=== PATIENT | female | born 1945 | race Caucasian/White ===

== ENCOUNTER 2018-09-09 18:09 | Emergency (ER) | payer MEDICARE ==
[2018-09-09] MEDS ORDERED: NORCO 5/325 MG PO ONE (18:22)
[2018-09-09] MEDS ORDERED: Lopressor 25MG Tab PO ONE (18:22)
--- NOTE | 2018-09-09 18:26 | ERPHSYRPT ---
- History of Present Illness Time Seen by Provider: 09/09/18 18:23 Source: patient Patient Subjective Stated Complaint: Pt states "I am having pain on the right shoulder and this rash on the right side since yesterday. Also, my blood pressure is up." Triage Nursing Assessment: Pt alert and oriented X 3, skin Pwd. Pt ambulates with an upright steady gait, able to speak in clear full sentences. Pt has rash on her right shoulder and painful to touch. Physician History: mod painful ache rash of the right chest wall for one day, missed her blood pressure pill today, no fever, no headache, not dizzy, no NV Allergies/Adverse Reactions: No Known Drug Allergies Allergy (Unverified 11/02/15 17:44) Home Medications: Aspirin EC 81 mg [Ecotrin 81 mg] 81 mg PO DAILY 11/02/12 [History] Hydrochlorothiazide 12.5 mg PO BID 11/02/12 [History] Levothyroxine Sodium 100 Mcg [Synthroid 100 Mcg] 100 mcg PO DAILY 11/02/12 [History] Metoprolol Tartrate 50 mg [Lopressor 50 MG] 75 mg PO BID 11/02/12 [History ] Pravastatin Sodium 40 mg PO DAILY 11/02/12 [History] Losartan Potassium [Cozaar 100Mg Tablet] 100 mg PO DAILY 11/02/15 [History] Hx Tetanus, Diphtheria Vaccination/Date Given: Yes Hx Influenza Vaccination/Date Given: No Hx Pneumococcal Vaccination/Date Given: No Immunizations Up to Date: Yes - Review of Systems Constitutional: No Fever, No Lethargy Eyes: No Eye Pain, No Eye Redness, No Vision Changes Ears, Nose, & Throat: No Nose Congestion Respiratory: No Cough, No Dyspnea Cardiac: No Chest Pain, No Syncope Abdominal/Gastrointestinal: No Abdominal Pain, No Nausea, No Vomiting Skin: Rash Neurological: No Dizziness, No Focal Weakness, No Headache - Past Medical History Pertinent Past Medical History: Yes Neurological History: No Pertinent History, Other ENT History: No Pertinent History Cardiac History: High Cholesterol, Hypertension Respiratory History: No Pertinent History Endocrine Medical History: Hypothyroidism Musculoskeletal History: No Pertinent History GI Medical History: No Pertinent History History: No Pertinent History Psycho-Social History: No Pertinent History Female Reproductive Disorders: No Pertinent History - Past Surgical History Past Surgical History: Yes Neuro Surgical History: No Pertinent History Cardiac: Other Respiratory: No Pertinent History Gastrointestinal: No Pertinent History Genitourinary: No Pertinent History Musculoskeletal: No Pertinent History Female Surgical History: Hysterectomy Other Surgical History: bilateral carotid artery surgery - Social History Smoking Status: Former smoker Exposure to second hand smoke: Yes Drug Use: none Patient Lives Alone: No - Female History Hx Now: No - Nursing Vital Signs Nursing Vital Signs: Initial Vital Signs Temperature 98.7 F 09/09/18 18:14 Pulse Rate 94 H 09/09/18 18:14 Respiratory Rate 18 09/09/18 18:14 Blood Pressure 192/93 09/09/18 18:14 O2 Sat by Pulse Oximetry 96 09/09/18 18:14 Pain Scale Pain Intensity 8 - Physical Exam General Appearance: no apparent distress Eye Exam: PERRL/EOMI, eyes nml inspection Ears, Nose, Throat Exam: moist mucous membranes Neck Exam: normal inspection, non-tender, supple, full range of motion Respiratory Exam: normal breath sounds Cardiovascular Exam: regular rate/rhythm Gastrointestinal/Abdomen Exam: soft, No tenderness Extremity Exam: No swelling Neurologic Exam: alert, oriented x 3, cooperative Skin Exam: warm, dry, other (right chest wall red rash consistent w/ shingles dermatome) SpO2 Interpretation: normal SpO2: 96 Oxygen Delivery: Room Air Ordered Tests: Medication Summary Discontinued Medications Generic Name Dose Route Start Last Admin Trade Name Lázaroq PRN Reason Stop Dose Admin Hydrocodone Bitart/Acetaminophen 1 tab 09/09/18 18:22 09/09/18 18:33 [place] 5/325 Mg PO 09/09/18 18:23 1 tab STAT ONE Administration Hydrocodone Bitart/Acetaminophen Confirm 09/09/18 18:29 [place] 5/325 Mg Administered 09/09/18 18:30 Dose 1 tab .ROUTE .STK-MED ONE Acyclovir 800 mg 09/09/18 19:00 Zovirax 800 Mg PO 10/09/18 18:59 5XD ALTHEA Acyclovir Confirm 09/09/18 18:29 Zovirax 200 Mg Administered 09/09/18 18:30 Dose 800 mg .ROUTE .STK-MED ONE Acyclovir 800 mg 09/09/18 18:38 09/09/18 18:40 Zovirax 800 Mg PO 09/09/18 18:39 800 mg ONCE ONE Administration Metoprolol Tartrate 25 mg 09/09/18 18:22 09/09/18 18:33 Lopressor 25mg Tab PO 09/09/18 18:23 25 mg STAT ONE Administration Metoprolol Tartrate Confirm 09/09/18 18:29 Lopressor 25mg Tab Administered 09/09/18 18:30 Dose 25 mg .ROUTE .STK-MED ONE - Progress Progress: improved Progress Note: 09/09/18 18:[address] Whiting at 19:00 Counseled pt/family regarding: diagnosis, need for follow-up - Departure Time of Disposition: 19:02 Departure Disposition: Home Clinical Impression: Shingles Qualifiers: Herpes zoster complications: without complications Qualified Code(s): B02.9 - Zoster without complications Condition: Stable Critical Care Time: No Referrals: CEM WALKER [Primary Care Provider] - Additional Instructions: see your doctorj, return if worse, norco warnings given, acyclovir Prescriptions: Hydrocodone Bit/Acetaminophen [[place] 5-325 Tablet] 1 each PO Q6H PRN PRN #15 tablet MDD 4 PRN Reason: Pain Acyclovir 800 mg [Zovirax 800 mg] 800 mg PO 5XD 7 Days #35 tablet
[2018-09-09] MEDS ORDERED: Lopressor 25MG Tab ONE (18:29)
[2018-09-09] MEDS ORDERED: ZOVIRAX 200 MG ONE (18:29)
[2018-09-09] MEDS ORDERED: NORCO 5/325 MG ONE (18:29)
[2018-09-09] MEDS ORDERED: ZOVIRAX 800 MG PO ONE (18:38)
[2018-09-09] MEDS ORDERED: ZOVIRAX 800 MG PO SCH (19:00)
[2018-09-09 19:19] VITALS: BP 161/68; PULSE 68; O2SAT 93
== END 2018-09-09 19:50 | disposition home or self-care (01) ==
LOC: ED 18:09
DX: B02.9 Zoster without complications (principal); Z79.899 Other long term (current) drug therapy
CPT/HCPCS: 99283; A9270-GY

== ENCOUNTER 2019-09-04 10:58 | Inpatient (IN) | payer MEDICARE ==
[2019-09-04] MEDS ORDERED: MORPHINE SULFATE 4 MG INJ IV ONE (11:04)
[2019-09-04] MEDS ORDERED: BABY ASPIRIN 81 MG CHEW PO ONE (11:04)
[2019-09-04] MEDS ORDERED: Sodium Chloride 0.9% 1000 ML 1,000 ML IV SCH (11:15)
[2019-09-04] MEDS ORDERED: BABY ASPIRIN 81 MG CHEW ONE (11:17)
[2019-09-04] MEDS ORDERED: MORPHINE SULFATE 4 MG INJ ONE (11:18)
[2019-09-04 11:24] LABS: Absolute Neutrophil Ct (ANC) 8.72 (1.4-6.9); BASOPHIL % 0.4 % (0.0-0.4); Basophil (Absolute #) 0.05 (0-0.4); Eosinophil % 3.7 % (0.00-5.0); Eosinophil (Absolute #) 0.46 (0-0.5); Hematocrit 38.9 % (35-47); Hemoglobin 12.8 gm/dl (12.0-16.0); INR 0.99 (0.8-3.0); Lymphocyte (Absolute #) 2.26 (1.0-4.6); Lymphocytes % 18.2 % (24.0-44.0); Mean Cell Volume 85.9 fl (78-100); Mean Corpuscular Hemoglobin 28.3 pg (26-32); Mean Corpuscular Hgb Concent. 32.9 g/dl (32-36); Mean Platelet Volume 10.3 fl (6-9.5); Monocyte (Absolute #) 0.96 (0.0-1.3); Monocytes % 7.7 % (0.0-12.0); PROTIME 11.2 SECONDS (9.95-12.35); Platelet Count 279 K/mm3 (150-450); Red Blood Count 4.53 M/mm3 (4.1-5.4); White Blood Count 12.5 K/mm3 (4.0-10.5)
[2019-09-04 11:27] LABS: PTT 32.3 SECONDS (25.3-37.0)
[2019-09-04 11:36] LABS: ALBUMIN 4.8 g/dL (3.5-5.0); ANION GAP 18.2 MEQ/L (5-15); BILIRUBIN,TOTAL 0.7 mg/dL (0.2-1.3); Calcium 11.2 mg/dL (8.4-10.2); Creatinine 1 1.25 mg/dL (0.52-1.04); Potassium 4.4 mmol/L (3.5-5.1); Total Protein 8.8 g/dL (6.3-8.2)
--- NOTE | 2019-09-04 11:59 | ERPHSYRPT ---
- History of Present Illness Time Seen by Provider: 09/04/19 10:59 Historian: patient Exam Limitations: no limitations Patient Subjective Stated Complaint: Chest pain Triage Nursing Assessment: Patient ambulated back to ED and transferred self to bed. Patient A+O X 3. Patient's skin pink, warm and dry. Patient complains of chest pain since last night constant pressure 8/10. Patient has had N/V. Patient also complains of trudy lower extremity pain. Lungs clear a/p trudy. Heart tones audible. No edema noted. Timing/Duration: yesterday, constant Activities at Onset: none Quality: dullness, pressure Location: substernal Severity of Pain-Max: moderate Severity of Pain-Current: moderate Modifying Factors: Improves With: nothing. Worsens With: nitroglycerin Associated Symptoms: nausea, vomiting, diaphoresis, No shortness of breath Prior Chest Pain/Cardiac Workup: no prior chest pain, no prior cardiac workup Nitro Today/Relief: 0.4 mg x 2, no relief Aspirin Treatment Today: 325 mg x 1, provided at home Allergies/Adverse Reactions: No Known Drug Allergies Allergy (Verified 09/04/19 11:19) Home Medications: Aspirin EC 81 mg [Ecotrin 81 mg] 81 mg PO DAILY 11/02/12 [History] Levothyroxine Sodium 100 Mcg [Synthroid 100 Mcg] 125 mcg PO DAILY 11/02/12 [History] Metoprolol Tartrate 50 mg [Lopressor 50 MG] 100 mg PO BID 11/02/12 [ History] Losartan Potassium [Cozaar 100Mg Tablet] 100 mg PO DAILY 11/02/15 [History] Amlodipine Besylate [Norvasc] 1 tab PO DAILY 09/04/19 [History] Atorvastatin Calcium 1 tab PO HS 09/04/19 [History] Triamterene/Hydrochlorothiazid [Maxzide 37.5 mg-25 mg Tablet] 1 tab PO DAILY 08/13 [History] Hx Tetanus, Diphtheria Vaccination/Date Given: Yes Hx Influenza Vaccination/Date Given: No Hx Pneumococcal Vaccination/Date Given: No Immunizations Up to Date: Yes - Review of Systems Constitutional: No Fever, No Chills Eyes: No Symptoms Ears, Nose, & Throat: No Symptoms Respiratory: No Cough, No Dyspnea, No Dyspnea on Exertion (TRUONG) Cardiac: No Chest Pain, No Edema, No Syncope Abdominal/Gastrointestinal: Nausea, Vomiting, No Abdominal Pain, No Diarrhea Genitourinary Symptoms: No Dysuria Musculoskeletal: No Back Pain, No Neck Pain Skin: No Rash Neurological: No Dizziness, No Focal Weakness, No Sensory Changes Psychological: No Symptoms Endocrine: No Symptoms All Other Systems: Reviewed and Negative - Past Medical History Pertinent Past Medical History: Yes Neurological History: No Pertinent History, Other ENT History: No Pertinent History Cardiac History: High Cholesterol, Hypertension Respiratory History: No Pertinent History Endocrine Medical History: Hypothyroidism Musculoskeletal History: No Pertinent History GI Medical History: No Pertinent History History: No Pertinent History Psycho-Social History: No Pertinent History Female Reproductive Disorders: No Pertinent History - Past Surgical History Past Surgical History: Yes Neuro Surgical History: No Pertinent History Cardiac: Other Respiratory: No Pertinent History Gastrointestinal: No Pertinent History Genitourinary: No Pertinent History Musculoskeletal: No Pertinent History Female Surgical History: Hysterectomy Other Surgical History: bilateral carotid artery surgery - Social History Smoking Status: Former smoker Exposure to second hand smoke: Yes Drug Use: none Patient Lives Alone: No - Female History Hx Last Menstrual Period: hysterectomy - Nursing Vital Signs Nursing Vital Signs: Initial Vital Signs Temperature 97.5 F 09/04/19 11:05 Pulse Rate 69 09/04/19 11:05 Respiratory Rate 18 09/04/19 11:05 Blood Pressure 138/75 09/04/19 11:05 O2 Sat by Pulse Oximetry 97 09/04/19 11:05 Pain Scale Pain Intensity 8 - Physical Exam General Appearance: no apparent distress, alert Eye Exam: PERRL/EOMI, eyes nml inspection Ears, Nose, Throat Exam: normal ENT inspection, moist mucous membranes Neck Exam: normal inspection, non-tender, supple, full range of motion Respiratory Exam: normal breath sounds, lungs clear, No respiratory distress Cardiovascular Exam: regular rate/rhythm, normal heart sounds Gastrointestinal/Abdomen Exam: soft, No tenderness, No mass Back Exam: normal inspection, No CVA tenderness, No vertebral tenderness Extremity Exam: normal inspection, normal range of motion Neurologic Exam: alert, oriented x 3, cooperative, normal mood/affect, sensation nml, No motor deficits Skin Exam: normal color, warm, dry SpO2: 97 - Course EKG Interpreted by Me: RATE (72), Sinus Rhythm, NORMAL AXIS, NORMAL INTERVALS, NORMAL QRS - Radiology Exams Chest X-ray Interpretation: Interpreted by me (severe roto scoliosis makes reading the film very difficult. However no acute processes can't be identified. I) Ordered Tests: Active Orders 24 hr Category Date Time Status CHEST 1 VIEW (PORTABLE) Stat Exams 09/04/19 11:47 Taken CBC W DIFF Stat Lab 09/04/19 11:12 Completed CK-Creatinine Phosphokinase Stat Lab 09/04/19 11:12 Completed CMP Stat Lab 09/04/19 11:12 Completed D-DIMER QUANTITATION Stat Lab 09/04/19 11:12 Completed NT PRO BNP Stat Lab 09/04/19 11:12 Completed PROTIME WITH INR Stat Lab 09/04/19 11:12 Completed PTT Stat Lab 09/04/19 11:12 Completed TROPONIN Q3H Lab 09/04/19 11:12 Completed TROPONIN Q3H Lab 09/04/19 14:15 Ordered TROPONIN Q3H Lab 09/04/19 17:15 Ordered TROPONIN Q3H Lab 09/04/19 20:15 Ordered TROPONIN Q3H Lab 09/04/19 23:15 Ordered Medication Summary Generic Name Dose Route Start Last Admin Trade Name Freq PRN Reason Stop Dose Admin Sodium Chloride 1,000 mls @ 50 mls/hr 09/04/19 11:15 09/04/19 11:23 Sodium Chloride 0.9% 1000 Ml IV 10/04/19 11:14 50 mls/hr .Q20H ALTHEA Administration Discontinued Medications Generic Name Dose Route Start Last Admin Trade Name Freq PRN Reason Stop Dose Admin Aspirin 324 mg 09/04/19 11:04 09/04/19 11:19 Baby Aspirin 81 Mg Chew PO 09/04/19 11:05 324 mg STAT ONE Administration Aspirin Confirm 09/04/19 11:17 Baby Aspirin 81 Mg Chew Administered 09/04/19 11:18 Dose 324 mg .ROUTE .STK-MED ONE Morphine Sulfate 4 mg 09/04/19 11:04 09/04/19 11:20 Morphine Sulfate 4 Mg Inj IV 09/04/19 11:05 4 mg STAT ONE Administration Morphine Sulfate Confirm 09/04/19 11:18 Morphine Sulfate 4 Mg Inj Administered 09/04/19 11:19 Dose 4 mg .ROUTE .STK-MED ONE Lab/Rad Data: Laboratory Result Diagrams 09/04/19 11:12 09/04/19 11:12 Laboratory Results 09/04/19 09/04/19 09/04/19 Range/Units 11:12 11:12 11:12 WBC (4.0-10.5) K/mm3 RBC (4.1-5.4) M/mm3 Hgb (12.0-16.0) gm/dl Hct (35-47) % MCV (78-100) fl MCH (26-32) pg MCHC (32-36) g/dl RDW (11.5-14.0) % Plt Count (150-450) K/mm3 MPV (6-9.5) fl Gran % (36.0-66.0) % Eos # (Auto) (0-0.5) Absolute Lymphs (auto) (1.0-4.6) Absolute Monos (auto) (0.0-1.3) Lymphocytes % (24.0-44.0) % Monocytes % (0.0-12.0) % Eosinophils % (0.00-5.0) % Basophils % (0.0-0.4) % Absolute Granulocytes (1.4-6.9) Basophils # (0-0.4) PT 11.2 (9.95-12.35) SECONDS INR 0.99 (0.8-3.0) APTT 32.3 (25.3-37.0) SECONDS D-Dimer 492 (215-500) ng/mL Sodium 141 (137-145) mmol/L Potassium 4.4 (3.5-5.1) mmol/L Chloride 102 (98-107) mmol/L Carbon Dioxide 25 (22-30) mmol/L Anion Gap 18.2 H (5-15) MEQ/L BUN 22 H (7-17) mg/dL Creatinine 1.25 H (0.52-1.04) mg/dL Estimated GFR 44.5 ML/MIN Glucose 109 H (74-106) mg/dL Calcium 11.2 H (8.4-10.2) mg/dL Total Bilirubin 0.70 (0.2-1.3) mg/dL AST 77 H (14-36) U/L ALT 86 H (0-35) U/L Alkaline Phosphatase 108 (38-126) U/L Creatine Kinase 32 (30-135) U/L Troponin I < 0.012 (0.000-0.034) ng/mL NT-Pro-B Natriuret Pep 1320 H (0-900) pg/mL Serum Total Protein 8.8 H (6.3-8.2) g/dL Albumin 4.8 (3.5-5.0) g/dL 09/04/19 Range/Units 11:12 WBC 12.5 H (4.0-10.5) K/mm3 RBC 4.53 (4.1-5.4) M/mm3 Hgb 12.8 (12.0-16.0) gm/dl Hct 38.9 (35-47) % MCV 85.9 (78-100) fl MCH 28.3 (26-32) pg MCHC 32.9 (32-36) g/dl RDW 15.0 H (11.5-14.0) % Plt Count 279 (150-450) K/mm3 MPV 10.3 H (6-9.5) fl Gran % 70.0 H (36.0-66.0) % Eos # (Auto) 0.46 (0-0.5) Absolute Lymphs (auto) 2.26 (1.0-4.6) Absolute Monos (auto) 0.96 (0.0-1.3) Lymphocytes % 18.2 L (24.0-44.0) % Monocytes % 7.7 (0.0-12.0) % Eosinophils % 3.7 (0.00-5.0) % Basophils % 0.4 (0.0-0.4) % Absolute Granulocytes 8.72 H (1.4-6.9) Basophils # 0.05 (0-0.4) PT (9.95-12.35) SECONDS INR (0.8-3.0) APTT (25.3-37.0) SECONDS D-Dimer (215-500) ng/mL Sodium (137-145) mmol/L Potassium (3.5-5.1) mmol/L Chloride (98-107) mmol/L Carbon Dioxide (22-30) mmol/L Anion Gap (5-15) MEQ/L BUN (7-17) mg/dL Creatinine (0.52-1.04) mg/dL Estimated GFR ML/MIN Glucose (74-106) mg/dL Calcium (8.4-10.2) mg/dL Total Bilirubin (0.2-1.3) mg/dL AST (14-36) U/L ALT (0-35) U/L Alkaline Phosphatase (38-126) U/L Creatine Kinase (30-135) U/L Troponin I (0.000-0.034) ng/mL NT-Pro-B Natriuret Pep (0-900) pg/mL Serum Total Protein (6.3-8.2) g/dL Albumin (3.5-5.0) g/dL - Progress Progress: improved Discussed with : Otf (is here) Will see patient in: hospital (observation) ( in) - Departure Departure Disposition: Observation Clinical Impression: Chest pain Condition: Stable Critical Care Time: No Referrals: CEM WALKER [Primary Care Provider] -
[2019-09-04] MEDS ORDERED: MILK OF MAGNESIA 30 ML PO PRN (14:11)
[2019-09-04] MEDS ORDERED: Senokot-S Tablet PO PRN (14:11)
[2019-09-04] MEDS ORDERED: MAALOX ES 30 ML UNIT DOSE PO PRN (14:11)
[2019-09-04] MEDS: MORPHINE SULFATE 2 MG INJ IV PRN ×2 (16:06→16:30)
[2019-09-04] MEDS: Zofran 4 MG/2 ML VIAL IV PRN (16:06)
[2019-09-04] MEDS: Sodium Chloride 0.9% 500 ML 500 ML IV SCH (16:30)
[2019-09-04] MEDS ORDERED: Nitrostat 0.4 MG (ED) SL ONE (16:49)
[2019-09-04] MEDS ORDERED: Nitrostat 0.4 MG Tablet SL PRN (17:25)
--- NOTE | 2019-09-04 19:18 | XRAY ---
Indication: Chest pain. Comparison: June 20, 2009. Portable chest demonstrates new lingula consolidation, atelectasis versus organizing pneumonia versus mass. Heart remains borderline enlarged with stable chunky left perihilar calcified nodes. Bony thorax intact again with mild osteopenia, degenerative changes, and scoliosis. Impression: New lingula consolidation with partial differential offered above. Comment: Lingula consolidation not reported on preliminary interpretation by the ER clinician. Telephone report given to Dr. Marshall in the ER at 1912 hrs. on September 04, 2019.
[2019-09-04] MEDS: Klor Con 10 MEQ PO SCH (21:11)
[2019-09-04] MEDS: Toprol Xl 100 MG PO SCH (21:11)
[2019-09-05] MEDS: TYLENOL 325 MG PO PRN
[2019-09-05] MEDS: MORPHINE SULFATE 2 MG INJ IV PRN ×3 (00:49→14:38)
[2019-09-05] MEDS: Zofran 4 MG/2 ML VIAL IV PRN (03:35)
[2019-09-05 04:51] LABS: Risk Ratio 4.1
[2019-09-05 09:00] LABS: ALBUMIN 3.9 g/dL (3.5-5.0); ANION GAP 18.3 MEQ/L (5-15); BILIRUBIN,TOTAL 0.4 mg/dL (0.2-1.3); Calcium 10.2 mg/dL (8.4-10.2); Creatinine 1 1.19 mg/dL (0.52-1.04); Potassium 5.2 mmol/L (3.5-5.1); Total Protein 6.9 g/dL (6.3-8.2)
[2019-09-05 09:06] LABS: Absolute Neutrophil Ct (ANC) 7.84 (1.4-6.9); BASOPHIL % 0.3 % (0.0-0.4); Basophil (Absolute #) 0.03 (0-0.4); Eosinophil % 4.2 % (0.00-5.0); Eosinophil (Absolute #) 0.48 (0-0.5); Hematocrit 36.6 % (35-47); Hemoglobin 11.7 gm/dl (12.0-16.0); Lymphocyte (Absolute #) 2.19 (1.0-4.6); Mean Cell Volume 89.5 fl (78-100); Mean Corpuscular Hemoglobin 28.6 pg (26-32); Mean Platelet Volume 11.2 fl (6-9.5); Monocytes % 8.7 % (0.0-12.0); Neutrophil % 67.8 % (36.0-66.0); Platelet Count 224 K/mm3 (150-450); Red Blood Count 4.09 M/mm3 (4.1-5.4); Red Cell Distribution Width 15.5 % (11.5-14.0); White Blood Count 11.5 K/mm3 (4.0-10.5)
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
[2019-09-05] MEDS: Klor Con 10 MEQ PO SCH (09:41)
[2019-09-05] MEDS: Toprol Xl 100 MG PO SCH (09:42)
[2019-09-05] MEDS: ENOXAPARIN SODIUM SQ SCH (09:44)
[2019-09-05 09:50] LABS: CK-Creatinine Phosphokinase 23 U/L (30-135); LIPASE 57 U/L (23-300)
[2019-09-05] MEDS ORDERED: SYNTHROID 100 MCG PO SCH (10:00)
[2019-09-05] MEDS ORDERED: FLUZONE HIGH-DOSE 2019-20 SYR IM ONE (10:00)
[2019-09-05] MEDS ORDERED: Cozaar 50 MG PO SCH (10:00)
[2019-09-05] MEDS ORDERED: Maxzide-25MG Tablet PO SCH (10:00)
[2019-09-05] MEDS ORDERED: NORVASC 5 MG PO SCH (10:00)
[2019-09-05 10:42] LABS: TSH, 3RD Generation 0.964 mIU/L (0.47-4.68)
[2019-09-05] MEDS: ECOTRIN 81 MG PO SCH (11:47)
--- NOTE | 2019-09-05 12:16 | XRAY ---
Indication: Chest pressure. Bilateral arm pain and stiffness. Multiple contiguous axial images obtained through the chest without contrast. Comparison: None Lungs demonstrates mild right base dependent atelectasis, bibasilar fibrosis/scarring, lingula subsegmental atelectasis, left upper lobe calcified granuloma, mild bilateral pleural thickening, and left base calcified pleural plaquing. No suspicious pulmonary mass, infiltrate, or effusion. Heart is enlarged with prominent epicardiac fat bilaterally. Scattered aortic and coronary calcifications. Large left suprahilar and small left perihilar/subcarinal calcified nodes. No pathologic mediastinal lymphadenopathy. Bony thorax demonstrate mild osteopenia, mild degenerative changes throughout the spine, and minimal double curvature scoliosis. Limited upper abdomen demonstrates hepatic/splenic calcified granulomas. Impression: 1. Cardiomegaly, mild bilateral pleural thickening, left base calcified pleural plaquing, and evidence for old granulomatous disease. 2. Lingula subsegmental atelectasis, cardiomegaly, and prominent epicardiac fat I believe corresponds to the recent chest radiograph abnormality. 3. No acute cardiopulmonary abnormalities on this noncontrast exam. CT DI 14.22
[2019-09-05 13:00] LABS: Appearance SLIGHTLY CLOUDY (CLEAR); Bacteria FEW /HPF (NEGATIVE); Bilirubin NEGATIVE (NEGATIVE); Blood NEGATIVE Ery/ul (0-5); Epithelial Cells RARE /HPF (FEW); Glucose NEGATIVE (NEGATIVE); Ketones NEGATIVE (NEGATIVE); Leukocyte Esterase LARGE (NEGATIVE); Mucus SLIGHT /HPF (NEGATIVE); Nitrite NEGATIVE (NEGATIVE); Non-Squamous Epithelial Cells RARE /HPF (FEW); Protein,Urine Dip NEGATIVE (Negative); Specific Gravity 1.011 (1.005-1.025); Urobilinogen NEGATIVE mg/dL (0-1); WBC >100 /HPF (0-5)
[2019-09-05] MEDS ORDERED: Lasix 20 MG/2 ML ONE (18:44)
[2019-09-05] MEDS: NON-FORMULARY ITEM PO SCH ×2 (18:48→21:06)
[2019-09-05 21:57] LABS: Appearance SLIGHTLY CLOUDY (CLEAR); Bacteria FEW /HPF (NEGATIVE); Bilirubin NEGATIVE (NEGATIVE); Blood NEGATIVE Ery/ul (0-5); Epithelial Cells RARE /HPF (FEW); Glucose NEGATIVE (NEGATIVE); Hyaline Casts 0-2 /LPF (0-2); Ketones NEGATIVE (NEGATIVE); Leukocyte Esterase LARGE (NEGATIVE); Mucus SLIGHT /HPF (NEGATIVE); Nitrite NEGATIVE (NEGATIVE); Protein,Urine Dip NEGATIVE (Negative); Specific Gravity 1.009 (1.005-1.025); Urobilinogen NEGATIVE mg/dL (0-1); WBC >100 /HPF (0-5)
[2019-09-05] MEDS ORDERED: ZOCOR 20MG PO SCH (22:00)
[2019-09-06 05:15] LABS: Absolute Neutrophil Ct (ANC) 7.14 (1.4-6.9); BASOPHIL % 0.3 % (0.0-0.4); Basophil (Absolute #) 0.03 (0-0.4); Eosinophil (Absolute #) 0.42 (0-0.5); Hematocrit 34.8 % (35-47); Hemoglobin 11.3 gm/dl (12.0-16.0); Lymphocyte (Absolute #) 1.92 (1.0-4.6); Lymphocytes % 18.4 % (24.0-44.0); Mean Cell Volume 87.7 fl (78-100); Mean Corpuscular Hgb Concent. 32.5 g/dl (32-36); Mean Platelet Volume 10.6 fl (6-9.5); Monocyte (Absolute #) 0.91 (0.0-1.3); Monocytes % 8.7 % (0.0-12.0); Neutrophil % 68.6 % (36.0-66.0); Platelet Count 221 K/mm3 (150-450); Red Blood Count 3.97 M/mm3 (4.1-5.4); Red Cell Distribution Width 15.1 % (11.5-14.0); White Blood Count 10.4 K/mm3 (4.0-10.5)
[2019-09-06 05:29] LABS: Mean Corpuscular Hemoglobin 28.4 pg (26-32)
[2019-09-06 06:31] LABS: ALBUMIN 3.8 g/dL (3.5-5.0); ANION GAP 13.3 MEQ/L (5-15); BILIRUBIN,TOTAL 0.4 mg/dL (0.2-1.3); Creatinine 1 1.27 mg/dL (0.52-1.04); MAGNESIUM 1.5 mg/dL (1.6-2.3); Potassium 4.1 mmol/L (3.5-5.1); Total Protein 7.1 g/dL (6.3-8.2)
--- NOTE | 2019-09-06 08:25 | PCM.NOTE ---
Date and Time: 09/06/19818 Subjective Assessment: Patient reports she is feeling better. Not as much leg pain and her states she was able to walk to the bathroom. She is now interested in getting a flu immunization and also a pneumonia immunization (as an outpatient in the clinic). flight test supervisor notes that Dr. Jose saw her yesterday and ordered tests scheduled today and Dr. Mendoza plans to see her today. Patient reports some constipation. No further chest pain. She reports she feels thirsty. She is currently npo for her tests and fluids decreased by well service floorperson to 10 ml/hr. - Review of Systems Constitutional: No Symptoms Ears, Nose, & Throat: No Symptoms Respiratory: No Symptoms Cardiac: No Symptoms Abdominal/Gastrointestinal: Constipation Genitourinary Symptoms: No Symptoms Musculoskeletal: No Symptoms Skin: No Symptoms Objective Exam General Appearance: no apparent distress, obese, other ( at bedside) Neurologic Exam: alert, cooperative, normal mood/affect Skin Exam: normal color, warm, dry Respiratory Exam: normal breath sounds, lungs clear, No crackles/rales, No rhonchi, No wheezing Cardiovascular Exam: regular rate/rhythm, normal heart sounds, No murmur, No friction rub, No gallop Gastrointestinal/Abdomen Exam: soft, normal bowel sounds, No tenderness, No distention, No mass, No guarding Extremity Exam: normal inspection, other (no c/e, jesus hose in place) OBJECTIVE DATA Vital Signs: Vital Signs - 24 hr Temp Pulse Resp BP Pulse Ox 09/06/19 08:00 97.8 F 67 18 115/59 99 09/06/19 05:00 96 09/06/19 04:00 97.6 F 71 20 134/62 96 09/06/19 01:00 94 L 09/06/19 00:00 97.7 F 73 18 126/59 94 L 09/05/19 20:11 96 09/05/19 20:00 97.4 F 64 18 100/55 96 09/05/19 16:06 98 F 66 20 109/57 90 L 09/05/19 16:00 90 L 09/05/19 12:19 97.9 F 64 20 118/64 92 L 09/05/19 12:00 92 L Oxygen-Last 24 hours O2 Percentage 2 Liters = 28% O2 Percentage 2 Liters = 28% O2 Percentage 2 Liters = 28% O2 Percentage 2 Liters = 28% O2 Percentage 2 Liters = 28% Pain Assessment - Last Documented Pain Intensity 10 Pain Scale [facility] Intake and Output: Intake & Output 09/04/19 09/05/19 09/06/19 09/07/19 06:59 06:59 06:59 06:59 Intake Total 878 1915 Output Total 500 2950 Balance 378 -1035 Weight 71.4 kg 72.4 kg Lab Results: Lab Results-Last 24 Hours 09/04/19 09/05/19 09/05/19 Range/Units 11:00 04:00 08:35 WBC 11.5 H (4.0-10.5) K/mm3 RBC 4.09 L (4.1-5.4) M/mm3 Hgb 11.7 L (12.0-16.0) gm/dl Hct 36.6 (35-47) % MCV 89.5 (78-100) fl MCH 28.6 (26-32) pg MCHC 32.0 (32-36) g/dl RDW 15.5 H (11.5-14.0) % Plt Count 224 (150-450) K/mm3 MPV 11.2 H (6-9.5) fl Gran % 67.8 H (36.0-66.0) % Eos # (Auto) 0.48 (0-0.5) Absolute Lymphs (auto) 2.19 (1.0-4.6) Absolute Monos (auto) 1.00 (0.0-1.3) Lymphocytes % 19.0 L (24.0-44.0) % Monocytes % 8.7 (0.0-12.0) % Eosinophils % 4.2 (0.00-5.0) % Basophils % 0.3 (0.0-0.4) % Absolute Granulocytes 7.84 H (1.4-6.9) Basophils # 0.03 (0-0.4) Ionized Calcium (1.12-1.32) mmol/L Sodium 140 (137-145) mmol/L Potassium 5.2 H (3.5-5.1) mmol/L Chloride 107 (98-107) mmol/L Carbon Dioxide 19 L (22-30) mmol/L Anion Gap 18.3 H (5-15) MEQ/L BUN 28 H (7-17) mg/dL Creatinine 1.19 H (0.52-1.04) mg/dL Estimated GFR 47.1 ML/MIN Glucose 111 H (74-106) mg/dL Calcium 10.2 (8.4-10.2) mg/dL Magnesium (1.6-2.3) mg/dL Total Bilirubin 0.40 (0.2-1.3) mg/dL AST 90 H (14-36) U/L ALT 102 H (0-35) U/L Alkaline Phosphatase 80 (38-126) U/L Creatine Kinase (30-135) U/L Serum Total Protein 6.9 (6.3-8.2) g/dL Albumin 3.9 (3.5-5.0) g/dL Amylase (30-110) U/L Lipase (23-300) U/L Vitamin B12 477 (239-931) pg/mL 25-OH Vitamin D Total (30-100) ng/mL TSH 3rd Generation 0.964 (0.47-4.68) mIU/L PTH Intact 57 (15-72) pg/mL Urine Color (YELLOW) Urine Appearance (CLEAR) Urine pH (5-6) Ur Specific Docena (1.005-1.025) Urine Protein (Negative) Urine Ketones (NEGATIVE) Urine Blood (0-5) Facundo/ul Urine Nitrite (NEGATIVE) Urine Bilirubin (NEGATIVE) Urine Urobilinogen (0-1) mg/dL Ur Leukocyte Esterase (NEGATIVE) Urine WBC (Auto) (0-5) /HPF Urine RBC (Auto) (0-2) /HPF U Hyaline Cast (Auto) (0-2) /LPF U Epithel Cells (Auto) (FEW) /HPF Urine Bacteria (Auto) (NEGATIVE) /HPF U Non-Squamous Epi Cells (FEW) /HPF Urine Mucus (Auto) (NEGATIVE) /HPF Urine Culture Reflexed (NO) Ur Random Creatinine MG/DL U Random Total Protein (0-12) mg/dL Urine Glucose (NEGATIVE) mg/dL 09/05/19 09/05/19 09/05/19 Range/Units 08:51 08:52 08:52 WBC (4.0-10.5) K/mm3 RBC (4.1-5.4) M/mm3 Hgb (12.0-16.0) gm/dl Hct (35-47) % MCV (78-100) fl MCH (26-32) pg MCHC (32-36) g/dl RDW (11.5-14.0) % Plt Count (150-450) K/mm3 MPV (6-9.5) fl Gran % (36.0-66.0) % Eos # (Auto) (0-0.5) Absolute Lymphs (auto) (1.0-4.6) Absolute Monos (auto) (0.0-1.3) Lymphocytes % (24.0-44.0) % Monocytes % (0.0-12.0) % Eosinophils % (0.00-5.0) % Basophils % (0.0-0.4) % Absolute Granulocytes (1.4-6.9) Basophils # (0-0.4) Ionized Calcium (1.12-1.32) mmol/L Sodium (137-145) mmol/L Potassium (3.5-5.1) mmol/L Chloride (98-107) mmol/L Carbon Dioxide (22-30) mmol/L Anion Gap (5-15) MEQ/L BUN (7-17) mg/dL Creatinine (0.52-1.04) mg/dL Estimated GFR ML/MIN Glucose (74-106) mg/dL Calcium (8.4-10.2) mg/dL Magnesium (1.6-2.3) mg/dL Total Bilirubin (0.2-1.3) mg/dL AST (14-36) U/L ALT (0-35) U/L Alkaline Phosphatase (38-126) U/L Creatine Kinase 23 L (30-135) U/L Serum Total Protein (6.3-8.2) g/dL Albumin (3.5-5.0) g/dL Amylase 57 (30-110) U/L Lipase 57 (23-300) U/L Vitamin B12 (239-931) pg/mL 25-OH Vitamin D Total 46.8 (30-100) ng/mL TSH 3rd Generation (0.47-4.68) mIU/L PTH Intact (15-72) pg/mL Urine Color (YELLOW) Urine Appearance (CLEAR) Urine pH (5-6) Ur Specific Docena (1.005-1.025) Urine Protein (Negative) Urine Ketones (NEGATIVE) Urine Blood (0-5) Facundo/ul Urine Nitrite (NEGATIVE) Urine Bilirubin (NEGATIVE) Urine Urobilinogen (0-1) mg/dL Ur Leukocyte Esterase (NEGATIVE) Urine WBC (Auto) (0-5) /HPF Urine RBC (Auto) (0-2) /HPF U Hyaline Cast (Auto) (0-2) /LPF U Epithel Cells (Auto) (FEW) /HPF Urine Bacteria (Auto) (NEGATIVE) /HPF U Non-Squamous Epi Cells (FEW) /HPF Urine Mucus (Auto) (NEGATIVE) /HPF Urine Culture Reflexed (NO) Ur Random Creatinine MG/DL U Random Total Protein (0-12) mg/dL Urine Glucose (NEGATIVE) mg/dL 09/05/19 09/05/19 09/05/19 Range/Units 09:16 12:50 20:17 WBC (4.0-10.5) K/mm3 RBC (4.1-5.4) M/mm3 Hgb (12.0-16.0) gm/dl Hct (35-47) % MCV (78-100) fl MCH (26-32) pg MCHC (32-36) g/dl RDW (11.5-14.0) % Plt Count (150-450) K/mm3 MPV (6-9.5) fl Gran % (36.0-66.0) % Eos # (Auto) (0-0.5) Absolute Lymphs (auto) (1.0-4.6) Absolute Monos (auto) (0.0-1.3) Lymphocytes % (24.0-44.0) % Monocytes % (0.0-12.0) % Eosinophils % (0.00-5.0) % Basophils % (0.0-0.4) % Absolute Granulocytes (1.4-6.9) Basophils # (0-0.4) Ionized Calcium 1.22 (1.12-1.32) mmol/L Sodium (137-145) mmol/L Potassium (3.5-5.1) mmol/L Chloride (98-107) mmol/L Carbon Dioxide (22-30) mmol/L Anion Gap (5-15) MEQ/L BUN (7-17) mg/dL Creatinine (0.52-1.04) mg/dL Estimated GFR ML/MIN Glucose (74-106) mg/dL Calcium (8.4-10.2) mg/dL Magnesium (1.6-2.3) mg/dL Total Bilirubin (0.2-1.3) mg/dL AST (14-36) U/L ALT (0-35) U/L Alkaline Phosphatase (38-126) U/L Creatine Kinase (30-135) U/L Serum Total Protein (6.3-8.2) g/dL Albumin (3.5-5.0) g/dL Amylase (30-110) U/L Lipase (23-300) U/L Vitamin B12 (239-931) pg/mL 25-OH Vitamin D Total (30-100) ng/mL TSH 3rd Generation (0.47-4.68) mIU/L PTH Intact (15-72) pg/mL Urine Color YELLOW (YELLOW) Urine Appearance SLIGHTLY CLOUDY (CLEAR) Urine pH 6.0 (5-6) Ur Specific Docena 1.011 (1.005-1.025) Urine Protein NEGATIVE (Negative) Urine Ketones NEGATIVE (NEGATIVE) Urine Blood NEGATIVE (0-5) Facundo/ul Urine Nitrite NEGATIVE (NEGATIVE) Urine Bilirubin NEGATIVE (NEGATIVE) Urine Urobilinogen NEGATIVE (0-1) mg/dL Ur Leukocyte Esterase LARGE (NEGATIVE) Urine WBC (Auto) >100 (0-5) /HPF Urine RBC (Auto) 16-25 (0-2) /HPF U Hyaline Cast (Auto) 6-10 (0-2) /LPF U Epithel Cells (Auto) RARE (FEW) /HPF Urine Bacteria (Auto) FEW (NEGATIVE) /HPF U Non-Squamous Epi Cells RARE (FEW) /HPF Urine Mucus (Auto) SLIGHT (NEGATIVE) /HPF Urine Culture Reflexed YES (NO) Ur Random Creatinine 51.5 MG/DL U Random Total Protein (0-12) mg/dL Urine Glucose NEGATIVE (NEGATIVE) mg/dL 09/05/19 09/05/19 09/06/19 Range/Units 20:22 20:23 04:30 WBC 10.4 (4.0-10.5) K/mm3 RBC 3.97 L (4.1-5.4) M/mm3 Hgb 11.3 L (12.0-16.0) gm/dl Hct 34.8 L (35-47) % MCV 87.7 (78-100) fl MCH 28.4 (26-32) pg MCHC 32.5 (32-36) g/dl RDW 15.1 H (11.5-14.0) % Plt Count 221 (150-450) K/mm3 MPV 10.6 H (6-9.5) fl Gran % 68.6 H (36.0-66.0) % Eos # (Auto) 0.42 (0-0.5) Absolute Lymphs (auto) 1.92 (1.0-4.6) Absolute Monos (auto) 0.91 (0.0-1.3) Lymphocytes % 18.4 L (24.0-44.0) % Monocytes % 8.7 (0.0-12.0) % Eosinophils % 4.0 (0.00-5.0) % Basophils % 0.3 (0.0-0.4) % Absolute Granulocytes 7.14 H (1.4-6.9) Basophils # 0.03 (0-0.4) Ionized Calcium (1.12-1.32) mmol/L Sodium (137-145) mmol/L Potassium (3.5-5.1) mmol/L Chloride (98-107) mmol/L Carbon Dioxide (22-30) mmol/L Anion Gap (5-15) MEQ/L BUN (7-17) mg/dL Creatinine (0.52-1.04) mg/dL Estimated GFR ML/MIN Glucose (74-106) mg/dL Calcium (8.4-10.2) mg/dL Magnesium (1.6-2.3) mg/dL Total Bilirubin (0.2-1.3) mg/dL AST (14-36) U/L ALT (0-35) U/L Alkaline Phosphatase (38-126) U/L Creatine Kinase (30-135) U/L Serum Total Protein (6.3-8.2) g/dL Albumin (3.5-5.0) g/dL Amylase (30-110) U/L Lipase (23-300) U/L Vitamin B12 (239-931) pg/mL 25-OH Vitamin D Total (30-100) ng/mL TSH 3rd Generation (0.47-4.68) mIU/L PTH Intact (15-72) pg/mL Urine Color YELLOW (YELLOW) Urine Appearance SLIGHTLY CLOUDY (CLEAR) Urine pH 5.0 (5-6) Ur Specific Docena 1.009 (1.005-1.025) Urine Protein NEGATIVE (Negative) Urine Ketones NEGATIVE (NEGATIVE) Urine Blood NEGATIVE (0-5) Facundo/ul Urine Nitrite NEGATIVE (NEGATIVE) Urine Bilirubin NEGATIVE (NEGATIVE) Urine Urobilinogen NEGATIVE (0-1) mg/dL Ur Leukocyte Esterase LARGE (NEGATIVE) Urine WBC (Auto) >100 (0-5) /HPF Urine RBC (Auto) 3-5 (0-2) /HPF U Hyaline Cast (Auto) 0-2 (0-2) /LPF U Epithel Cells (Auto) RARE (FEW) /HPF Urine Bacteria (Auto) FEW (NEGATIVE) /HPF U Non-Squamous Epi Cells (FEW) /HPF Urine Mucus (Auto) SLIGHT (NEGATIVE) /HPF Urine Culture Reflexed YES (NO) Ur Random Creatinine MG/DL U Random Total Protein 13 H (0-12) mg/dL Urine Glucose NEGATIVE (NEGATIVE) mg/dL 09/06/19 Range/Units 04:30 WBC (4.0-10.5) K/mm3 RBC (4.1-5.4) M/mm3 Hgb (12.0-16.0) gm/dl Hct (35-47) % MCV (78-100) fl MCH (26-32) pg MCHC (32-36) g/dl RDW (11.5-14.0) % Plt Count (150-450) K/mm3 MPV (6-9.5) fl Gran % (36.0-66.0) % Eos # (Auto) (0-0.5) Absolute Lymphs (auto) (1.0-4.6) Absolute Monos (auto) (0.0-1.3) Lymphocytes % (24.0-44.0) % Monocytes % (0.0-12.0) % Eosinophils % (0.00-5.0) % Basophils % (0.0-0.4) % Absolute Granulocytes (1.4-6.9) Basophils # (0-0.4) Ionized Calcium (1.12-1.32) mmol/L Sodium 139 (137-145) mmol/L Potassium 4.1 D (3.5-5.1) mmol/L Chloride 103 (98-107) mmol/L Carbon Dioxide 26 (22-30) mmol/L Anion Gap 13.3 (5-15) MEQ/L BUN 31 H (7-17) mg/dL Creatinine 1.27 H (0.52-1.04) mg/dL Estimated GFR 43.7 ML/MIN Glucose 107 H (74-106) mg/dL Calcium 10.0 (8.4-10.2) mg/dL Magnesium 1.5 L (1.6-2.3) mg/dL Total Bilirubin 0.40 (0.2-1.3) mg/dL AST 84 H (14-36) U/L ALT 104 H (0-35) U/L Alkaline Phosphatase 73 (38-126) U/L Creatine Kinase (30-135) U/L Serum Total Protein 7.1 (6.3-8.2) g/dL Albumin 3.8 (3.5-5.0) g/dL Amylase (30-110) U/L Lipase (23-300) U/L Vitamin B12 (239-931) pg/mL 25-OH Vitamin D Total (30-100) ng/mL TSH 3rd Generation (0.47-4.68) mIU/L PTH Intact (15-72) pg/mL Urine Color (YELLOW) Urine Appearance (CLEAR) Urine pH (5-6) Ur Specific Docena (1.005-1.025) Urine Protein (Negative) Urine Ketones (NEGATIVE) Urine Blood (0-5) Facundo/ul Urine Nitrite (NEGATIVE) Urine Bilirubin (NEGATIVE) Urine Urobilinogen (0-1) mg/dL Ur Leukocyte Esterase (NEGATIVE) Urine WBC (Auto) (0-5) /HPF Urine RBC (Auto) (0-2) /HPF U Hyaline Cast (Auto) (0-2) /LPF U Epithel Cells (Auto) (FEW) /HPF Urine Bacteria (Auto) (NEGATIVE) /HPF U Non-Squamous Epi Cells (FEW) /HPF Urine Mucus (Auto) (NEGATIVE) /HPF Urine Culture Reflexed (NO) Ur Random Creatinine MG/DL U Random Total Protein (0-12) mg/dL Urine Glucose (NEGATIVE) mg/dL Radiology Exams: Radiology Procedures Category Date Time Status CHEST 1 VIEW (PORTABLE) Stat Exams 09/04/19 11:47 Completed CHEST WITHOUT CONTRAST [CT] Urgent Exams 09/05/19 08:37 Completed ECHO W/2D AND DOPPLER [US] Routine Exams 09/06/19 Ordered KIDNEY [US] Routine Exams 09/06/19 Ordered Assessment/Plan (1) Chest pain Current Visit: Yes Status: Acute Assessment & Plan: Resolved now. Ruled out for acute NE. Cloth Colors Examiner consulted. Echo ordered. Cardiomegly on chest CT. Code(s): R07.9 - CHEST PAIN, UNSPECIFIED (2) Abnormal chest x-ray Current Visit: Yes Status: Acute Assessment & Plan: Chest CT did not show any suspicious lung mass. Code(s): R93.89 - ABNORMAL FINDINGS ON DX IMAGING OF OTH BODY STRUCTURES (3) Hypercalcemia Current Visit: Yes Status: Acute Assessment & Plan: Now resolved, Vit D level, PTH, ionized calcium and repeat calcium all normal. Code(s): E83.52 - HYPERCALCEMIA (4) Myalgia Current Visit: Yes Status: Acute Assessment & Plan: Improved at this time. Magnesium was low. Will replace if well service floorperson has not already replaced. Code(s): M79.10 - MYALGIA, UNSPECIFIED SITE (5) Hypertension Current Visit: Yes Status: Acute Assessment & Plan: She is currently off of all her antihypertensives. Code(s): I10 - ESSENTIAL (PRIMARY) HYPERTENSION (6) Constipation Current Visit: Yes Status: Acute Assessment & Plan: Will start docusate. Code(s): K59.00 - CONSTIPATION, UNSPECIFIED (7) DVT prophylaxis Current Visit: Yes Status: Acute Assessment & Plan: ON lovenox. Code(s): Z29.9 - ENCOUNTER FOR PROPHYLACTIC MEASURES, UNSPECIFIED (8) Hypothyroidism Current Visit: Yes Status: Acute Assessment & Plan: Continue current dose of levothyroxine. TSH normal. Code(s): E03.9 - HYPOTHYROIDISM, UNSPECIFIED (9) Renal insufficiency Current Visit: Yes Status: Acute Assessment & Plan: Locomotive Engineer Diesel seeing patient, labs ordered and renal US ordered. (10) Urine WBC increased Current Visit: Yes Status: Acute Assessment & Plan: Urine culture in lab Code(s): R82.998 - OTHER ABNORMAL FINDINGS IN URINE
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
[2019-09-06] MEDS: Zofran 4 MG/2 ML VIAL IV PRN ×2 (08:40→17:51)
[2019-09-06] MEDS ORDERED: Magnesium Sulfate 1 GM/2 ML VIAL IV ONE (09:00)
[2019-09-06] MEDS ORDERED: Magnesium 1 Gm / 100 Ml D5W*** 200 ML IV SCH (09:00)
[2019-09-06] MEDS: SYNTHROID 125 MCG PO SCH (09:33)
[2019-09-06] MEDS: Colace 100 MG PO SCH ×2 (09:33→22:08)
[2019-09-06] MEDS: ECOTRIN 81 MG PO SCH (09:33)
[2019-09-06] MEDS: Lasix 20 MG/2 ML IV SCH ×2 (09:34→17:54)
[2019-09-06] MEDS: ENOXAPARIN SODIUM SQ SCH (09:34)
[2019-09-06] MEDS: NON-FORMULARY ITEM PO SCH ×2 (09:34→22:08)
[2019-09-06] MEDS ORDERED: SYNTHROID 100 MCG PO SCH (10:00)
--- NOTE | 2019-09-06 12:37 | CONS ---
CONSULT DATE: 09/06/2019 BRIEF HISTORY: This is a 74 year-old female who was seen because of chest pains. The patient was having some intermittent chest pains which she described as pressure which occurred at rest on Thursday. She was admitted and myocardial infarction was ruled out. In addition, she had been complaining of pain in the right leg which started in the right hip that radiated to right lower extremity. The patient has never had myocardial infarction or heart failure. She has had previous pharmacologic stress tests that was interpreted as normal. CT scan of the chest showed cardiomegaly with pleural plaque and some atelectasis. At the time of examination the patient was feeling better. Her troponin had been in the normal range. The patient denies any exertional type of chest pain, denies any paroxysmal nocturnal dyspnea, no orthopnea, no peripheral edema. She has intermittent palpitations. No syncopal attacks. CARDIAC RISK FACTORS: Negative for diabetes. She has a history of hypertension. She is a reformed smoker quitting about nine years ago but used to smoke a pack of cigarettes a day for more than 30 years. No known hyperlipidemia. FAMILY HISTORY: Positive for coronary artery disease. Her brother had coronary stent. REVIEW OF SYSTEMS: CREDENTIALING MANAGER: There is no history of stroke. No seizures. No chronic headache. RESPIRATORY: She has chronic obstructive lung disease. GI: She has intermittent epigastric pain which she states has been going on for many years. No nausea. No vomiting. No diarrhea. No constipation. : Negative for dysuria or hematuria. No flank pain. No history of urinary tract infection. PERIPHERAL VASCULAR: No history of deep venous thrombosis, denies any history of claudication. MUSCULOSKELETAL: She has some degenerative joint disorder. SKIN: No active dermatological problems. PAST SURGICAL HISTORY: Included hysterectomy. Surgery to the right hand and also left carotid endarterectomy. CURRENT MEDICATIONS: Aspirin, furosemide, Synthroid, Simvastatin. SOCIAL HISTORY: She is . She is a homemaker. She has no significant alcohol intake. PHYSICAL EXAMINATION: Blood pressure 134/62, heart rate 71, respirations about 20. GENERAL: The patient is an elderly female who is alert, oriented who is not in any form of distress and denies any chest pains at the time of examination. HEENT: Unremarkable. NECK: No significant JVD. There is a well healed left carotid endarterectomy scar. CHEST: The breath sounds are clear. CARDIAC: Heart tones are normal. There is no audible rub. The rhythm is regular. ABDOMEN: Soft with normal bowel sounds. No bruit. EXTREMITIES: No significant edema. Decreased distal pulses. LAB DATA AND DIAGNOSTIC TESTS: The EKG shows normal sinus rhythm. No significant ST-T displacement. IMPRESSION: 1) In essence the patient presented with some chest pains somewhat atypical for angina. She does not have any exertional type of chest pains. Her troponin I is normal. In view of the patient having some cardiac risk factors, I would recommend pharmacologic stress test. 2) Hyperlipidemia. I would suggest reducing the dose of simvastatin. Perhaps switching her to atorvastatin. 3) Carotid artery disease status post left carotid endarterectomy. Will do a follow up carotid ultrasound. 4) Hypertension.
--- NOTE | 2019-09-06 14:35 | XRAY ---
Indication: Acute kidney disease. Two-dimensional renal sonogram performed. Comparison: None Both kidneys normal in reniform shape with normal color perfusion. Right kidney measures 9.4 x 3.6 x 3.3 cm and the left measures 10.3 x 4.3 x 1.9 cm. Left lower pole demonstrates 1 cm exophytic cyst. No solid renal mass or hydronephrosis. Cortical medullary differentiation preserved. Broadcast Program Director notes empty urinary bladder and therefore not evaluated. Impression: Left renal cyst. Remaining renal sonogram is negative.
[2019-09-06] MEDS ORDERED: Lasix 20 MG/2 ML IV SCH (17:00)
[2019-09-06] MEDS ORDERED: FLUZONE HIGH-DOSE 2019-20 SYR IM ONE (17:50)
[2019-09-06] MEDS: ROCEPHIN 1 Gm-D5w 50 ml Bag** 1 G/50 ML IVPB IV SCH (17:54)
[2019-09-06] MEDS ORDERED: Phenergan 25 MG INJ IV PRN (21:11)
[2019-09-06] MEDS: Sodium Chloride 0.9% 500 ML 500 ML IV SCH (21:24)
[2019-09-07 04:55] LABS: Absolute Neutrophil Ct (ANC) 8.16 (1.4-6.9); BASOPHIL % 0.3 % (0.0-0.4); Basophil (Absolute #) 0.03 (0-0.4); Eosinophil % 1.6 % (0.00-5.0); Eosinophil (Absolute #) 0.17 (0-0.5); Hematocrit 34.8 % (35-47); Hemoglobin 11.3 gm/dl (12.0-16.0); Lymphocyte (Absolute #) 1.37 (1.0-4.6); Lymphocytes % 12.9 % (24.0-44.0); Mean Cell Volume 87.7 fl (78-100); Mean Corpuscular Hgb Concent. 32.5 g/dl (32-36); Mean Platelet Volume 10.7 fl (6-9.5); Monocyte (Absolute #) 0.89 (0.0-1.3); Monocytes % 8.4 % (0.0-12.0); Neutrophil % 76.8 % (36.0-66.0); Platelet Count 216 K/mm3 (150-450); Red Blood Count 3.97 M/mm3 (4.1-5.4); White Blood Count 10.6 K/mm3 (4.0-10.5)
[2019-09-07 04:58] LABS: Mean Corpuscular Hemoglobin 28.4 pg (26-32)
[2019-09-07 05:05] LABS: ALBUMIN 3.9 g/dL (3.5-5.0); ANION GAP 13.2 MEQ/L (5-15); BILIRUBIN,TOTAL 0.5 mg/dL (0.2-1.3); Calcium 10.2 mg/dL (8.4-10.2); Creatinine 1 1.24 mg/dL (0.52-1.04); Potassium 3.5 mmol/L (3.5-5.1); Total Protein 7.3 g/dL (6.3-8.2)
[2019-09-07] MEDS: Sodium Chloride 0.9% 10 ML FLUSH Syringe IV SCH ×3 (05:27→21:11)
[2019-09-07] MEDS: Colace 100 MG PO SCH ×2 (10:53→21:06)
[2019-09-07] MEDS: ROCEPHIN 1 Gm-D5w 50 ml Bag** 1 G/50 ML IVPB IV SCH (10:53)
[2019-09-07] MEDS: Lasix 40 MG PO SCH ×2 (10:53→18:19)
[2019-09-07] MEDS: NON-FORMULARY ITEM PO SCH ×2 (10:53→21:07)
[2019-09-07] MEDS: SYNTHROID 125 MCG PO SCH (10:53)
[2019-09-07] MEDS: ECOTRIN 81 MG PO SCH (10:53)
[2019-09-07] MEDS: ENOXAPARIN SODIUM SQ SCH (10:54)
--- NOTE | 2019-09-07 16:53 | PCM.NOTE ---
Date and Time: 09/07/19 164 Subjective Assessment: She reports that she is feeling better. She did have some nausea last night and has been unable to be weaned off of the oxygen. She is eating breakfast this am. Objective Exam General Appearance: no apparent distress, other ( at bedside) Neurologic Exam: alert, cooperative, normal mood/affect Skin Exam: normal color, warm, dry Respiratory Exam: normal breath sounds, lungs clear, No crackles/rales, No rhonchi, No wheezing Cardiovascular Exam: regular rate/rhythm, normal heart sounds, No murmur, No friction rub, No gallop Gastrointestinal/Abdomen Exam: soft, normal bowel sounds, No tenderness, No distention, No mass Extremity Exam: other (no c/c/e) OBJECTIVE DATA Vital Signs: Vital Signs - 24 hr Temp Pulse Resp BP Pulse Ox 09/07/19 16:00 98.2 F 82 18 94/54 91 L 09/07/19 13:00 91 L 09/07/19 11:59 98.9 F 99 H 18 119/63 91 L 09/07/19 09:34 97 09/07/19 09:08 97 09/07/19 08:00 91 L 09/07/19 07:40 99.0 F 91 H 18 119/69 91 L 09/07/19 04:10 98.0 F 93 H 20 127/68 94 L 09/07/19 04:00 94 L 09/07/19 00:08 97.9 F 91 H 22 108/58 94 L 09/06/19 20:16 93 L 09/06/19 19:50 97.6 F 90 20 115/64 95 Oxygen-Last 24 hours O2 Percentage 2 Liters = 28% O2 Percentage 2 Liters = 28% Oxygen Flowrate (L/min)-RT 2 Oxygen Flowrate (L/min)-RT 2 Oxygen Flowrate (L/min)-RT 2 Pain Assessment - Last Documented Pain Intensity 10 Pain Scale Used [facility] Intake and Output: Intake & Output 09/05/19 09/06/19 09/07/19 09/08/19 06:59 06:59 06:59 06:59 Intake Total 874 4875 923 480 Output Total 500 8680 2550 Balance 984 -5247 -5339 200 Weight 71.4 kg 72.4 kg 72.6 kg Lab Results: Lab Results-Last 24 Hours 09/07/19 09/07/19 Range/Units 04:20 04:20 WBC 10.6 H (4.0-10.5) K/mm3 RBC 3.97 L (4.1-5.4) M/mm3 Hgb 11.3 L (12.0-16.0) gm/dl Hct 34.8 L (35-47) % MCV 87.7 (78-100) fl MCH 28.4 (26-32) pg MCHC 32.5 (32-36) g/dl RDW 15.0 H (11.5-14.0) % Plt Count 216 (150-450) K/mm3 MPV 10.7 H (6-9.5) fl Gran % 76.8 H (36.0-66.0) % Eos # (Auto) 0.17 (0-0.5) Absolute Lymphs (auto) 1.37 (1.0-4.6) Absolute Monos (auto) 0.89 (0.0-1.3) Lymphocytes % 12.9 L (24.0-44.0) % Monocytes % 8.4 (0.0-12.0) % Eosinophils % 1.6 (0.00-5.0) % Basophils % 0.3 (0.0-0.4) % Absolute Granulocytes 8.16 H (1.4-6.9) Basophils # 0.03 (0-0.4) Sodium 140 (137-145) mmol/L Potassium 3.5 (3.5-5.1) mmol/L Chloride 101 (98-107) mmol/L Carbon Dioxide 29 (22-30) mmol/L Anion Gap 13.2 (5-15) MEQ/L BUN 28 H (7-17) mg/dL Creatinine 1.24 H (0.52-1.04) mg/dL Estimated GFR 44.9 ML/MIN Glucose 109 H (74-106) mg/dL Calcium 10.2 (8.4-10.2) mg/dL Total Bilirubin 0.50 (0.2-1.3) mg/dL AST 102 H (14-36) U/L ALT 140 H (0-35) U/L Alkaline Phosphatase 82 (38-126) U/L Serum Total Protein 7.3 (6.3-8.2) g/dL Albumin 3.9 (3.5-5.0) g/dL Radiology Exams: Radiology Procedures Category Date Time Status CAROTID BILATERAL [US] Routine Exams 09/08/19 13:40 Ordered ECHO W/2D AND DOPPLER [US] Routine Exams 09/06/19 14:23 Taken KIDNEY [US] Routine Exams 09/06/19 14:23 Completed Multi-Disciplinary Progress Notes: Multi-Disciplinary Progress Notes 09/07/19 14:10 Case Management Note by Denise Medellin CALLED TO INFORM DR WALKER PATIENT QUALIFIED FOR HOME OXYGEN. DR WALKER ORDERED A PULMONARY CONSULT, AND REPORT FINDINGS. IF DR YOUSSEF WAS UNABLE TO COME UNTIL LATER, THEN PATIENT OXYGENATION STATUS COULD BE EVALUATED TOMORROW BY DR WALKER FOR A FACE TO FACE FOR HOME OXYGEN GUIDELINES. Initialized on 09/07/19 14:10 - END OF NOTE 09/07/19 13:48 Case Management Note by Denise Medellin PT HAS QUALIFIED FOR HOME OXYGEN AT DISCHARGE DUE TO LOW SPO2 AT REST AND WITH ACTIVITY. PT HAS CHOSEN [facility] FOR OXYGEN SUPPLIER AT DISCHARGE. WILL UPDATE DR WALKER FOR FACE TO FACE AND DETAILED DISCHARGE NOTE WITH MEDICAL DX FOR NEED OF HOME O2. Initialized on 09/07/19 13:48 - END OF NOTE 09/07/19 12:08 Case Management Note by Virginia Wang PT CONTINUE WITH OXYGEN NEEDS. OXYGEN WAS WEANED AND PATIENTS O2 SATURATION WERE 85% ON RA, WITH O2 2LPM O2 SATS CAME UP TO 96%. PT MAY NEED QUALIFIED FOR HOME O2 CLOSER TO DISCHARGE. PT DENIES WANTING HOME HEALTHCARE AT DISCHARGE. PT MAY NEED WALKER OR AMBULATORY AIDE AT DISCHARGE WELL. NO FURTHER NEEDS NOTED. WILL CONTINUE TO FOLLOW CARE UNTIL D/C. Initialized on 09/07/19 12:08 - END OF NOTE 09/07/19 10:33 Respiratory Note by Radha Ibrahim Patient was placed on room air at 0934. At 0957, Spo2 at rest was 94%. Patient was then walked on room air and spo2 dropped to 86% after walking for 5 minutes. Patient then placed on 2L NC and walked again the same distance and Spo2 was 94-97%. Nurse notified that patient qualified for home oxygen. Initialized on 09/07/19 10:33 - END OF NOTE Assessment/Plan (1) Chest pain Current Visit: Yes Status: Acute Assessment & Plan: Ruled out for acute DC; Dr. Alford saw her and recommends outpatient stress test. Code(s): R07.9 - CHEST PAIN, UNSPECIFIED (2) Hypercalcemia Current Visit: Yes Status: Resolved Assessment & Plan: Resolved; Code(s): E83.52 - HYPERCALCEMIA (3) Hypertension Current Visit: Yes Status: Acute Assessment & Plan: Currently off of her multiple antihypertensives. Code(s): I10 - ESSENTIAL (PRIMARY) HYPERTENSION (4) Constipation Current Visit: Yes Status: Acute Code(s): K59.00 - CONSTIPATION, UNSPECIFIED (5) DVT prophylaxis Current Visit: Yes Status: Acute Code(s): Z29.9 - ENCOUNTER FOR PROPHYLACTIC MEASURES, UNSPECIFIED (6) Hypothyroidism Current Visit: Yes Status: Acute Code(s): E03.9 - HYPOTHYROIDISM, UNSPECIFIED (7) Renal insufficiency Current Visit: Yes Status: Acute Assessment & Plan: Dr. Jose saw her during hospital stay and plans for outpatient follow up. we need to clarify if he wants her to go home on the medications he started. (8) Hypoxia Current Visit: Yes Status: Acute Assessment & Plan: Check to see if she qualifies for home oxygen. Code(s): R09.02 - HYPOXEMIA
[2019-09-08 04:53] LABS: Absolute Neutrophil Ct (ANC) 8.92 (1.4-6.9); BASOPHIL % 0.2 % (0.0-0.4); Basophil (Absolute #) 0.03 (0-0.4); Eosinophil (Absolute #) 0.38 (0-0.5); Hematocrit 39.7 % (35-47); Hemoglobin 12.7 gm/dl (12.0-16.0); Lymphocyte (Absolute #) 2.22 (1.0-4.6); Lymphocytes % 17.8 % (24.0-44.0); Mean Corpuscular Hemoglobin 28.2 pg (26-32); Mean Platelet Volume 10.8 fl (6-9.5); Monocyte (Absolute #) 0.95 (0.0-1.3); Monocytes % 7.6 % (0.0-12.0); Neutrophil % 71.4 % (36.0-66.0); Platelet Count 258 K/mm3 (150-450); Red Blood Count 4.51 M/mm3 (4.1-5.4); Red Cell Distribution Width 15.3 % (11.5-14.0); White Blood Count 12.5 K/mm3 (4.0-10.5)
[2019-09-08 04:59] LABS: ALBUMIN 4.4 g/dL (3.5-5.0); ANION GAP 14.6 MEQ/L (5-15); BILIRUBIN,TOTAL 0.5 mg/dL (0.2-1.3); Calcium 10.2 mg/dL (8.4-10.2); Creatinine 1 1.33 mg/dL (0.52-1.04); Potassium 3.6 mmol/L (3.5-5.1); Total Protein 8.1 g/dL (6.3-8.2)
--- NOTE | 2019-09-08 08:15 | CONS ---
CONSULT DATE: 09/07/2019 HISTORY: Carol Rivera is a 74 year-old woman, former smoker, who has been hospitalized with complaints of chest pain. She is currently being evaluated for cardiac etiology. The patient had a chest CT that showed calcified lymph nodes with atelectasis of lingula. The patient is a former smoker. She has fairly preserved lung capacity and able to ambulate fairly well, according to family. She denies prior history of pneumonia. She quit smoking about eight years ago after having carotid endarterectomy. The patient's current labs also show renal insufficiency and she is being evaluated for the same. PAST MEDICAL HISTORY: The patient has history of hypertension, electrolyte imbalance and hypothyroidism. PAST SURGICAL HISTORY: No recent surgery. PERSONAL AND SOCIAL HISTORY: She is a former smoker as reported above, lives with . MEDICATIONS: Home and current medications are reviewed. ALLERGIES: NKDA. LABORATORY DATA AND TESTS: Sodium 140, potassium 3.5, chloride 101, bicarb 29, albumin 3.9, glucose 109, BUN 28, creatinine 1.4. White count 10.6, hemoglobin 11.3, hematocrit 34.8, PLT 216,000. PTH 757. Urine shows Streptococcus Agalactiae sensitive to levofloxacin, linezolid and Vancomycin. CT chest was reviewed. ASSESSMENT: This is a 74 year old woman admitted with: 1) Chest pain. She is currently noted to have abnormal chest CT with atelectasis of upper lobe which appears to be compressive from enlarged left hilar lymph nodes with calcification. Being evaluated by Dr. Mendoza. 2) Lingular nodule. Again appears to have calcified likely granuloma. 3) Likely underlying chronic obstructive pulmonary disease. 4) Nocturnal hypoxemia causing leg swelling. 5) Renal insufficiency being evaluated by Dr. Jose. RECOMMENDATIONS: 1) The patient is doing well from pulmonary standpoint. 2) I advised to follow up with me in a week upon discharge. 3) Will set up home oxygen on discharge. 4) Will obtain pulmonary function test upon discharge. 5) Will follow up lung CT for abnormality. Need for bronchoscopy as outpatient? Further recommendations pending clinical improvement. I discussed the plan of care with patient and . Thank you, Dr. Leahy, for allowing me to participate in the care of this patient.
[2019-09-08] MEDS: Sodium Chloride 0.9% 10 ML FLUSH Syringe IV SCH (08:18)
[2019-09-08] MEDS: TYLENOL 325 MG PO PRN (08:20)
[2019-09-08] MEDS: ROCEPHIN 1 Gm-D5w 50 ml Bag** 1 G/50 ML IVPB IV SCH (09:38)
[2019-09-08] MEDS: ECOTRIN 81 MG PO SCH (09:38)
[2019-09-08] MEDS: NON-FORMULARY ITEM PO SCH (09:38)
[2019-09-08] MEDS: ENOXAPARIN SODIUM SQ SCH (09:38)
[2019-09-08] MEDS: Lasix 40 MG PO SCH (09:38)
[2019-09-08] MEDS: SYNTHROID 125 MCG PO SCH (09:38)
[2019-09-08] MEDS: Colace 100 MG PO SCH (09:38)
[2019-09-08] MEDS ORDERED: Neurontin 100 MG PO ONE (11:00)
[2019-09-08 11:39] VITALS: BP 113/61; PULSE 103; O2SAT 94
--- NOTE | 2019-09-08 11:49 | PCM.DCORD ---
- Discharge Discharge Date: 09/08/19 Disposition: Home, Self-Care Condition: Fair Prescriptions: New Cefdinir 300 mg PO BID #10 capsule Gabapentin 100 mg PO BID #60 capsule Acetaminophen 325 mg [Tylenol 325 mg] 650 mg PO Q4H PRN PRN tablet PRN Reason: Pain And/Or Fever Continue Levothyroxine Sodium 100 Mcg [Synthroid 100 Mcg] 125 mcg PO DAILY Aspirin EC 81 mg [Ecotrin 81 mg] 81 mg PO DAILY Discontinued Metoprolol Tartrate 50 mg [Lopressor 50 MG] 100 mg PO BID Losartan Potassium [Cozaar 100Mg Tablet] 100 mg PO DAILY Potassium Chloride 10 Meq Tab* [Klor Con 10 MEQ] 10 meq PO BID #60 tab Triamterene/Hydrochlorothiazid [Maxzide 37.5 mg-25 mg Tablet] 1 tab PO DAILY Atorvastatin Calcium 80 mg PO HS Amlodipine Besylate [Norvasc] 10 mg PO DAILY Additional Instructions: Patient has a scheduled Faina-scan Cardiolyte Stress Test at [facility] on August at 7 a.m. Nothing by Mouth after midnight the night before test. NO caffeine 12 hours prior to stress test. Home oxygen 2L by nasal canula. See detailed order. Follow up with: SINGH YOUSSEF [ACTIVE STAFF] - 1 Week JEFF FUENTES [ACTIVE STAFF] - 09/21/19 3:15 pm (at [facility] for stress test results) MERRITT LEBLANC [CONSULTING PHYSICIAN] - 09/19/19 3:00 pm (keep previous appt at [facility] CEM WALKER [Primary Care Provider] - 09/14/19 11:00 am
--- NOTE | 2019-09-08 12:22 | XRAY ---
Indication: Chest pain. Two-dimensional sonogram and color Doppler imaging of the carotid arteries of the neck performed. Comparison: November 03, 2015. Examination of the right carotid circulation again demonstrates mild calcified plaquing at the level of bulb extending into the origin/proximal internal carotid artery. PSV of the CCA is 74 cm/s. PSV of the ICA is 96 cm/s. ICA/CCA ratio is 1.3. Normal antegrade vertebral artery flow. Examination of the left carotid circulation again demonstrates minimal heterogeneous plaquing of the level of the bulb extending into origin of internal carotid artery. PSV of the CCA is 63 cm/s. PSV of the ICA is 70 cm/s. ICA/CCA ratio is 1.1. Normal antegrade vertebral artery flow. Impression: Stable minimal/mild arteriosclerotic plaquing bilaterally. Velocity measurements and ratios again negative for hemodynamically significant flow-limiting stenosis.
[2019-09-08 12:37] LABS: HEPATITIS A IGM Non Reactive (Non Reactive); HEPATITIS B VIRUS CORE TOT AB Non Reactive (Non Reactive); HEPATITIS C VIRUS ANTIBODY Non Reactive (Non Reactive); Hepatitis B Surface Ab.Quant. <3.50 mIU/mL (0.00-8.49); Hepatitis B Surface Antigen Non Reactive (Non Reactive)
--- NOTE | 2019-09-08 12:49 | DS ---
DISCHARGE DIAGNOSES: 1) CHEST PAIN. 2) HYPERCALCEMIA. 3) HYPERTENSION. 4) CONSTIPATION. 5) HYPOTHYROIDISM. 6) RENAL INSUFFICIENCY. 7) CHRONIC OBSTRUCTIVE PULMONARY DISEASE WITH HYPOXIA. 8) URINARY TRACT INFECTION. DISCHARGE PHYSICAL EXAMINATION: VITALS: Temperature current 98F, heart rate 89, respiratory rate 16, blood pressure 111/68, discharge weight 72 kg. Oxygen saturation 94% on 2 liters nasal cannula. GENERAL: The patient is a pleasant lady sitting up in bed using oxygen by nasal cannula in no acute distress. Her is at the bedside. CVS: She has a regular rate and rhythm. No murmurs, gallops or rubs. CHEST: Clear to auscultation bilaterally. No crackles or wheezes. ABDOMEN: Soft, nontender, nondistended with normal bowel sounds. EXTREMITIES: No clubbing, cyanosis or edema. SKIN: Warm, dry and intact. HOSPITAL COURSE: 1) CHEST PAIN: She ruled out for acute myocardial infarction. Dr. Mendoza saw her and recommended carotid Doppler's which she had done today but no reading yet and an outpatient stress test which has been ordered. She will continue on aspirin 81 mg daily. 2) HYPERCALCEMIA: This resolved during her hospitalization. Her PTH, vitamin D and ionized calcium were all normal. 3) HYPERTENSION: She is currently off of all her antihypertensive medications and her blood pressure is stable. 4) CONSTIPATION: She had stool softeners ordered as needed. 5) HYPOTHYROIDISM: She was continued on her current dose of levothyroxine and her TSH was normal. 6) RENAL INSUFFICIENCY: Dr. Jose saw her during her hospital stay and plans for outpatient follow up. He is clarifying if he wants her to be on sodium bicarbonate and Lasix at the time of discharge. 7) CHRONIC OBSTRUCTIVE PULMONARY DISEASE WITH HYPOXIA: She qualified for home oxygen and this order was signed. She will need oxygen 24 hours a day including portable oxygen for when she ambulates. 8) URINARY TRACT INFECTION: She had a urine culture that grew Streptococcus Agalactiae. She was given two doses of ceftriaxone here in the hospital and finishing a five day course of Cefdinir 300 mg p.o. b.i.d. 9) MYALGIA AND NUMBNESS: She continued to complain of this during her hospitalization toward the end and beginning. Her TSH, vitamin B12, CPK were all normal. She may have some neuropathy. I have started her on gabapentin 100 mg p.o. b.i.d. on the day of her discharge and continued this as an outpatient. DISCHARGE MEDICATIONS: Please see the discharge order, plus see further orders that Dr. Jose wanted. FOLLOW UP: She is to follow up with myself, Dr. Mendoza, Dr. Jose and Dr. Carbone. She has an outpatient stress test scheduled. DISPOSITION: The patient was discharged to home in fair condition.
[2019-09-08 16:50] LABS: PROTEIN BETA 2 0.39 g/dL (0.18-0.50); Protein Beta 1 0.34 g/dL (0.35-0.66)
[2019-09-08 17:24] LABS: Monoclonal Protein ID Interp See Result Note:
[2019-09-08] MEDS ORDERED: Neurontin 100 MG PO SCH (22:00)
== END 2019-09-08 14:55 | disposition home or self-care (01) | DRG 313 ==
LOC: ED 10:58 → MED SURG 13:10 → OBSVTOIN 09-05 08:51
PROVIDERS: ADMIT Internal Medicine; ATTEND Internal Medicine
DX: R07.9 Chest pain, unspecified (principal); E87.2 Acidosis; N39.0 Urinary tract infection, site not specified; E78.5 Hyperlipidemia, unspecified; I10 Essential (primary) hypertension; E03.9 Hypothyroidism, unspecified; Z85.3 Personal history of malignant neoplasm of breast; I12.9 Hypertensive chronic kidney disease with stage 1 through stage 4 chronic kidney disease, or unspecified chronic kidney disease; N18.3 Chronic kidney disease, stage 3 (moderate); R09.02 Hypoxemia; E87.5 Hyperkalemia; D64.9 Anemia, unspecified; M79.604 Pain in right leg; E83.52 Hypercalcemia; K59.00 Constipation, unspecified; J44.9 Chronic obstructive pulmonary disease, unspecified; M79.10 Myalgia, unspecified site; R20.0 Anesthesia of skin; R91.8 Other nonspecific abnormal finding of lung field
CPT/HCPCS: 36000; 36415; 71045; 71250; 76770; 80053; 80061; 80074; 81001; 82150; 82306; 82330; 82550; 82570; 82607; 83690; 83721; 83735; 83880; 83970; 84156; 84165; 84443; 84484; 85025; 85379; 85610; 85730; 86334; 87077; 87086; 87186; 93005; 93268; 93306; 93880; 94760; 96374; 99285; G0378; 90662; J0696; J1650; J1940; J2270; J2405; J2550; J3475; A9270-GY

== ENCOUNTER 2020-09-24 11:43 | Emergency (ER) | payer MEDICARE ==
--- NOTE | 2020-09-24 11:53 | ERPHSYRPT ---
- History of Present Illness Time Seen by Provider: 09/24/20 11:52 Source: patient Exam Limitations: no limitations Physician History: This is a 75-year-old white female with a history of hypothyroidism, hypertension, COPD, TIAs and renal insufficiency who presents with cough, shortness of breath and myalgias arthralgias since 12 September. She has not been tested for COVID-19 in the past. Patient does wear 3 L of oxygen at home on a daily basis. Her symptoms have been getting worse. Denies chest pain and denies abdominal pain. She is had no nausea vomiting or diarrhea. Timing/Duration: week(s) Activities at Onset: none Severity of Dyspnea-Max: moderate Severity of Dyspnea-Current: moderate Possible Cause: occasional episodes Modifying Factors: Improves With: coughing, exertion (Worsens) Associated Symptoms: cough, weakness, No chest pain/discomfort Allergies/Adverse Reactions: No Known Drug Allergies Allergy (Verified 09/24/20 12:19) Home Medications: Aspirin EC 81 mg [Ecotrin 81 mg] 81 mg PO DAILY 11/02/12 [History] Levothyroxine Sodium 100 Mcg [Synthroid 100 Mcg] 125 mcg PO DAILY 11/02/12 [History] Fluticasone/Umeclidin/Vilanter [Trelegy Ellipta 100-62.5-25] 1 ea DAILY 09/24/20 [History] Furosemide 1 ea DAILY 09/24/20 [History] hydroCHLOROthiazide [Hydrochlorothiazide] 1 ea DAILY 09/24/20 [History] lisinopriL [Lisinopril] 1 ea DAILY 09/24/20 [History] Hx Tetanus, Diphtheria Vaccination/Date Given: Yes Hx Influenza Vaccination/Date Given: No Hx Pneumococcal Vaccination/Date Given: No Travel Risk - International Travel Have you traveled outside of the country in past 3 weeks: No - Coronavirus Screening Are you exhibiting any of the following symptoms?: No Close contact with a COVID-19 positive Pt in past 14-21 Days: No - Review of Systems Constitutional: Weakness Eyes: No Symptoms Ears, Nose, & Throat: No Symptoms Respiratory: Cough, Dyspnea Cardiac: No Symptoms Abdominal/Gastrointestinal: No Symptoms Genitourinary Symptoms: No Symptoms Musculoskeletal: No Symptoms Skin: No Symptoms Neurological: No Symptoms Psychological: No Symptoms Endocrine: No Symptoms Hematologic/Lymphatic: No Symptoms Immunological/Allergic: No Symptoms All Other Systems: Reviewed and Negative - Past Medical History Pertinent Past Medical History: Yes Neurological History: No Pertinent History ENT History: No Pertinent History Cardiac History: High Cholesterol, Hypertension Respiratory History: No Pertinent History Endocrine Medical History: Hypothyroidism Musculoskeletal History: No Pertinent History GI Medical History: No Pertinent History History: No Pertinent History Psycho-Social History: No Pertinent History Female Reproductive Disorders: No Pertinent History - Past Surgical History Past Surgical History: Yes Neuro Surgical History: No Pertinent History Cardiac: Other Respiratory: No Pertinent History Gastrointestinal: No Pertinent History Genitourinary: No Pertinent History Musculoskeletal: No Pertinent History Female Surgical History: Hysterectomy Other Surgical History: bilateral carotid artery surgery 2013; hysterectomy 2007 - Social History Smoking Status: Former smoker How long have you smoked: 60 yrs Exposure to second hand smoke: Yes Drug Use: none Patient Lives Alone: No - Nursing Vital Signs Nursing Vital Signs: Initial Vital Signs O2 Sat by Pulse Oximetry 93 L 09/24/20 12:12 Pain Scale Pain Intensity 3 - Physical Exam General Appearance: mild distress, alert, anxiety, obese Eye Exam: PERRL/EOMI, eyes nml inspection Ears, Nose, Throat Exam: hearing grossly normal, normal ENT inspection Neck Exam: normal inspection, non-tender, supple, full range of motion Respiratory Exam: normal breath sounds, lungs clear, respiratory distress (Mild), airway intact, No chest tenderness Cardiovascular/Chest Exam: normal heart sounds, regular rate/rhythm, normal peripheral pulses Abdominal/Gastrointestinal Exam: soft, normal bowel sounds, tenderness Rectal Exam: not done Extremity Exam: non-tender, normal range of motion, normal inspection Neurologic Exam: alert, oriented x 3, cooperative, onsite health coach II-XII nml as tested, normal mood/affect, nml cerebellar function, nml station & gait, sensation nml Skin Exam: normal color, warm, dry Lymphatic Exam: No adenopathy SpO2 Interpretation: normal O2 Delivery: Room Air - Course Nursing assessment & vital signs reviewed: Yes EKG Interpreted by Me: RATE (93), Sinus Rhythm, NORMAL AXIS, NORMAL INTERVALS, NORMAL QRS, Other (No acute ischemic changes. When compared to EKG dated 09/05/2019 there are no changes) Ordered Tests: Active Orders 24 hr Category Date Time Status Security Sales Consultant STAT Care 09/24/20 12:04 Active EKG-ER Only STAT Care 09/24/20 12:03 Active IV Insertion STAT Care 09/24/20 12:03 Active Isolation, Initiate & Maintain STAT Care 09/24/20 12:03 Active Pulse Oximetry (ED) STAT Care 09/24/20 12:03 Active CHEST 1 VIEW (PORTABLE) Stat Exams 09/24/20 12:04 Completed BLOOD CULTURE Stat Lab 09/24/20 12:00 Received CBC W DIFF Stat Lab 09/24/20 12:30 Results CMP Stat Lab 09/24/20 12:30 Completed D-DIMER QUANTITATIVE Stat Lab 09/24/20 12:30 Completed Ferritin Stat Lab 09/24/20 12:30 Completed INFLUENZA A+B JACQUE Stat Lab 09/24/20 12:30 Completed LDH-LACTATE DEHYDROGENASE Stat Lab 09/24/20 12:30 Completed Lactic Acid Stat Lab 09/24/20 12:10 Completed Lactic Acid Stat Lab 09/24/20 14:16 Received Manual Differential NC Stat Lab 09/24/20 12:30 Results [place] Screen Stat Lab 09/24/20 12:30 Completed Pathologist Review Stat Lab 09/24/20 12:30 Results TROPONIN Q3H Lab 09/24/20 12:15 Completed TROPONIN Q3H Lab 09/24/20 15:15 Ordered TROPONIN Q3H Lab 09/24/20 18:15 Ordered TROPONIN Q3H Lab 09/24/20 21:15 Ordered TROPONIN Q3H Lab 09/25/20 00:15 Ordered UA W/RFX UR CULTURE Stat Lab 09/24/20 12:39 Ordered Medication Summary Generic Name Dose Route Start Last Admin Trade Name Freq PRN Reason Stop Dose Admin Sodium Chloride 1,000 mls @ 100 mls/hr 09/24/20 12:15 09/24/20 12:29 Sodium Chloride 0.9% 1000 Ml IV 10/24/20 12:14 100 mls/hr .Q10H ALTHEA Administration Sodium Chloride 500 mls @ 500 mls/hr 09/24/20 14:40 Sodium Chloride 0.9% 500 Ml IV 09/24/20 15:39 .Q1H ONE Meropenem 500 mg/ Sodium 100 mls @ 200 mls/hr 09/24/20 14:41 Chloride IV 09/24/20 15:10 STAT ONE Lab/Rad Data: Laboratory Result Diagrams 09/24/20 12:30 09/24/20 12:30 Laboratory Results 11/09/24/20 09/24/20 Range/Units 12:30 12:30 12:30 WBC (4.0-10.5) K/mm3 RBC (4.1-5.4) M/mm3 Hgb (12.0-16.0) gm/dl Hct (35-47) % MCV (78-100) fl MCH (26-32) pg MCHC (32-36) g/dl RDW (11.5-14.0) % Plt Count (150-450) K/mm3 MPV (7.5-11.0) fl Segmented Neutrophils (36.0-66.0) % Band Neutrophils (0.0-2.0) % Lymphocytes (Manual) (24-44) % Monocytes (Manual) (0.0-12.0) % Toxic Granulation Platelet Estimate (NORMAL) RBC Morphology Anisocytosis Smear Path Review D-Dimer 6338 H* (215-500) ng/mL Sodium (137-145) mmol/L Potassium (3.5-5.1) mmol/L Chloride (98-107) mmol/L Carbon Dioxide (22-30) mmol/L Anion Gap (5-15) MEQ/L BUN (7-17) mg/dL Creatinine (0.52-1.04) mg/dL Estimated GFR ML/MIN Glucose (74-106) mg/dL Lactic Acid (0.4-2.0) Calcium (8.4-10.2) mg/dL Ferritin 972 H (11.1-264) ng/mL Total Bilirubin (0.2-1.3) mg/dL AST (14-36) U/L ALT (0-35) U/L Alkaline Phosphatase (38-126) U/L Lactate Dehydrogenase (120-246) U/L Troponin I (0.000-0.034) ng/mL Serum Total Protein (6.3-8.2) g/dL Albumin (3.5-5.0) g/dL Monoscreen NEGATIVE (Negative) Influenza Type A Ag (NEGATIVE) Influenza Type B Ag (NEGATIVE) Group A Strep Antibody (NEGATIVE) 09/24/20 09/24/20 09/24/20 Range/Units 12:30 12:30 12:30 WBC 28.2 H* (4.0-10.5) K/mm3 RBC 4.11 (4.1-5.4) M/mm3 Hgb 11.3 L (12.0-16.0) gm/dl Hct 36.7 (35-47) % MCV 89.3 (78-100) fl MCH 27.5 (26-32) pg MCHC 30.8 L (32-36) g/dl RDW 14.2 H (11.5-14.0) % Plt Count 642 H (150-450) K/mm3 MPV 10.6 (7.5-11.0) fl Segmented Neutrophils 86 H (36.0-66.0) % Band Neutrophils 1 (0.0-2.0) % Lymphocytes (Manual) 10 L (24-44) % Monocytes (Manual) 3 (0.0-12.0) % Toxic Granulation 1+ Platelet Estimate INCREASED (NORMAL) RBC Morphology ABNORMAL Anisocytosis 1+ Smear Path Review Pending D-Dimer (215-500) ng/mL Sodium 135 L (137-145) mmol/L Potassium 4.6 (3.5-5.1) mmol/L Chloride 99 (98-107) mmol/L Carbon Dioxide 21 L (22-30) mmol/L Anion Gap 19.1 H (5-15) MEQ/L BUN 68 H (7-17) mg/dL Creatinine 2.27 H (0.52-1.04) mg/dL Estimated GFR 22.3 ML/MIN Glucose 128 H (74-106) mg/dL Lactic Acid (0.4-2.0) Calcium 10.2 (8.4-10.2) mg/dL Ferritin (11.1-264) ng/mL Total Bilirubin 0.70 (0.2-1.3) mg/dL AST 44 H (14-36) U/L ALT 27 (0-35) U/L Alkaline Phosphatase 177 H (38-126) U/L Lactate Dehydrogenase 225 (120-246) U/L Troponin I (0.000-0.034) ng/mL Serum Total Protein 7.0 (6.3-8.2) g/dL Albumin 3.6 (3.5-5.0) g/dL Monoscreen (Negative) Influenza Type A Ag NEGATIVE (NEGATIVE) Influenza Type B Ag NEGATIVE (NEGATIVE) Group A Strep Antibody (NEGATIVE) 09/24/20 09/24/20 09/24/20 Range/Units 12:15 12:10 12:03 WBC (4.0-10.5) K/mm3 RBC (4.1-5.4) M/mm3 Hgb (12.0-16.0) gm/dl Hct (35-47) % MCV (78-100) fl MCH (26-32) pg MCHC (32-36) g/dl RDW (11.5-14.0) % Plt Count (150-450) K/mm3 MPV (7.5-11.0) fl Segmented Neutrophils (36.0-66.0) % Band Neutrophils (0.0-2.0) % Lymphocytes (Manual) (24-44) % Monocytes (Manual) (0.0-12.0) % Toxic Granulation Platelet Estimate (NORMAL) RBC Morphology Anisocytosis Smear Path Review D-Dimer (215-500) ng/mL Sodium (137-145) mmol/L Potassium (3.5-5.1) mmol/L Chloride (98-107) mmol/L Carbon Dioxide (22-30) mmol/L Anion Gap (5-15) MEQ/L BUN (7-17) mg/dL Creatinine (0.52-1.04) mg/dL Estimated GFR ML/MIN Glucose (74-106) mg/dL Lactic Acid 2.2 H (0.4-2.0) Calcium (8.4-10.2) mg/dL Ferritin (11.1-264) ng/mL Total Bilirubin (0.2-1.3) mg/dL AST (14-36) U/L ALT (0-35) U/L Alkaline Phosphatase (38-126) U/L Lactate Dehydrogenase (120-246) U/L Troponin I 0.021 (0.000-0.034) ng/mL Serum Total Protein (6.3-8.2) g/dL Albumin (3.5-5.0) g/dL Monoscreen (Negative) Influenza Type A Ag (NEGATIVE) Influenza Type B Ag (NEGATIVE) Group A Strep Antibody NOT DETECTED (NEGATIVE) - Progress Progress: improved, re-examined Air Movement: fair Progress Note: 09/24/20 15:02 Chest x-ray showed new moderate bibasilar effusions/atelectasis left greater than right obscuring the cardiac silhouette. Medical decision making: I spoke with Dr. Gage at [facility]. He is emergency room physician there. I reviewed the patient history, condition, laboratory work-up, EKG findings, chest x-ray results. He was hesitant initially to accept the patient because he was also not sure his they could performed a VQ scan which I think this patient requires. I have told him that I did not feel that are hospitalist would accept this pa tient here because the patient is more ill than the typical patient that might be positive for Covid in that her white count is 28,000 her D-dimer is 6338 and she has acute renal failure as well. I spoke with Dr. Holguin who is covering for Dr. Yeboah and he agrees that the patient is a candidate to be transferred and would likely be better served at a facility that has a licensed massage therapist and green hide inspector in the event of her condition worsening. I contacted Dr. Gage again at [facility] and he now accepts the patient to their facility. I spoke with the patient and she is fine with being transferred to [facility]. Blood Culture(s) Obtained: Yes Antibiotics given: Yes Counseled pt/family regarding: lab results, diagnosis, rad results - Departure Clinical Impression: Acute renal failure, Leukocytosis, Shortness of breath, Elevated d-dimer Condition: Fair Critical Care Time: No Referrals: MIKE YEBOAH [Primary Care Provider] -
[2020-09-24] MEDS ORDERED: Sodium Chloride 0.9% 1000 ML 1,000 ML IV SCH (12:15)
[2020-09-24] MEDS ORDERED: Sodium Chloride 0.9% 1000 ML 1,000 ML ONE (12:27)
--- NOTE | 2020-09-24 12:36 | XRAY ---
Indication: Cough, short of breath, and weakness. Comparison: September 04, 2019. Portable chest demonstrates new moderate bibasilar effusions/atelectasis left greater than right now obscuring cardiac silhouette. Stable chunky left hilar calcified node. Bony thorax intact again with osteopenia and degenerative changes.
[2020-09-24 12:47] LABS: Hematocrit 36.7 % (35-47); Hemoglobin 11.3 gm/dl (12.0-16.0); Mean Cell Volume 89.3 fl (78-100); Mean Corpuscular Hemoglobin 27.5 pg (26-32); Mean Corpuscular Hgb Concent. 30.8 g/dl (32-36); Mean Platelet Volume 10.6 fl (7.5-11.0); Platelet Count 642 K/mm3 (150-450); Red Blood Count 4.11 M/mm3 (4.1-5.4); Red Cell Distribution Width 14.2 % (11.5-14.0)
[2020-09-24 12:52] LABS: White Blood Count 28.2 K/mm3 (4.0-10.5)
[2020-09-24 13:06] LABS: ALBUMIN 3.6 g/dL (3.5-5.0); ANION GAP 19.1 MEQ/L (5-15); BILIRUBIN,TOTAL 0.7 mg/dL (0.2-1.3); Calcium 10.2 mg/dL (8.4-10.2); Creatinine 1 2.27 mg/dL (0.52-1.04); EST GLOMERULAR FILTRATION RATE 22.3 ML/MIN; Potassium 4.6 mmol/L (3.5-5.1)
[2020-09-24 13:31] LABS: INFLUENZA A NEGATIVE (NEGATIVE); INFLUENZA B NEGATIVE (NEGATIVE)
[2020-09-24 13:49] LABS: ANISOCYTOSIS 1+; BAND 1 % (0.0-2.0); Lymphocytes 10 % (24-44); Monocyte 3 % (0.0-12.0); Neutrophils 86 % (36.0-66.0); Platelet Estimate INCREASED (NORMAL); Total Cells Counted 100; Toxic Granulation 1+
[2020-09-24] MEDS ORDERED: Sodium Chloride 0.9% 500 ML 500 ML IV ONE (14:40)
[2020-09-24] MEDS ORDERED: MERREM 500MG 500 MG in Sodium Chloride 100ML MINI-BAG PLUS 100 ML IV ONE (14:41)
[2020-09-24] MEDS ORDERED: MERREM 500MG IV ONE (15:25)
[2020-09-24] MEDS ORDERED: Sodium Chloride 100ML MINI-BAG PLUS 100 ML IV ONE ×2 (15:28→15:29)
[2020-09-24 16:26] VITALS: BP 124/78; PULSE 100; O2SAT 94
== END 2020-09-24 16:00 | disposition short-term general hospital (02) ==
LOC: ED 11:43
DX: N17.9 Acute kidney failure, unspecified (principal); D72.829 Elevated white blood cell count, unspecified; R06.02 Shortness of breath; R79.89 Other specified abnormal findings of blood chemistry; I10 Essential (primary) hypertension; E03.9 Hypothyroidism, unspecified; J44.9 Chronic obstructive pulmonary disease, unspecified; Z86.73 Personal history of transient ischemic attack (TIA), and cerebral infarction without residual deficits; M79.10 Myalgia, unspecified site; Z99.81 Dependence on supplemental oxygen; Z79.899 Other long term (current) drug therapy
CPT/HCPCS: 36000; 36415; 71045; 80053; 82728; 83605; 83615; 84484; 85025; 85379; 86308; 87040; 87400; 87651; 93005; 93041; 94760; 96360; 96361; 96365; 99285

== ENCOUNTER 2024-08-22 17:00 | Inpatient (IN) | payer MEDICARE, OTHER ==
[2024-08-22] MEDS ORDERED: DUONEB 0.5-3 MG/3 ml Neb IH ONE ×2 (17:28→17:42)
[2024-08-22] MEDS: DUONEB 0.5-3 MG/3 ml Neb IH ONE ×3 (17:33→17:42)
[2024-08-22] MEDS ORDERED: Sterile H2O 10 ml IJ ONE (17:45)
[2024-08-22] MEDS ORDERED: solu-MEDROL ONE (17:46)
[2024-08-22] MEDS ORDERED: ROCEPHIN 1 GM / 100 ML NaCl 1 GM/100 ML IVPB IV ONE (17:46)
[2024-08-22] MEDS: solu-MEDROL 125 MG, Sterile H2O 10 ml 2 ML IV ONE (17:49)
[2024-08-22] MEDS: ROCEPHIN 1 GM / 100 ML NaCl 1 GM/100 ML IVPB IV ONE (17:50)
[2024-08-22 17:54] LABS: Absolute Neutrophil Ct (ANC) 13.03 x10^3/uL (1.56-6.13); BASOPHIL % 0.3 % (0.1-1.2); Basophil (Absolute #) 0.05 x10^3/uL (0.01-0.08); Eosinophil % 0.4 % (0.7-5.8); Eosinophil (Absolute #) 0.06 x10^3/uL (0.04-0.36); Hematocrit 38.5 % (34.1-44.9); Hemoglobin 11.7 g/dL (11.2-15.7); IMMATURE GRAN % 0.7 % (0.001-0.429); Lymphocytes % 7.9 % (19.3-51.7); Mean Cell Volume 94.6 fL (79.4-94.8); Mean Corpuscular Hemoglobin 28.7 pg (25.6-32.2); Mean Corpuscular Hgb Concent. 30.4 g/dL (32.2-35.5); Mean Platelet Volume 10.4 fL (9.4-12.3); Monocyte (Absolute #) 0.72 x10^3/uL (0.24-0.86); Monocytes % 4.7 % (4.7-12.5); Platelet Count 224 x10^3/uL (182-369); Red Blood Count 4.07 x10^6/uL (3.93-5.22); Red Cell Distribution Width 13.6 % (11.7-14.4); White Blood Count 15.2 x10^3/uL (3.98-10.04)
[2024-08-22 18:08] LABS: ALBUMIN 3.9 g/dL (3.5-5.0); ANION GAP 11.4 MEQ/L (5-15); BILIRUBIN,TOTAL 0.7 mg/dL (0.2-1.3); Calcium 9.4 mg/dL (8.4-10.2); Creatinine 1 1.22 mg/dL (0.52-1.04); EST GLOMERULAR FILTRATION RATE 45.1 ML/MIN; MAGNESIUM 1.6 mg/dL (1.6-2.3); Potassium 5.3 mmol/L (3.5-5.1); Total Protein 6.6 g/dL (6.3-8.2)
[2024-08-22] MEDS ORDERED: Zithromax 500 MG/ 250 ML NaCl Premix 500 MG/250 ML IVPB IV ONE (18:24)
[2024-08-22] MEDS: Zithromax 500 MG/ 250 ML NaCl Premix 500 MG/250 ML IVPB IV STA (18:25)
[2024-08-22 18:30] LABS: INFLUENZA A NEGATIVE (NEGATIVE); INFLUENZA B NEGATIVE (NEGATIVE); RESPIRATORY SYNCTIAL VIRUS NEGATIVE (NEGATIVE); SARS-CoV-2 Xpert Express NEGATIVE (NEGATIVE)
--- NOTE | 2024-08-22 18:50 | ERPHSYRPT ---
- History of Present Illness Time Seen by Provider: 08/22/24 17:30 Source: patient Exam Limitations: no limitations Patient Subjective Stated Complaint: pt here for increase sob for a month now,started coughing up blood yesterday,no fever. Triage Nursing Assessment: pt alert, arrived per wc, moderate distress, resp sob, skin w/d/p no edema noted, chest with coarse breathsounds to upper lobes . Timing/Duration: today Severity: mild Associated Symptoms: shortness of breath Allergies/Adverse Reactions: No Known Drug Allergies Allergy (Verified 08/22/24 17:11) Home Medications: Aspirin EC 81 mg [Ecotrin 81 mg] 81 mg PO DAILY 11/02/12 [History] Levothyroxine Sodium 100 Mcg [Synthroid 100 Mcg] 125 mcg PO DAILY 11/02/12 [History] Fluticasone/Umeclidin/Vilanter [Trelegy Ellipta 100-62.5-25] 1 ea DAILY 09/24/20 [History] Furosemide 1 ea DAILY 09/24/20 [History] hydroCHLOROthiazide [Hydrochlorothiazide] 1 ea DAILY 09/24/20 [History] lisinopriL [Lisinopril] 1 ea DAILY 09/24/20 [History] Hx Tetanus, Diphtheria Vaccination/Date Given: Yes Hx Influenza Vaccination/Date Given: No Hx Pneumococcal Vaccination/Date Given: No Immunizations Up to Date: Yes Travel Risk - International Travel Have you traveled outside of the country in past 3 weeks: No - Emerging Infectious Disease Are you exhibiting symptoms associated with any current EIDs: No - Review of Systems Eyes: No Symptoms Ears, Nose, & Throat: No Symptoms Respiratory: Cough, Dyspnea, Dyspnea on Exertion (TRUONG) Cardiac: No Symptoms Abdominal/Gastrointestinal: No Symptoms - Past Medical History Pertinent Past Medical History: Yes Neurological History: No Pertinent History ENT History: No Pertinent History Cardiac History: High Cholesterol, Hypertension Respiratory History: COPD Endocrine Medical History: Hypothyroidism Musculoskeletal History: No Pertinent History GI Medical History: No Pertinent History History: No Pertinent History Psycho-Social History: No Pertinent History Female Reproductive Disorders: No Pertinent History - Past Surgical History Past Surgical History: Yes Neuro Surgical History: No Pertinent History Cardiac: Other Respiratory: No Pertinent History Gastrointestinal: No Pertinent History Genitourinary: No Pertinent History Musculoskeletal: No Pertinent History Female Surgical History: Hysterectomy Other Surgical History: bilateral carotid artery surgery 2013; hysterectomy 2007 - Social History Smoking Status: Former smoker How long have you smoked: 60 yrs Exposure to second hand smoke: Yes Drug Use: none Patient Lives Alone: No - Social Determinants of Health Will the patient participate in the screening: Declined to provide Comment: pt too sob - Nursing Vital Signs Nursing Vital Signs: Initial Vital Signs Pulse Rate 76 08/22/24 17:08 Respiratory Rate 15 08/22/24 17:08 Blood Pressure 155/65 08/22/24 17:08 O2 Sat by Pulse Oximetry 94 L 08/22/24 17:08 Pain Scale Pain Intensity 5 - Physical Exam General Appearance: no apparent distress Eye Exam: PERRL/EOMI, eyes nml inspection Ears, Nose, Throat Exam: normal ENT inspection Neck Exam: normal inspection Respiratory Exam: wheezing Cardiovascular Exam: regular rate/rhythm Gastrointestinal/Abdomen Exam: soft, normal bowel sounds Back Exam: normal inspection Extremity Exam: normal inspection Neurologic Exam: alert, oriented x 3 SpO2: 93 Ordered Tests: Active Orders 24 hr Category Date Time Status Oxygen-ED Only Nasal Cannula 2 lpm Care 08/22/24 17:28 Active CHEST 1 VIEW (PORTABLE) Stat Exams 08/22/24 17:29 Taken ARTERIAL BLOOD GASES Stat Lab 08/22/24 17:28 Ordered CBC W DIFF Stat Lab 08/22/24 17:25 Completed CMP Stat Lab 08/22/24 17:25 Completed Lactic Acid Stat Lab 08/22/24 17:28 Ordered MAGNESIUM Stat Lab 08/22/24 17:25 Completed NT PRO BNPII Stat Lab 08/22/24 17:25 Completed UA W/RFX UR CULTURE Stat Lab 08/22/24 17:29 Ordered Respiratory Therapy Assessment DAILY RT 08/22/24 17:33 Active Medication Summary Discontinued Medications Generic Name Dose Route Start Last Admin Trade Name Freq PRN Reason Stop Dose Admin Albuterol/Ipratropium 3 ml 08/22/24 17:30 08/22/24 17:33 Ipratropium/Albuterol Sulfate 3 Ml Ampul.Neb IH 08/22/24 17:31 3 ml STAT ONE Administration Albuterol/Ipratropium Confirm 08/22/24 17:28 Ipratropium/Albuterol Sulfate 3 Ml Ampul.Neb Administered 08/22/24 17:29 Dose 6 ml IH .STK-MED ONE Albuterol/Ipratropium 3 ml 08/22/24 17:32 08/22/24 17:33 Ipratropium/Albuterol Sulfate 3 Ml Ampul.Neb IH 08/22/24 17:33 3 ml STAT ONE Administration Albuterol/Ipratropium 3 ml 08/22/24 17:32 08/22/24 17:42 Ipratropium/Albuterol Sulfate 3 Ml Ampul.Neb IH 08/22/24 17:33 3 ml STAT ONE Administration Albuterol/Ipratropium Confirm 08/22/24 17:42 Ipratropium/Albuterol Sulfate 3 Ml Ampul.Neb Administered 08/22/24 17:43 Dose 3 ml IH .STK-MED ONE Methylprednisolone Sodium 0 mg 08/22/24 17:28 08/22/24 17:49 Succinate 125 mg/ Sterile IV 08/22/24 17:29 125 mg Water 2 ml STAT ONE Administration Ceftriaxone Sodium 1 gm in 100 mls @ 200 mls/hr 08/22/24 17:28 08/22/24 17:50 Rocephin 1 Gm / 100 Ml Nacl IV 08/22/24 17:57 200 ml/hr STAT ONE 200 mls/hr Administration Azithromycin 500 mg in 250 mls @ 250 mls/hr 08/22/24 17:28 08/22/24 18:25 Zithromax 500 Mg/ 250 Ml Nacl Premix IV 08/22/24 18:27 250 ml/hr STAT STA 250 mls/hr Administration Ceftriaxone Sodium Confirm 08/22/24 17:46 Rocephin 1 Gm / 100 Ml Nacl Administered 08/22/24 17:47 Dose 1 gm in 100 mls @ ud IV .STK-MED ONE Azithromycin Confirm 08/22/24 18:24 Zithromax 500 Mg/ 250 Ml Nacl Premix Administered 08/22/24 18:25 Dose 500 mg in 250 mls @ ud IV .STK-MED ONE Methylprednisolone Sodium Succinate Confirm 08/22/24 17:46 Methylprednis Sod Succ 125 Mg/2 Ml Vial Administered 08/22/24 17:47 Dose 125 mg .ROUTE .STK-MED ONE Sterile Water Confirm 08/22/24 17:45 Water For Injection,Sterile 10 Ml Vial Administered 08/22/24 17:46 Dose 10 ml IJ .STK-MED ONE Lab/Rad Data: Laboratory Result Diagrams 08/22/24 17:25 08/22/24 17:25 Laboratory Results 08/22/24 08/22/24 08/22/24 Range/Units 17:30 17:25 17:25 WBC (3.98-10.04) x10^3/uL RBC (3.93-5.22) x10^6/uL Hgb (11.2-15.7) g/dL Hct (34.1-44.9) % MCV (79.4-94.8) fL MCH (25.6-32.2) pg MCHC (32.2-35.5) g/dL RDW (11.7-14.4) % Plt Count (182-369) x10^3/uL MPV (9.4-12.3) fL Gran % (34.0-71.1) % Immature Gran % (Auto) (0.001-0.429) % Nucleat RBC Rel Count (0.00-0.2) % Eos # (Auto) (0.04-0.36) x10^3/uL Immature Gran # (Auto) (0.001-0.031) x10^3u/L Absolute Lymphs (auto) (1.18-3.74) x10^3/uL Absolute Monos (auto) (0.24-0.86) x10^3/uL Absolute Nucleated RBC (0.00-0.012) x10^3u/L Lymphocytes % (19.3-51.7) % Monocytes % (4.7-12.5) % Eosinophils % (0.7-5.8) % Basophils % (0.1-1.2) % Absolute Granulocytes (1.56-6.13) x10^3/uL Basophils # (0.01-0.08) x10^3/uL Sodium 139 (135-145) mmol/L Potassium 5.3 H (3.5-5.1) mmol/L Chloride 102 (98-107) mmol/L Carbon Dioxide 30 (22-30) mmol/L Anion Gap 11.4 (5-15) MEQ/L BUN 16 (7-17) mg/dL Creatinine 1.22 H (0.52-1.04) mg/dL Estimated GFR 45.1 ML/MIN Glucose 110 H (74-106) mg/dL Calcium 9.4 (8.4-10.2) mg/dL Magnesium 1.6 (1.6-2.3) mg/dL Total Bilirubin 0.70 (0.2-1.3) mg/dL AST 21 (14-36) U/L ALT 15 (0-35) U/L Alkaline Phosphatase 71 (38-126) U/L NT-Pro-B Natriuret Pep 2570 (<300) pg/mL Serum Total Protein 6.6 (6.3-8.2) g/dL Albumin 3.9 (3.5-5.0) g/dL Influenza Type A Ag NEGATIVE (NEGATIVE) Influenza Type B Ag NEGATIVE (NEGATIVE) RSV (PCR) NEGATIVE (NEGATIVE) SARS-CoV-2 (PCR) NEGATIVE (NEGATIVE) 08/22/24 Range/Units 17:25 WBC 15.2 H (3.98-10.04) x10^3/uL RBC 4.07 (3.93-5.22) x10^6/uL Hgb 11.7 (11.2-15.7) g/dL Hct 38.5 (34.1-44.9) % MCV 94.6 (79.4-94.8) fL MCH 28.7 (25.6-32.2) pg MCHC 30.4 L (32.2-35.5) g/dL RDW 13.6 (11.7-14.4) % Plt Count 224 (182-369) x10^3/uL MPV 10.4 (9.4-12.3) fL Gran % 86.0 H (34.0-71.1) % Immature Gran % (Auto) 0.7 H (0.001-0.429) % Nucleat RBC Rel Count 0.0 (0.00-0.2) % Eos # (Auto) 0.06 (0.04-0.36) x10^3/uL Immature Gran # (Auto) 0.10 H (0.001-0.031) x10^3u/L Absolute Lymphs (auto) 1.20 (1.18-3.74) x10^3/uL Absolute Monos (auto) 0.72 (0.24-0.86) x10^3/uL Absolute Nucleated RBC 0.00 (0.00-0.012) x10^3u/L Lymphocytes % 7.9 L (19.3-51.7) % Monocytes % 4.7 (4.7-12.5) % Eosinophils % 0.4 L (0.7-5.8) % Basophils % 0.3 (0.1-1.2) % Absolute Granulocytes 13.03 H (1.56-6.13) x10^3/uL Basophils # 0.05 (0.01-0.08) x10^3/uL Sodium (135-145) mmol/L Potassium (3.5-5.1) mmol/L Chloride (98-107) mmol/L Carbon Dioxide (22-30) mmol/L Anion Gap (5-15) MEQ/L BUN (7-17) mg/dL Creatinine (0.52-1.04) mg/dL Estimated GFR ML/MIN Glucose (74-106) mg/dL Calcium (8.4-10.2) mg/dL Magnesium (1.6-2.3) mg/dL Total Bilirubin (0.2-1.3) mg/dL AST (14-36) U/L ALT (0-35) U/L Alkaline Phosphatase (38-126) U/L NT-Pro-B Natriuret Pep (<300) pg/mL Serum Total Protein (6.3-8.2) g/dL Albumin (3.5-5.0) g/dL Influenza Type A Ag (NEGATIVE) Influenza Type B Ag (NEGATIVE) RSV (PCR) (NEGATIVE) SARS-CoV-2 (PCR) (NEGATIVE) - Progress Progress Note: other complaints patient was seen and evaluated for dyspnea with exertion she was noted to have wheezing she was given DuoNebs with some relief the decision was made to admit her to the hospital i spoke to the hospitalist who will admit her - he was updated with the results and chest x-ray and ct results 08/22/24 18:50 Medical Desision Making - Discussion of managment Care discussed with:: hospitalist Agreed on:: decision to admit - Departure Departure Disposition: Observation Clinical Impression: Shortness of breath, COPD exacerbation Condition: Good Critical Care Time: No Referrals: MIKE ALY [Primary Care Provider] - Follow up/PCP as directed Instructions: Chronic Obstructive Pulmonary Disease
[2024-08-22 18:59] LABS: A-aADO2 55; ABG HEMOGLOBIN 12.3; ABG POTASSIUM 4.5 (3.5-5.1); ARTERIAL BLD GAS O2 SATURATION 99.4 % (95-100); ARTERIAL BLOOD GAS BASE EXCESS 2.4 (-2.0-2.0); ARTERIAL BLOOD GAS FIO2 28 %; ARTERIAL BLOOD GAS PCO2 38 mmHg (35-45); ARTERIAL BLOOD GAS PO2 97 mmHg (75-100); ARTERIAL BLOOD GAS pH 7.45 (7.35-7.45); CARBOXYHEMOGLOBIN 1.5 % THgb (0.0-6.9); HCO3- 26.4 (22-28); HGB O2 SAT 96.8 g/dF (94-100); Lactic Acid 1.7 (0.4-2.0); Methhemoglobin 1.2 % (1.4-1.5); paO2 pAO1 0.64
[2024-08-22 19:00] LABS: ABG SITE LRA; ALLEN TEST OK? YES
[2024-08-22] MEDS ORDERED: Zofran 4 MG/2 ML VIAL IV PRN (19:42)
--- NOTE | 2024-08-22 19:58 | PCM.HP ---
History of Present Illness - Chief Complaint Chief Complaint: shortness of breath Date: 08/22/24 History of Present Illness: Ms. RAMSEY is a 79 year old female with a past medical history significant for hypertension, hyperlipidemia, hypothyroidism and COPD who presents to the hospital with complaints of increasing shortness of breath associated with hemoptysis. When she arrived, she was found to be hypoxic and was placed on supplemental oxygen with duonebs treatment. She denies any fever/chills. No chest pain or palpitations. No nausea, vomiting or diarrhea. No dysuria, hematuria or urgency. She has a history of carotid stenosis but does not recall any heart history though her son reports that she had something done. She has dealt with lower extremity edema in the past, and takes diuretics. - Review of Systems Constitutional: No Fever, No Chills Ears, Nose, & Throat: No Sinus Drainage Respiratory: Cough, Short Of Breath, Wheezing Cardiac: No Chest Pain, No Edema, No Palpitations Abdominal/Gastrointestinal: No Abdominal Pain, No Nausea, No Vomiting, No Diarrhea Genitourinary Symptoms: No Dysuria, No Hematuria Musculoskeletal: No Fall, No Joint Pain Skin: No Cellulitis, No Rash Neurological: Lethargy, No Dizziness Psychological: No Suicidal Ideations Endocrine: No Excessive Sweating Hematologic/Lymphatic: No Anemia Medications & Allergies Home Medications: Home Medication List Aspirin EC 81 mg [Ecotrin 81 mg] 81 mg PO DAILY 11/02/12 [History Confirmed 09/24/20] Levothyroxine Sodium 100 Mcg [Synthroid 100 Mcg] 125 mcg PO DAILY 11/02/12 [History Confirmed 09/24/20] Acetaminophen 325 mg [Tylenol 325 mg] 650 mg PO Q4H PRN PRN tablet 09/08/19 [Rx Confirmed 09/24/20] Furosemide 40 mg [Lasix 40 MG] 40 mg PO DAILY #30 tablet 09/08/19 [Rx Confirmed 09/24/20] Gabapentin 100 mg PO BID #60 capsule 09/08/19 [Rx Confirmed 09/24/20] Fluticasone/Umeclidin/Vilanter [Trelegy Ellipta 100-62.5-25] 1 ea DAILY 09/24/20 [History Confirmed 09/24/20] Furosemide 1 ea DAILY 09/24/20 [History Confirmed 09/24/20] hydroCHLOROthiazide [Hydrochlorothiazide] 1 ea DAILY 09/24/20 [History Confirmed 09/24/20] lisinopriL [Lisinopril] 1 ea DAILY 09/24/20 [History Confirmed 09/24/20] Allergies/Adverse Reactions: Allergies Allergy/AdvReac Type Severity Reaction Status Date / Time No Known Drug Allergies Allergy Verified 08/22/24 17:11 - Past Medical History Past Medical History: Yes Neurological History: No Pertinent History ENT History: No Pertinent History Cardiac History: High Cholesterol, Hypertension Respiratory History: COPD Endocrine Medical History: Hypothyroidism Musculoskelatal History: No Pertinent History GI Medical History: No Pertinent History History: No Pertinent History Pyscho-Social History: No Pertinent History Reproductive Disorders: No Pertinent History - Past Surgical History Past Surgical History: Yes Neuro Surgical History: No Pertinent History Cardiac History: Other Respiratory Surgery: No Pertinent History GI Surgical History: No Pertinent History Genitourinary Surgical Hx: No Pertinent History Musculskeletal Surgical Hx: No Pertinent History Female Surgical History: Hysterectomy Other Surgical History: bilateral carotid artery surgery 2013; hysterectomy 2007 - Social History Smoking Status: Former smoker How long have you smoked: 60 yrs Exposure to second hand smoke: Yes Alcohol: None Drug Use: none - Social Determinants of Health Will the patient participate in the screening: Declined to provide Comment: pt too sob - Physical Exam Vital Signs: Vital Signs - 24 hr Temp Pulse Resp BP BP Pulse Ox 08/22/24 19:00 117 H 21 121/67 95 08/22/24 18:55 93 L 08/22/24 18:30 119 H 27 H 141/76 08/22/24 18:00 97 H 32 H 123/68 93 L 08/22/24 17:34 75 25 H 93 L 08/22/24 17:30 89 21 130/67 100 08/22/24 17:13 97.6 F 70 18 155/65 95 08/22/24 17:11 24 95 08/22/24 17:08 76 15 155/65 94 L General Appearance: mild distress Neurologic Exam: alert, cooperative Ears, Nose, Throat Exam: moist mucous membranes Neck Exam: supple Respiratory Exam: rhonchi, wheezing Cardiovascular Exam: regular rate/rhythm Gastrointestinal/Abdomen Exam: soft Extremity Exam: pedal edema, swelling Skin Exam: normal color, No rash Results - Labs Lab/Micro Results: Lab Results-Last 24 Hours 08/22/24 08/22/24 08/22/24 Range/Units 17:25 17:25 17:25 WBC 15.2 H (3.98-10.04) x10^3/uL RBC 4.07 (3.93-5.22) x10^6/uL Hgb 11.7 (11.2-15.7) g/dL Hct 38.5 (34.1-44.9) % MCV 94.6 (79.4-94.8) fL MCH 28.7 (25.6-32.2) pg MCHC 30.4 L (32.2-35.5) g/dL RDW 13.6 (11.7-14.4) % Plt Count 224 (182-369) x10^3/uL MPV 10.4 (9.4-12.3) fL Gran % 86.0 H (34.0-71.1) % Immature Gran % (Auto) 0.7 H (0.001-0.429) % Nucleat RBC Rel Count 0.0 (0.00-0.2) % Eos # (Auto) 0.06 (0.04-0.36) x10^3/uL Immature Gran # (Auto) 0.10 H (0.001-0.031) x10^3u/L Absolute Lymphs (auto) 1.20 (1.18-3.74) x10^3/uL Absolute Monos (auto) 0.72 (0.24-0.86) x10^3/uL Absolute Nucleated RBC 0.00 (0.00-0.012) x10^3u/L Lymphocytes % 7.9 L (19.3-51.7) % Monocytes % 4.7 (4.7-12.5) % Eosinophils % 0.4 L (0.7-5.8) % Basophils % 0.3 (0.1-1.2) % Absolute Granulocytes 13.03 H (1.56-6.13) x10^3/uL Basophils # 0.05 (0.01-0.08) x10^3/uL Puncture Site pCO2 (35-45) mmHg pO2 (75-100) mmHg Base Excess (-2.0-2.0) O2 Saturation (94-100) g/dF ABG pH (7.35-7.45) ABG HCO3 (22-28) ABG O2 Sat (Measured) (95-100) % Feliz Test A-a Gradient a/A Ratio Hemoglobin Carboxyhemoglobin (0.0-6.9) % THgb Methemoglobin (1.4-1.5) % Temperature C POC O2 Flow Rate % Sodium 139 (135-145) mmol/L Potassium 5.3 H (3.5-5.1) mmol/L Chloride 102 (98-107) mmol/L Carbon Dioxide 30 (22-30) mmol/L Anion Gap 11.4 (5-15) MEQ/L BUN 16 (7-17) mg/dL Creatinine 1.22 H (0.52-1.04) mg/dL Estimated GFR 45.1 ML/MIN Glucose 110 H (74-106) mg/dL Lactic Acid (0.4-2.0) Calcium 9.4 (8.4-10.2) mg/dL Magnesium 1.6 (1.6-2.3) mg/dL Total Bilirubin 0.70 (0.2-1.3) mg/dL AST 21 (14-36) U/L ALT 15 (0-35) U/L Alkaline Phosphatase 71 (38-126) U/L NT-Pro-B Natriuret Pep 2570 (<300) pg/mL Serum Total Protein 6.6 (6.3-8.2) g/dL Albumin 3.9 (3.5-5.0) g/dL Influenza Type A Ag (NEGATIVE) Influenza Type B Ag (NEGATIVE) RSV (PCR) (NEGATIVE) SARS-CoV-2 (PCR) (NEGATIVE) 08/22/24 08/22/24 Range/Units 17:28 17:30 WBC (3.98-10.04) x10^3/uL RBC (3.93-5.22) x10^6/uL Hgb (11.2-15.7) g/dL Hct (34.1-44.9) % MCV (79.4-94.8) fL MCH (25.6-32.2) pg MCHC (32.2-35.5) g/dL RDW (11.7-14.4) % Plt Count (182-369) x10^3/uL MPV (9.4-12.3) fL Gran % (34.0-71.1) % Immature Gran % (Auto) (0.001-0.429) % Nucleat RBC Rel Count (0.00-0.2) % Eos # (Auto) (0.04-0.36) x10^3/uL Immature Gran # (Auto) (0.001-0.031) x10^3u/L Absolute Lymphs (auto) (1.18-3.74) x10^3/uL Absolute Monos (auto) (0.24-0.86) x10^3/uL Absolute Nucleated RBC (0.00-0.012) x10^3u/L Lymphocytes % (19.3-51.7) % Monocytes % (4.7-12.5) % Eosinophils % (0.7-5.8) % Basophils % (0.1-1.2) % Absolute Granulocytes (1.56-6.13) x10^3/uL Basophils # (0.01-0.08) x10^3/uL Puncture Site LRA pCO2 38 (35-45) mmHg pO2 97 (75-100) mmHg Base Excess 2.4 H (-2.0-2.0) O2 Saturation 96.8 (94-100) g/dF ABG pH 7.45 (7.35-7.45) ABG HCO3 26.4 (22-28) ABG O2 Sat (Measured) 99.4 (95-100) % Feliz Test YES A-a Gradient 55 a/A Ratio 0.64 Hemoglobin 12.3 Carboxyhemoglobin 1.5 (0.0-6.9) % THgb Methemoglobin 1.2 L (1.4-1.5) % Temperature 37.0 C POC O2 Flow Rate 28 % Sodium (135-145) mmol/L Potassium 4.5 (3.5-5.1) mmol/L Chloride (98-107) mmol/L Carbon Dioxide (22-30) mmol/L Anion Gap (5-15) MEQ/L BUN (7-17) mg/dL Creatinine (0.52-1.04) mg/dL Estimated GFR ML/MIN Glucose (74-106) mg/dL Lactic Acid 1.7 (0.4-2.0) Calcium (8.4-10.2) mg/dL Magnesium (1.6-2.3) mg/dL Total Bilirubin (0.2-1.3) mg/dL AST (14-36) U/L ALT (0-35) U/L Alkaline Phosphatase (38-126) U/L NT-Pro-B Natriuret Pep (<300) pg/mL Serum Total Protein (6.3-8.2) g/dL Albumin (3.5-5.0) g/dL Influenza Type A Ag NEGATIVE (NEGATIVE) Influenza Type B Ag NEGATIVE (NEGATIVE) RSV (PCR) NEGATIVE (NEGATIVE) SARS-CoV-2 (PCR) NEGATIVE (NEGATIVE) - Radiology Impressions Radiology Exams & Impressions: Radiology Procedures Category Date Time Status CHEST 1 VIEW (PORTABLE) Stat Exams 08/22/24 17:29 Taken - Other Procedures and Tests Respiratory Therapy 08/22/24 17:33 Respiratory Therapy Assessment DAILY 08/22/24 19:42 Oxygen Nasal Cannula 2 lpm Respiratory Therapy Consult ONCE Assessment/Plan (1) Shortness of breath Current Visit: Yes Status: Acute Assessment & Plan: Likely from COPD exacerbation but may also involve some component of fluid overload versus some underlying pneumonia with elevated WBC 1. Admit to hospital 2. Attempt diuresis 3. Supplemental O2 4. Monitor O2 sats 5. Will give empiric antibiotics, check sputum culture 6. Check echo Code(s): R06.02 - SHORTNESS OF BREATH (2) COPD exacerbation Current Visit: Yes Status: Acute Assessment & Plan: COPD exacerbation 1. Empiric antibiotics 2. Sputum culture 3. Duonebs Code(s): J44.1 - CHRONIC OBSTRUCTIVE PULMONARY DISEASE W (ACUTE) EXACERBATION (3) Acute renal failure Current Visit: No Status: Acute Assessment & Plan: Likely from volume overload 1. Check renal u/s 2. Check urine lytes 3. Follow I/Os 4. Watch electrolytes, creatinine closely (4) Hypertensive chronic kidney disease with stage 1 through stage 4 chronic kidney disease, or unspecified chronic kidney disease Current Visit: Yes Status: Acute Assessment & Plan: Blood pressure under reasonable control 1. Continue bp meds 2. Low Na diet 3. Monitor blood pressure readings Code(s): I12.9 - HYPERTENSIVE CHRONIC KIDNEY DISEASE W STG 1-4/UNSP CHR KDNY Telemedicine Encounter - Telemedicine Encounter Telemedicine Encounter: "The entirety of this encounter was performed via Telemedicine" This visit was performed using real-time audio and video connection between my location and thepatients locationwith the assistance of a surrogateat the patients location. Written or verbal consent was obtained from the patient/guardian to perform this visit usingsynchronoustelemedicine technology. Any patient questions regarding the telemedicine interaction were answered.
[2024-08-22 20:17] LABS: Appearance Clear (Clear); Bacteria Few /HPF (None Seen); Bilirubin Negative (Negative); Blood Negative (Negative); Epithelial Cells Moderate /HPF (None Seen); Glucose, Urine Negative (Negative); Ketones Trace (Negative); Leukocyte Esterase Large (Negative); Nitrite Negative (Negative); Ph 6.5 (4.6-8.0); Protein,Urine Dip Trace (Negative); RBC 0-2 /HPF (0-5)
[2024-08-22] MEDS: Sodium Chloride 0.9% 1000 ML 1,000 ML IV SCH (21:14)
[2024-08-22] MEDS: Lasix 40 MG/4 ML IV SCH (21:16)
[2024-08-22] MEDS ORDERED: Neurontin PO SCH (22:00)
[2024-08-23] MEDS: DUONEB 0.5-3 MG/3 ml Neb IH SCH (01:06)
[2024-08-23 05:25] LABS: Hematocrit 34.6 % (34.1-44.9); Hemoglobin 10.6 g/dL (11.2-15.7); Mean Cell Volume 93.3 fL (79.4-94.8); Mean Corpuscular Hemoglobin 28.6 pg (25.6-32.2); Mean Corpuscular Hgb Concent. 30.6 g/dL (32.2-35.5); Mean Platelet Volume 10.7 fL (9.4-12.3); Platelet Count 216 x10^3/uL (182-369); Red Blood Count 3.71 x10^6/uL (3.93-5.22); White Blood Count 11.5 x10^3/uL (3.98-10.04)
--- NOTE | 2024-08-23 05:42 | PCM.NOTE ---
Date and Time: 08/23/24 0533 Subjective Assessment: Ms. RAMSEY is a 79 year old female with a past medical history significant for carotid stenosis, hypertension, hyperlipidemia, hypothyroidism and COPD admitted 08/22/24 with shortness of breath and COPD exacerbation after presenting to ED with complaints of progressive dyspnea and hemoptysis. Labs remarkable for leukocytosis, BNP elevated at 2570, creat mildly elevated at 1.22 (baseline around 1.2-1.4) and UA suspicious for infection. 08/23: Met with patient bedside. Endorses cough with white sputum, wheezing, and shortness of breath. States this has been going on for approximately 1-2 weeks with progressive worsening. No fever or recent sick contacts. On her baseline oxygen of 3L. Denies fever,cp, abdominal pain, HERNANDEZ, dizziness, N/V/D. - Review of Systems Constitutional: Fatigue, Weakness Eyes: No Symptoms Ears, Nose, & Throat: No Symptoms Respiratory: Cough, Short Of Breath, Wheezing Cardiac: No Symptoms Abdominal/Gastrointestinal: No Symptoms Genitourinary Symptoms: No Symptoms Musculoskeletal: No Symptoms Skin: No Symptoms Neurological: No Symptoms Psychological: No Symptoms Endocrine: No Symptoms Hematologic/Lymphatic: No Symptoms Immunological/Allergic: No Symptoms Objective Exam General Appearance: no apparent distress Neurologic Exam: alert, oriented x 3, cooperative Skin Exam: normal color Eye Exam: PERRL Ears, Nose, Throat Exam: normal ENT inspection Neck Exam: normal inspection Respiratory Exam: crackles/rales, wheezing Cardiovascular Exam: regular rate/rhythm, normal heart sounds Gastrointestinal/Abdomen Exam: soft, normal bowel sounds Extremity Exam: normal inspection Back Exam: normal inspection Pelvic Exam: deferred Rectal Exam: deferred Objective Data Vital Signs: Vital Signs - 24 hr Temp Pulse Resp BP BP Pulse Ox 08/23/24 01:11 87 30 H 100 08/22/24 23:13 97.8 F 93 H 18 128/60 92 L 08/22/24 21:21 115 H 22 90 L 08/22/24 20:21 90 L 08/22/24 20:15 98.3 F 103 H 22 122/56 90 L 08/22/24 19:00 117 H 21 121/67 95 08/22/24 18:55 93 L 08/22/24 18:30 119 H 27 H 141/76 08/22/24 18:00 97 H 32 H 123/68 93 L 08/22/24 17:34 75 25 H 93 L 08/22/24 17:30 89 21 130/67 100 08/22/24 17:13 97.6 F 70 18 155/65 95 08/22/24 17:11 24 95 08/22/24 17:08 76 15 155/65 94 L Pain Assessment - Last Documented Pain Intensity 0 Intake and Output: Intake & Output 08/20/24 08/21/24 08/22/24 08/23/24 11:59 11:59 11:59 11:59 Intake Total 100 Output Total 600 Balance -500 Weight 71.8 kg Lab Results: Lab Results-Last 24 Hours 08/22/24 08/22/24 08/22/24 Range/Units 17:25 17:25 17:25 WBC 15.2 H (3.98-10.04) x10^3/uL RBC 4.07 (3.93-5.22) x10^6/uL Hgb 11.7 (11.2-15.7) g/dL Hct 38.5 (34.1-44.9) % MCV 94.6 (79.4-94.8) fL MCH 28.7 (25.6-32.2) pg MCHC 30.4 L (32.2-35.5) g/dL RDW 13.6 (11.7-14.4) % Plt Count 224 (182-369) x10^3/uL MPV 10.4 (9.4-12.3) fL Gran % 86.0 H (34.0-71.1) % Immature Gran % (Auto) 0.7 H (0.001-0.429) % Nucleat RBC Rel Count 0.0 (0.00-0.2) % Eos # (Auto) 0.06 (0.04-0.36) x10^3/uL Immature Gran # (Auto) 0.10 H (0.001-0.031) x10^3u/L Absolute Lymphs (auto) 1.20 (1.18-3.74) x10^3/uL Absolute Monos (auto) 0.72 (0.24-0.86) x10^3/uL Absolute Nucleated RBC 0.00 (0.00-0.012) x10^3u/L Lymphocytes % 7.9 L (19.3-51.7) % Monocytes % 4.7 (4.7-12.5) % Eosinophils % 0.4 L (0.7-5.8) % Basophils % 0.3 (0.1-1.2) % Absolute Granulocytes 13.03 H (1.56-6.13) x10^3/uL Basophils # 0.05 (0.01-0.08) x10^3/uL Puncture Site pCO2 (35-45) mmHg pO2 (75-100) mmHg Base Excess (-2.0-2.0) O2 Saturation (94-100) g/dF ABG pH (7.35-7.45) ABG HCO3 (22-28) ABG O2 Sat (Measured) (95-100) % Feliz Test A-a Gradient a/A Ratio Hemoglobin Carboxyhemoglobin (0.0-6.9) % THgb Methemoglobin (1.4-1.5) % Temperature C POC O2 Flow Rate % Sodium 139 (135-145) mmol/L Potassium 5.3 H (3.5-5.1) mmol/L Chloride 102 (98-107) mmol/L Carbon Dioxide 30 (22-30) mmol/L Anion Gap 11.4 (5-15) MEQ/L BUN 16 (7-17) mg/dL Creatinine 1.22 H (0.52-1.04) mg/dL Estimated GFR 45.1 ML/MIN Glucose 110 H (74-106) mg/dL Lactic Acid (0.4-2.0) Calcium 9.4 (8.4-10.2) mg/dL Magnesium 1.6 (1.6-2.3) mg/dL Total Bilirubin 0.70 (0.2-1.3) mg/dL AST 21 (14-36) U/L ALT 15 (0-35) U/L Alkaline Phosphatase 71 (38-126) U/L NT-Pro-B Natriuret Pep 2570 (<300) pg/mL Serum Total Protein 6.6 (6.3-8.2) g/dL Albumin 3.9 (3.5-5.0) g/dL Urine Color (Yellow) Urine Appearance (Clear) Urine pH (4.6-8.0) Ur Specific Thornton (1.005-1.030) Urine Protein (Negative) Urine Glucose (UA) (Negative) mg/dL Urine Ketones (Negative) Urine Blood (Negative) Urine Nitrite (Negative) Urine Bilirubin (Negative) Urine Urobilinogen (0.2) mg/dL Ur Leukocyte Esterase (Negative) U Hyaline Cast (Auto) (0-2) /LPF Urine Microscopic RBC (0-5) /HPF Urine Microscopic WBC (0-5) /HPF Ur Epithelial Cells (None Seen) /HPF Urine Bacteria (None Seen) /HPF Urine Culture Reflexed (NO) Influenza Type A Ag (NEGATIVE) Influenza Type B Ag (NEGATIVE) RSV (PCR) (NEGATIVE) SARS-CoV-2 (PCR) (NEGATIVE) 08/22/24 08/22/24 08/22/24 Range/Units 17:28 17:30 19:41 WBC (3.98-10.04) x10^3/uL RBC (3.93-5.22) x10^6/uL Hgb (11.2-15.7) g/dL Hct (34.1-44.9) % MCV (79.4-94.8) fL MCH (25.6-32.2) pg MCHC (32.2-35.5) g/dL RDW (11.7-14.4) % Plt Count (182-369) x10^3/uL MPV (9.4-12.3) fL Gran % (34.0-71.1) % Immature Gran % (Auto) (0.001-0.429) % Nucleat RBC Rel Count (0.00-0.2) % Eos # (Auto) (0.04-0.36) x10^3/uL Immature Gran # (Auto) (0.001-0.031) x10^3u/L Absolute Lymphs (auto) (1.18-3.74) x10^3/uL Absolute Monos (auto) (0.24-0.86) x10^3/uL Absolute Nucleated RBC (0.00-0.012) x10^3u/L Lymphocytes % (19.3-51.7) % Monocytes % (4.7-12.5) % Eosinophils % (0.7-5.8) % Basophils % (0.1-1.2) % Absolute Granulocytes (1.56-6.13) x10^3/uL Basophils # (0.01-0.08) x10^3/uL Puncture Site LRA pCO2 38 (35-45) mmHg pO2 97 (75-100) mmHg Base Excess 2.4 H (-2.0-2.0) O2 Saturation 96.8 (94-100) g/dF ABG pH 7.45 (7.35-7.45) ABG HCO3 26.4 (22-28) ABG O2 Sat (Measured) 99.4 (95-100) % Feliz Test YES A-a Gradient 55 a/A Ratio 0.64 Hemoglobin 12.3 Carboxyhemoglobin 1.5 (0.0-6.9) % THgb Methemoglobin 1.2 L (1.4-1.5) % Temperature 37.0 C POC O2 Flow Rate 28 % Sodium (135-145) mmol/L Potassium 4.5 (3.5-5.1) mmol/L Chloride (98-107) mmol/L Carbon Dioxide (22-30) mmol/L Anion Gap (5-15) MEQ/L BUN (7-17) mg/dL Creatinine (0.52-1.04) mg/dL Estimated GFR ML/MIN Glucose (74-106) mg/dL Lactic Acid 1.7 (0.4-2.0) Calcium (8.4-10.2) mg/dL Magnesium (1.6-2.3) mg/dL Total Bilirubin (0.2-1.3) mg/dL AST (14-36) U/L ALT (0-35) U/L Alkaline Phosphatase (38-126) U/L NT-Pro-B Natriuret Pep (<300) pg/mL Serum Total Protein (6.3-8.2) g/dL Albumin (3.5-5.0) g/dL Urine Color Yellow (Yellow) Urine Appearance Clear (Clear) Urine pH 6.5 (4.6-8.0) Ur Specific Thornton 1.020 (1.005-1.030) Urine Protein Trace A (Negative) Urine Glucose (UA) Negative (Negative) mg/dL Urine Ketones Trace A (Negative) Urine Blood Negative (Negative) Urine Nitrite Negative (Negative) Urine Bilirubin Negative (Negative) Urine Urobilinogen 1.0 A (0.2) mg/dL Ur Leukocyte Esterase Large A (Negative) U Hyaline Cast (Auto) 3-5 A (0-2) /LPF Urine Microscopic RBC 0-2 (0-5) /HPF Urine Microscopic WBC 6-10 A (0-5) /HPF Ur Epithelial Cells Moderate A (None Seen) /HPF Urine Bacteria Few A (None Seen) /HPF Urine Culture Reflexed YES (NO) Influenza Type A Ag NEGATIVE (NEGATIVE) Influenza Type B Ag NEGATIVE (NEGATIVE) RSV (PCR) NEGATIVE (NEGATIVE) SARS-CoV-2 (PCR) NEGATIVE (NEGATIVE) Radiology Exams: Radiology Procedures Category Date Time Status CHEST 1 VIEW (PORTABLE) Stat Exams 08/22/24 17:29 Taken ECHO W/2D AND DOPPLER [US] Routine Exams 08/22/24 20:21 Ordered Assessment/Plan (1) COPD exacerbation Current Visit: Yes Status: Acute Assessment & Plan: -Rocephin initiated -will continue add azithromycin -Nebs/inh -RT eval and follow -Supplemental oxygen with spo2 goal 89-92% -sputum culture pending -cxr with no acute findings -steroids - solumedrol -ABG if significant lethary/hypoxia -consider CT if no improvement Code(s): J44.1 - CHRONIC OBSTRUCTIVE PULMONARY DISEASE W (ACUTE) EXACERBATION (2) Shortness of breath Current Visit: Yes Status: Acute Assessment & Plan: -secondary to COPD exac - see plan above Code(s): R06.02 - SHORTNESS OF BREATH (3) Hypertensive chronic kidney disease with stage 1 through stage 4 chronic kidney disease, or unspecified chronic kidney disease Current Visit: Yes Status: Acute Assessment & Plan: -Stable, continue home meds - monitor Code(s): I12.9 - HYPERTENSIVE CHRONIC KIDNEY DISEASE W STG 1-4/UNSP CHR KDNY (4) UTI (urinary tract infection) Current Visit: Yes Status: Acute Assessment & Plan: -urine suspicious for UTI, on ceftriaxone, will follow culture VTE: lovenox PPI: Protonix Dispo: 1-2 days Code(s): N39.0 - URINARY TRACT INFECTION, SITE NOT SPECIFIED (5) Acute renal failure Current Visit: No Status: Acute Assessment & Plan: -baseline reviewed based on previous lab work around 1.2-1.4 -Reviewed CMP - creat at 1.61 today - most likely secondary to lasix given yesterday - will d/c -Monitor renal/lytes -avoid nephrotoxic meds (6) Elevated brain natriuretic peptide (BNP) level Current Visit: Yes Status: Acute Assessment & Plan: -no h/o CHF -BNP reviewed and elevated at 2570 -Obtain echo Code(s): R79.89 - OTHER SPECIFIED ABNORMAL FINDINGS OF BLOOD CHEMISTRY
[2024-08-23 05:51] LABS: ALBUMIN 3.7 g/dL (3.5-5.0); ANION GAP 14.3 MEQ/L (5-15); BILIRUBIN,TOTAL 0.4 mg/dL (0.2-1.3); Calcium 9.2 mg/dL (8.4-10.2); Creatinine 1 1.61 mg/dL (0.52-1.04); EST GLOMERULAR FILTRATION RATE 32.4 ML/MIN; Potassium 4.8 mmol/L (3.5-5.1); Total Protein 6.3 g/dL (6.3-8.2)
--- NOTE | 2024-08-23 08:48 | XRAY ---
Indication: Short of breath. Comparison: October 30, 2022 Portable chest unchanged again demonstrating chronic lung markings, left base calcified pleural plaquing, cardiomegaly with aortic calcifications, and left hilar calcified nodes. Bony thorax intact again with osteopenia, degenerative changes, and scoliosis. No new/acute cardiopulmonary abnormalities.
[2024-08-23] MEDS ORDERED: ENOXAPARIN SODIUM SQ SCH (10:00)
[2024-08-23] MEDS ORDERED: SYNTHROID 100 MCG PO SCH (10:00)
[2024-08-23] MEDS: ENOXAPARIN SODIUM SQ SCH (10:04)
[2024-08-23] MEDS: SYNTHROID 125 MCG PO SCH (10:05)
[2024-08-23] MEDS: Protonix 40MG Tablet PO SCH (10:05)
[2024-08-23] MEDS: ECOTRIN 81 MG PO SCH (10:05)
[2024-08-23] MEDS: ROCEPHIN 1 GM / 100 ML NaCl 1 GM/100 ML IVPB IV SCH (10:08)
[2024-08-23] MEDS: Robitussin AC Syrup Unit Dose Cup PO PRN (13:57)
[2024-08-23] MEDS: solu-MEDROL 40 MG, Sterile H2O 10 ml 1 ML IV SCH (14:35)
[2024-08-23] MEDS: TYLENOL 325 MG PO PRN (15:53)
[2024-08-23] MEDS: Advair Hfa 230/21 Mcg COMMON CANISTER IH SCH (18:32)
[2024-08-23] MEDS ORDERED: solu-MEDROL ONE (22:23)
[2024-08-23] MEDS: Zithromax 500 MG/ 250 ML NaCl Premix 500 MG/250 ML IVPB IV SCH (22:40)
--- NOTE | 2024-08-24 05:08 | PCM.NOTE ---
Date and Time: 08/24/24 9712 Subjective Assessment: Ms. RAMSEY is a 79 year old female with a past medical history significant for carotid stenosis, hypertension, hyperlipidemia, hypothyroidism and COPD admitted 08/22/24 with shortness of breath and COPD exacerbation after presenting to ED with complaints of progressive dyspnea and hemoptysis. Labs remarkable for leukocytosis, BNP elevated at 2570, creat mildly elevated at 1.22 (baseline around 1.2-1.4) and UA suspicious for infection. 08/23: Met with patient bedside. Endorses cough with white sputum, wheezing, and shortness of breath. States this has been going on for approximately 1-2 weeks with progressive worsening. No fever or recent sick contacts. On her baseline oxygen of 3L. Denies fever,cp, abdominal pain, HERNANDEZ, dizziness, N/V/D. 08/24: Patient with increased oxygen requirements overnight, now on 5L >3L. Patient states that her dyspnea and cough have improved. Lung sounds coarse with exp wheezing on auscultation. Ucult growing gram -. WBC and Creat elevated. Patient has been receiving steroids and lasix which could account for these elevations. Will continue with ceftriaxone and azithromycin for now. Sputum culture pending. Denies fever, cp, abdominal pain, HERNANDEZ, dizziness, N/V/D. - Review of Systems Constitutional: Weakness Eyes: No Symptoms Ears, Nose, & Throat: No Symptoms Respiratory: Cough, Short Of Breath Cardiac: No Symptoms Abdominal/Gastrointestinal: No Symptoms Genitourinary Symptoms: No Symptoms Musculoskeletal: No Symptoms Skin: No Symptoms Neurological: No Symptoms Psychological: No Symptoms Endocrine: No Symptoms Hematologic/Lymphatic: No Symptoms Immunological/Allergic: No Symptoms Objective Exam General Appearance: no apparent distress Neurologic Exam: alert, oriented x 3, cooperative Skin Exam: pale Eye Exam: PERRL Ears, Nose, Throat Exam: normal ENT inspection Neck Exam: normal inspection Respiratory Exam: diminished breath sounds, crackles/rales Cardiovascular Exam: regular rate/rhythm, normal heart sounds Gastrointestinal/Abdomen Exam: soft, normal bowel sounds Extremity Exam: normal inspection Back Exam: normal inspection Pelvic Exam: deferred Rectal Exam: deferred Objective Data Vital Signs: Vital Signs - 24 hr Temp Pulse Resp BP BP Pulse Ox 08/24/24 03:37 97.0 F 87 17 141/63 92 L 08/24/24 00:34 92 H 22 93 L 08/23/24 23:27 97.4 F 99 H 24 162/74 93 L 08/23/24 19:48 97.9 F 98 H 17 114/61 92 L 08/23/24 18:36 88 20 93 L 08/23/24 16:00 98.3 F 99 H 30 H 150/66 91 L 08/23/24 13:31 95 H 20 100 08/23/24 11:44 97.6 F 87 18 132/60 92 L 08/23/24 07:39 72 18 95 08/23/24 07:09 97.6 F 78 18 126/61 92 L Pain Assessment - Last Documented Pain Intensity 0 Pain Scale Used 0-10 Pain Scale Intake and Output: Intake & Output 08/21/24 08/22/24 08/23/24 08/24/24 11:59 11:59 11:59 11:59 Intake Total 460 120 Output Total 600 200 Balance -140 -80 Weight 69.4 kg Lab Results: Lab Results-Last 24 Hours 08/23/24 08/23/24 08/23/24 Range/Units 05:20 05:20 05:20 WBC 11.5 H (3.98-10.04) x10^3/uL RBC 3.71 L (3.93-5.22) x10^6/uL Hgb 10.6 L (11.2-15.7) g/dL Hct 34.6 (34.1-44.9) % MCV 93.3 (79.4-94.8) fL MCH 28.6 (25.6-32.2) pg MCHC 30.6 L (32.2-35.5) g/dL RDW 14.0 (11.7-14.4) % Plt Count 216 (182-369) x10^3/uL MPV 10.7 (9.4-12.3) fL D-Dimer 0.55 H (0.0-0.50) mg/L Sodium 141 (135-145) mmol/L Potassium 4.8 (3.5-5.1) mmol/L Chloride 102 (98-107) mmol/L Carbon Dioxide 29 (22-30) mmol/L Anion Gap 14.3 (5-15) MEQ/L BUN 25 H (7-17) mg/dL Creatinine 1.61 H (0.52-1.04) mg/dL Estimated GFR 32.4 ML/MIN Glucose 158 H (74-106) mg/dL Calcium 9.2 (8.4-10.2) mg/dL Total Bilirubin 0.40 (0.2-1.3) mg/dL AST 16 (14-36) U/L ALT 13 (0-35) U/L Alkaline Phosphatase 63 (38-126) U/L Serum Total Protein 6.3 (6.3-8.2) g/dL Albumin 3.7 (3.5-5.0) g/dL Radiology Exams: Radiology Procedures Category Date Time Status CHEST 1 VIEW (PORTABLE) Stat Exams 08/22/24 17:29 Completed ECHO W/2D AND DOPPLER [US] Routine Exams 08/23/24 07:00 Taken Multi-Disciplinary Progress Notes: Multi-Disciplinary Progress Notes 08/24/24 02:20 Radiology Note by TIRSO BRAXTON TRANSTHORACIC ECHOCARDIOGRAM 08/23/2024: 1. Normal chamber sizes. 2. Mild concentric left ventricular hypertrophy. 3. Normal left ventricular systolic function without focal wall motion abnormalities. Estimated EF 60%. 4. Mild diastolic dysfunction. 5. Normal right ventricular systolic function. 6. Mild aortic sclerosis without stenosis. 7. Doppler: No significant valvular regurgitation. 8. Mildly calcified aortic root. 9. Normal PA pressure. 10. Normal right atrial pressure. 11. No pericardial effusion. Tirso Braxton MD [facility] Initialized on 08/24/24 02:20 - END OF NOTE Assessment/Plan (1) COPD exacerbation Current Visit: Yes Status: Acute Assessment & Plan: -Rocephin initiated -will continue add azithromycin -Nebs/inh -RT eval and follow -Supplemental oxygen with spo2 goal 89-92% -sputum culture pending -cxr with no acute findings -steroids - solumedrol -ABG if significant lethary/hypoxia -consider CT if no improvement 08/24: -DDImer at 0.55 -sputum culture pending -continue abx/steroids -Advair -On 5L -CT chest w/o contrast with no acute findings infiltrates, effusions or mass Code(s): J44.1 - CHRONIC OBSTRUCTIVE PULMONARY DISEASE W (ACUTE) EXACERBATION (2) Shortness of breath Current Visit: Yes Status: Acute Assessment & Plan: -secondary to COPD exac - see plan above Code(s): R06.02 - SHORTNESS OF BREATH (3) Hypertensive chronic kidney disease with stage 1 through stage 4 chronic kidney disease, or unspecified chronic kidney disease Current Visit: Yes Status: Acute Assessment & Plan: -Stable, continue home meds - monitor Code(s): I12.9 - HYPERTENSIVE CHRONIC KIDNEY DISEASE W STG 1-4/UNSP CHR KDNY (4) UTI (urinary tract infection) Current Visit: Yes Status: Acute Assessment & Plan: -urine suspicious for UTI, on ceftriaxone, Ucult growing gram - ID -will follow culture VTE: lovenox PPI: Protonix Dispo: 1-2 days Code(s): N39.0 - URINARY TRACT INFECTION, SITE NOT SPECIFIED (5) Acute renal failure Current Visit: No Status: Acute Assessment & Plan: -baseline reviewed based on previous lab work around 1.2-1.4 -Reviewed CMP - creat at 1.61 today - most likely secondary to lasix given yesterday - will d/c -Monitor renal/lytes -avoid nephrotoxic meds (6) Elevated brain natriuretic peptide (BNP) level Current Visit: Yes Status: Acute Assessment & Plan: -no h/o CHF -BNP reviewed and elevated at 2570 -Obtain echo 08/24: -TRANSTHORACIC ECHOCARDIOGRAM 08/23/2024: Reviewed 1. Normal chamber sizes. 2. Mild concentric left ventricular hypertrophy. 3. Normal left ventricular systolic function without focal wall motion abnormalities. Estimated EF 60%. 4. Mild diastolic dysfunction. 5. Normal right ventricular systolic function. 6. Mild aortic sclerosis without stenosis. 7. Doppler: No significant valvular regurgitation. 8. Mildly calcified aortic root. 9. Normal PA pressure. 10. Normal right atrial pressure. 11. No pericardial effusion. Code(s): R79.89 - OTHER SPECIFIED ABNORMAL FINDINGS OF BLOOD CHEMISTRY Code(s): J44.1 - CHRONIC OBSTRUCTIVE PULMONARY DISEASE W (ACUTE) EXACERBATION (2) Shortness of breath Current Visit: Yes Status: Acute Code(s): R06.02 - SHORTNESS OF BREATH (3) Hypertensive chronic kidney disease with stage 1 through stage 4 chronic kidney disease, or unspecified chronic kidney disease Current Visit: Yes Status: Acute Code(s): I12.9 - HYPERTENSIVE CHRONIC KIDNEY DISEASE W STG 1-4/UNSP CHR KDNY (4) UTI (urinary tract infection) Current Visit: Yes Status: Acute Code(s): N39.0 - URINARY TRACT INFECTION, SITE NOT SPECIFIED (5) Acute renal failure Current Visit: No Status: Acute (6) Elevated brain natriuretic peptide (BNP) level Current Visit: Yes Status: Acute Code(s): R79.89 - OTHER SPECIFIED ABNORMAL FINDINGS OF BLOOD CHEMISTRY
[2024-08-24 06:02] LABS: Hematocrit 33.8 % (34.1-44.9); Hemoglobin 10.3 g/dL (11.2-15.7); Mean Cell Volume 94.9 fL (79.4-94.8); Mean Corpuscular Hemoglobin 28.9 pg (25.6-32.2); Mean Corpuscular Hgb Concent. 30.5 g/dL (32.2-35.5); Mean Platelet Volume 10.9 fL (9.4-12.3); Platelet Count 233 x10^3/uL (182-369); Red Blood Count 3.56 x10^6/uL (3.93-5.22); Red Cell Distribution Width 14.2 % (11.7-14.4); White Blood Count 16.6 x10^3/uL (3.98-10.04)
[2024-08-24] MEDS ORDERED: solu-MEDROL ONE (06:09)
[2024-08-24 06:21] LABS: ALBUMIN 3.5 g/dL (3.5-5.0); ANION GAP 13.3 MEQ/L (5-15); BILIRUBIN,TOTAL 0.2 mg/dL (0.2-1.3); Calcium 9.2 mg/dL (8.4-10.2); Creatinine 1 2.01 mg/dL (0.52-1.04); EST GLOMERULAR FILTRATION RATE 24.8 ML/MIN; Potassium 4.7 mmol/L (3.5-5.1); Total Protein 6.1 g/dL (6.3-8.2)
--- NOTE | 2024-08-24 11:07 | XRAY ---
Indication: Short of breath. Multiple contiguous axial images obtained through the chest without contrast. Comparison: September 05, 2019 Chest remains elongated in the AP dimension. Lungs again demonstrates minimal bibasilar and lingula subsegmental atelectasis/scarring. Stable incidental small left upper lobe calcified granuloma. No suspicious pulmonary mass/nodule, infiltrate, or effusion. Heart remains enlarged again with scattered coronary calcifications. Aorta remains mildly arteriosclerotic without aneurysm. Stable chunky left suprahilar and small left perihilar/subcarinal calcified nodes. No pathologic mediastinal lymphadenopathy. Bony thorax again demonstrates osteopenia and mild degenerative changes throughout spine. New minimal/mild multilevel remote appearing thoracic compression deformities, greatest T12 with approximately 50% height loss with subsequent accentuated thoracic kyphosis. Also new remote appearing fractures sternum and left 5 rib. Limited upper abdomen demonstrates new bilateral renal atrophy and 2.7 cm incompletely visualized left mid renal exophytic cyst. Again a few tiny hepatic/splenic calcified granulomas. Impression: 1. Chronic findings including bilateral subsegmental atelectasis/scarring, cardiomegaly, arteriosclerotic disease, chronic bony findings, and old granulomatous disease. 2. New bilateral renal atrophy and incompletely visualized left renal cyst. 3. No acute findings on this noncontrast exam.
[2024-08-24] MEDS: Pepcid 20 MG PO SCH (17:56)
[2024-08-24 21:21] LABS: A-aADO2 86; ABG HEMOGLOBIN 12.2; ABG POTASSIUM 4.3 (3.5-5.1); ABG SITE RIGHT RADIAL; ALLEN TEST OK? YES; ARTERIAL BLOOD GAS BASE EXCESS -0.6 (-2.0-2.0); ARTERIAL BLOOD GAS FIO2 32 %; ARTERIAL BLOOD GAS PCO2 49 mmHg (35-45); ARTERIAL BLOOD GAS PO2 81 mmHg (75-100); ARTERIAL BLOOD GAS pH 7.33 (7.35-7.45); CARBOXYHEMOGLOBIN 0.5 % THgb (0.0-6.9); HCO3- 25.8 (22-28); HGB O2 SAT 95.4 g/dF (94-100); Methhemoglobin 1.3 % (1.4-1.5); paO2 pAO1 0.49
--- NOTE | 2024-08-25 05:09 | PCM.NOTE ---
Date and Time: 08/25/24 0508 Subjective Assessment: Ms. RAMSEY is a 79 year old female with a past medical history significant for carotid stenosis, hypertension, hyperlipidemia, hypothyroidism and COPD admitted 08/22/24 with shortness of breath and COPD exacerbation after presenting to ED with complaints of progressive dyspnea and hemoptysis. Labs remarkable for leukocytosis, BNP elevated at 2570, creat mildly elevated at 1.22 (baseline around 1.2-1.4) and UA suspicious for infection. 08/23: Met with patient bedside. Endorses cough with white sputum, wheezing, and shortness of breath. States this has been going on for approximately 1-2 weeks with progressive worsening. No fever or recent sick contacts. On her baseline oxygen of 3L. Denies fever,cp, abdominal pain, HERNANDEZ, dizziness, N/V/D. 08/24: Patient with increased oxygen requirements overnight, now on 5L >3L. Patient states that her dyspnea and cough have improved. Lung sounds coarse with exp wheezing on auscultation. Ucult growing gram -. WBC and Creat elevated. Patient has been receiving steroids and lasix which could account for these elevations. Will continue with ceftriaxone and azithromycin for now. Sputum culture pending. Denies fever, cp, abdominal pain, HERNANDEZ, dizziness, N/V/D. 08/25/24: Endorses heart burn this morning and shakiness following nebulizer treatments. Dyspnea improved with oxygen requirements now at 3L<5L. Denies fever, cp, abdominal pain, HERNANDEZ, dizziness, N/V/D. Ativan has helped shakiness. Will decrease steroids, add carafate/mylanta. - Review of Systems Constitutional: No Symptoms Eyes: No Symptoms Ears, Nose, & Throat: No Symptoms Respiratory: Cough, Short Of Breath, Wheezing Cardiac: No Symptoms Abdominal/Gastrointestinal: No Symptoms Genitourinary Symptoms: No Symptoms, Other (reflux) Musculoskeletal: No Symptoms Skin: No Symptoms Neurological: No Symptoms Psychological: No Symptoms Endocrine: No Symptoms Hematologic/Lymphatic: No Symptoms Immunological/Allergic: No Symptoms Objective Exam General Appearance: no apparent distress Neurologic Exam: alert, oriented x 3, cooperative Skin Exam: normal color Eye Exam: PERRL Ears, Nose, Throat Exam: normal ENT inspection Neck Exam: normal inspection Respiratory Exam: diminished breath sounds, crackles/rales Cardiovascular Exam: regular rate/rhythm, normal heart sounds Gastrointestinal/Abdomen Exam: soft, normal bowel sounds Extremity Exam: normal inspection Back Exam: normal inspection Pelvic Exam: deferred Rectal Exam: deferred Objective Data Vital Signs: Vital Signs - 24 hr Temp Pulse Resp BP Pulse Ox 08/25/24 04:00 97.5 F 95 H 20 157/74 93 L 08/25/24 01:06 108 H 28 H 96 08/25/24 00:07 91 H 23 100 08/24/24 19:35 97.9 F 80 20 149/67 93 L 08/24/24 15:00 97.5 F 101 H 18 143/67 96 08/24/24 11:43 65 14 93 L 08/24/24 11:00 97.9 F 81 26 H 133/63 94 L 08/24/24 06:53 97.5 F 84 18 132/60 95 08/24/24 05:10 88 22 94 L Pain Assessment - Last Documented Pain Intensity 0 Pain Scale Used 0-10 Pain Scale Intake and Output: Intake & Output 08/22/24 08/23/24 08/24/24 08/25/24 11:59 11:59 11:59 11:59 Intake Total 460 520 240 Output Total 600 200 Balance -140 320 240 Weight 69.4 kg 70 kg Lab Results: Lab Results-Last 24 Hours 08/24/24 08/24/24 08/24/24 Range/Units 05:54 05:54 20:55 WBC 16.6 H (3.98-10.04) x10^3/uL RBC 3.56 L (3.93-5.22) x10^6/uL Hgb 10.3 L (11.2-15.7) g/dL Hct 33.8 L (34.1-44.9) % MCV 94.9 H (79.4-94.8) fL MCH 28.9 (25.6-32.2) pg MCHC 30.5 L (32.2-35.5) g/dL RDW 14.2 (11.7-14.4) % Plt Count 233 (182-369) x10^3/uL MPV 10.9 (9.4-12.3) fL Puncture Site pCO2 (35-45) mmHg pO2 (75-100) mmHg Base Excess (-2.0-2.0) O2 Saturation (94-100) g/dF ABG pH (7.35-7.45) ABG HCO3 (22-28) ABG O2 Sat (Measured) (95-100) % Feliz Test A-a Gradient a/A Ratio Hemoglobin Carboxyhemoglobin (0.0-6.9) % THgb Methemoglobin (1.4-1.5) % Temperature C POC O2 Flow Rate % Sodium 141 (135-145) mmol/L Potassium 4.7 (3.5-5.1) mmol/L Chloride 104 (98-107) mmol/L Carbon Dioxide 28 (22-30) mmol/L Anion Gap 13.3 (5-15) MEQ/L BUN 44 H (7-17) mg/dL Creatinine 2.01 H (0.52-1.04) mg/dL Estimated GFR 24.8 ML/MIN Glucose 141 H (74-106) mg/dL Calcium 9.2 (8.4-10.2) mg/dL Total Bilirubin 0.20 (0.2-1.3) mg/dL AST 18 (14-36) U/L ALT 13 (0-35) U/L Alkaline Phosphatase 59 (38-126) U/L Troponin I < 0.012 (0.000-0.033) ng/mL Serum Total Protein 6.1 L (6.3-8.2) g/dL Albumin 3.5 (3.5-5.0) g/dL 08/24/24 Range/Units 21:10 WBC (3.98-10.04) x10^3/uL RBC (3.93-5.22) x10^6/uL Hgb (11.2-15.7) g/dL Hct (34.1-44.9) % MCV (79.4-94.8) fL MCH (25.6-32.2) pg MCHC (32.2-35.5) g/dL RDW (11.7-14.4) % Plt Count (182-369) x10^3/uL MPV (9.4-12.3) fL Puncture Site RIGHT RADIAL pCO2 49 H (35-45) mmHg pO2 81 (75-100) mmHg Base Excess -0.6 (-2.0-2.0) O2 Saturation 95.4 (94-100) g/dF ABG pH 7.33 L (7.35-7.45) ABG HCO3 25.8 (22-28) ABG O2 Sat (Measured) 97.0 (95-100) % Feliz Test YES A-a Gradient 86 a/A Ratio 0.49 Hemoglobin 12.2 Carboxyhemoglobin 0.5 (0.0-6.9) % THgb Methemoglobin 1.3 L (1.4-1.5) % Temperature 37.0 C POC O2 Flow Rate 32 % Sodium (135-145) mmol/L Potassium 4.3 (3.5-5.1) mmol/L Chloride (98-107) mmol/L Carbon Dioxide (22-30) mmol/L Anion Gap (5-15) MEQ/L BUN (7-17) mg/dL Creatinine (0.52-1.04) mg/dL Estimated GFR ML/MIN Glucose (74-106) mg/dL Calcium (8.4-10.2) mg/dL Total Bilirubin (0.2-1.3) mg/dL AST (14-36) U/L ALT (0-35) U/L Alkaline Phosphatase (38-126) U/L Troponin I (0.000-0.033) ng/mL Serum Total Protein (6.3-8.2) g/dL Albumin (3.5-5.0) g/dL Radiology Exams: Radiology Procedures Category Date Time Status CHEST 1 VIEW (PORTABLE) Stat Exams 08/24/24 20:50 Taken CHEST WITHOUT CONTRAST [CT] Routine Exams 08/24/24 08:33 Completed ECHO W/2D AND DOPPLER [US] Routine Exams 08/23/24 07:00 Taken PULMONARY PERF PARTICULATE [NUCMED] Routine Exams 08/25/24 08:00 Ordered Multi-Disciplinary Progress Notes: Multi-Disciplinary Progress Notes 08/24/24 10:38 Case Management Note by Mleody Kitchen S/W PATIENT- SHE CONTINUES TO DENY ANY NEW NEEDS AT TIME OF DC. SHE PLANS TO RETURN HOME TO HER PLF WITH HER TO ASSIST HER. PATIENT ALREADY SET UP WITH 24 HR OXYGEN WITH PORTABILITY Initialized on 08/24/24 10:38 - END OF NOTE Assessment/Plan (1) COPD exacerbation Current Visit: Yes Status: Acute Assessment & Plan: -Rocephin initiated -will continue add azithromycin -Nebs/inh -RT eval and follow -Supplemental oxygen with spo2 goal 89-92% -sputum culture pending -cxr with no acute findings -steroids - solumedrol -ABG if significant lethary/hypoxia -consider CT if no improvement 08/24: -DDImer at 0.55 -sputum culture pending -continue abx/steroids -Advair -On 5L -CT chest w/o contrast with no acute findings infiltrates, effusions or mass 08/25: -VQ scan today -oxygen down to 3L- baseline -solumedrol decreased to daily -Ativan prn -NEBs prn -continue abx - Will switch to levaquin on discharge -CMP/CBC reviewed Code(s): J44.1 - CHRONIC OBSTRUCTIVE PULMONARY DISEASE W (ACUTE) EXACERBATION (2) Shortness of breath Current Visit: Yes Status: Acute Assessment & Plan: -secondary to COPD exac - see plan above Code(s): R06.02 - SHORTNESS OF BREATH (3) Hypertensive chronic kidney disease with stage 1 through stage 4 chronic kidney disease, or unspecified chronic kidney disease Current Visit: Yes Status: Acute Assessment & Plan: -Stable, continue home meds - monitor Code(s): I12.9 - HYPERTENSIVE CHRONIC KIDNEY DISEASE W STG 1-4/UNSP CHR KDNY (4) UTI (urinary tract infection) Current Visit: Yes Status: Acute Assessment & Plan: -urine suspicious for UTI, on ceftriaxone, Ucult growing gram - ID -will follow culture VTE: lovenox PPI: Protonix Dispo: 1-2 days Code(s): N39.0 - URINARY TRACT INFECTION, SITE NOT SPECIFIED (5) Acute renal failure Current Visit: No Status: Acute Assessment & Plan: -baseline reviewed based on previous lab work around 1.2-1.4 -Reviewed CMP - creat at 1.61 today - most likely secondary to lasix given yesterday - will d/c -Monitor renal/lytes -avoid nephrotoxic meds 08/25: -CMP reviewed, creat now at baseline of 1.42 GERD -protonix/pepcid -Add carafate/mylanta (6) Elevated brain natriuretic peptide (BNP) level Current Visit: Yes Status: Acute Assessment & Plan: -no h/o CHF -BNP reviewed and elevated at 2570 -Obtain echo 08/24: -TRANSTHORACIC ECHOCARDIOGRAM 08/23/2024: Reviewed 1. Normal chamber sizes. 2. Mild concentric left ventricular hypertrophy. 3. Normal left ventricular systolic function without focal wall motion abnormalities. Estimated EF 60%. 4. Mild diastolic dysfunction. 5. Normal right ventricular systolic function. 6. Mild aortic sclerosis without stenosis. 7. Doppler: No significant valvular regurgitation. 8. Mildly calcified aortic root. 9. Normal PA pressure. 10. Normal right atrial pressure. 11. No pericardial effusion. Code(s): R79.89 - OTHER SPECIFIED ABNORMAL FINDINGS OF BLOOD CHEMISTRY Code(s): J44.1 - CHRONIC OBSTRUCTIVE PULMONARY DISEASE W (ACUTE) EXACERBATION (2) Shortness of breath Current Visit: Yes Status: Acute Code(s): R06.02 - SHORTNESS OF BREATH (3) Hypertensive chronic kidney disease with stage 1 through stage 4 chronic kidney disease, or unspecified chronic kidney disease Current Visit: Yes Status: Acute Code(s): I12.9 - HYPERTENSIVE CHRONIC KIDNEY DISEASE W STG 1-4/UNSP CHR KDNY (4) UTI (urinary tract infection) Current Visit: Yes Status: Acute Code(s): N39.0 - URINARY TRACT INFECTION, SITE NOT SPECIFIED (5) Acute renal failure Current Visit: No Status: Acute (6) Elevated brain natriuretic peptide (BNP) level Current Visit: Yes Status: Acute Code(s): R79.89 - OTHER SPECIFIED ABNORMAL FINDINGS OF BLOOD CHEMISTRY (7) GERD (gastroesophageal reflux disease) Current Visit: Yes Status: Acute Code(s): K21.9 - GASTRO-ESOPHAGEAL REFLUX DISEASE WITHOUT ESOPHAGITIS
[2024-08-25] MEDS ORDERED: solu-MEDROL ONE ×2 (05:49→09:52)
[2024-08-25 05:50] LABS: Hematocrit 34.9 % (34.1-44.9); Hemoglobin 10.7 g/dL (11.2-15.7); Mean Cell Volume 94.1 fL (79.4-94.8); Mean Corpuscular Hemoglobin 28.8 pg (25.6-32.2); Mean Corpuscular Hgb Concent. 30.7 g/dL (32.2-35.5); Mean Platelet Volume 10.9 fL (9.4-12.3); Platelet Count 274 x10^3/uL (182-369); Red Blood Count 3.71 x10^6/uL (3.93-5.22); Red Cell Distribution Width 14.3 % (11.7-14.4); White Blood Count 17.5 x10^3/uL (3.98-10.04)
[2024-08-25 06:04] LABS: ALBUMIN 3.5 g/dL (3.5-5.0); ANION GAP 15.2 MEQ/L (5-15); BILIRUBIN,TOTAL 0.3 mg/dL (0.2-1.3); Calcium 9.4 mg/dL (8.4-10.2); Creatinine 1 1.42 mg/dL (0.52-1.04); EST GLOMERULAR FILTRATION RATE 37.6 ML/MIN; Potassium 4.4 mmol/L (3.5-5.1)
[2024-08-25] MEDS ORDERED: Ativan 2 MG/1 ML VIAL IM PRN (08:27)
[2024-08-25] MEDS: Ativan 2 MG/1 ML VIAL IV PRN (08:35)
--- NOTE | 2024-08-25 08:37 | XRAY ---
Indication: Short of breath. Chest pain. Comparison: August 14, 2024 Portable chest unchanged again demonstrate chronic lung markings, left base calcified pleural plaquing, cardiomegaly with aortic calcifications, and chunky left hilar calcified nodes. Bony thorax intact again with osteopenia, degenerative changes, and scoliosis. No new/acute findings.
[2024-08-25] MEDS: solu-MEDROL 40 MG, Sterile H2O 10 ml 1 ML IV SCH (10:10)
[2024-08-25] MEDS: Carafate 1 GM PO ONE (12:02)
[2024-08-25] MEDS ORDERED: MAALOX ES 30 ML UNIT DOSE PO PRN (14:52)
--- NOTE | 2024-08-25 14:57 | XRAY ---
Indication: Short of breath. Elevated d-dimer. Comparison: None. Patient received 5.9 mCi technetium 99 MAA for the perfusion portion of the exam. Patient inhaled 37.6 mCi aerosolized technetium 99 DTPA for the ventilation. Multiple planar images obtained. Perfusion images demonstrates demonstrates homogeneous radiopharmaceutical activity without segmental/subsegmental perfusion defects. Ventilation images demonstrates diminished radiopharmaceutical activity in both lungs. Radiopharmaceutical activity is predominantly more central favoring chronic obstructive disease. Incidental small amount of ingested radiopharmaceutical activity in GI system. Impression: No perfusion defects. Ventilation images demonstrates central radiopharmaceutical activity favoring chronic obstructive disease. PIOPED criteria for pulmonary embolus is normal scan.
--- NOTE | 2024-08-25 15:11 | XRAY ---
Indication: Short of breath. Chest pain. Nuclear medicine VQ protocol. Comparison: PCXR and CT chest one day earlier. PA/lateral chest unchanged again demonstrating chronic lung markings, left base calcified pleural plaquing, cardiomegaly with aortic calcifications, and chunky left hilar calcified nodes. No new/acute cardiopulmonary abnormalities.
[2024-08-25] MEDS: Carafate 1 GM PO SCH (16:31)
[2024-08-25] MEDS: PHARMACY DOSING REQUEST MC ONE (16:49)
[2024-08-25] MEDS: DUONEB 0.5-3 MG/3 ml Neb IH PRN (19:32)
[2024-08-26 04:38] LABS: Absolute Neutrophil Ct (ANC) 16.99 x10^3/uL (1.56-6.13); BASOPHIL % 0.4 % (0.1-1.2); Basophil (Absolute #) 0.07 x10^3/uL (0.01-0.08); Eosinophil % 0.1 % (0.7-5.8); Eosinophil (Absolute #) 0.02 x10^3/uL (0.04-0.36); Hematocrit 38.5 % (34.1-44.9); Hemoglobin 11.7 g/dL (11.2-15.7); IMMATURE GRAN # 0.49 x10^3u/L (0.001-0.031); IMMATURE GRAN % 2.5 % (0.001-0.429); Lymphocyte (Absolute #) 0.87 x10^3/uL (1.18-3.74); Lymphocytes % 4.4 % (19.3-51.7); Mean Cell Volume 94.4 fL (79.4-94.8); Mean Corpuscular Hemoglobin 28.7 pg (25.6-32.2); Mean Corpuscular Hgb Concent. 30.4 g/dL (32.2-35.5); Mean Platelet Volume 10.6 fL (9.4-12.3); Monocyte (Absolute #) 1.38 x10^3/uL (0.24-0.86); Neutrophil % 85.6 % (34.0-71.1); Platelet Count 353 x10^3/uL (182-369); Red Blood Count 4.08 x10^6/uL (3.93-5.22); Red Cell Distribution Width 14.5 % (11.7-14.4); White Blood Count 19.8 x10^3/uL (3.98-10.04)
[2024-08-26 04:53] LABS: ALBUMIN 3.9 g/dL (3.5-5.0); ANION GAP 13.6 MEQ/L (5-15); BILIRUBIN,TOTAL 0.3 mg/dL (0.2-1.3); Creatinine 1 1.27 mg/dL (0.52-1.04); Potassium 4.3 mmol/L (3.5-5.1); Total Protein 6.7 g/dL (6.3-8.2)
--- NOTE | 2024-08-26 11:40 | PCM.NOTE ---
Date and Time: 08/26/24 1133 Subjective Assessment: Ms. RAMSEY is a 79 year old female with a past medical history significant for carotid stenosis, hypertension, hyperlipidemia, hypothyroidism and COPD admitted 08/22/24 with shortness of breath and COPD exacerbation after presenting to ED with complaints of progressive dyspnea and hemoptysis. Labs remarkable for leukocytosis, BNP elevated at 2570, creat mildly elevated at 1.22 (baseline around 1.2-1.4) and UA suspicious for infection. 08/23: Met with patient bedside. Endorses cough with white sputum, wheezing, and shortness of breath. States this has been going on for approximately 1-2 weeks with progressive worsening. No fever or recent sick contacts. On her baseline oxygen of 3L. Denies fever,cp, abdominal pain, HERNANDEZ, dizziness, N/V/D. 08/24: Patient with increased oxygen requirements overnight, now on 5L >3L. Patient states that her dyspnea and cough have improved. Lung sounds coarse with exp wheezing on auscultation. Ucult growing gram -. WBC and Creat elevated. Patient has been receiving steroids and lasix which could account for these elevations. Will continue with ceftriaxone and azithromycin for now. Sputum culture pending. Denies fever, cp, abdominal pain, HERNANDEZ, dizziness, N/V/D. 08/25/24: Endorses heart burn this morning and shakiness following nebulizer treatments. Dyspnea improved with oxygen requirements now at 3L<5L. Denies fever, cp, abdominal pain, HERNANDEZ, dizziness, N/V/D. Ativan has helped shakiness. Will decrease steroids, add carafate/mylanta. 08/26/24: Patient feeling much better today. Dyspnea and cough have improved. Shakiness and heartburn have resolved. She is at her baseline oxygen. Lung sounds with improved aeration on auscultation. No wheezing. Plan to continue current abx/steroid therapy, most likely can discharge tomorrow. - Review of Systems Constitutional: No Symptoms Eyes: No Symptoms Ears, Nose, & Throat: No Symptoms Respiratory: Cough, Short Of Breath Cardiac: No Symptoms Abdominal/Gastrointestinal: No Symptoms Genitourinary Symptoms: No Symptoms Musculoskeletal: No Symptoms Skin: No Symptoms Neurological: No Symptoms Psychological: No Symptoms Endocrine: No Symptoms Hematologic/Lymphatic: No Symptoms Immunological/Allergic: No Symptoms Objective Exam General Appearance: no apparent distress Neurologic Exam: alert, oriented x 3, cooperative Skin Exam: normal color Eye Exam: PERRL Ears, Nose, Throat Exam: normal ENT inspection Neck Exam: normal inspection Respiratory Exam: diminished breath sounds, crackles/rales Cardiovascular Exam: regular rate/rhythm, normal heart sounds Gastrointestinal/Abdomen Exam: soft, normal bowel sounds Extremity Exam: normal inspection Back Exam: normal inspection Pelvic Exam: deferred Rectal Exam: deferred Objective Data Vital Signs: Vital Signs - 24 hr Temp Pulse Resp BP Pulse Ox 08/26/24 07:47 97.3 F 62 22 156/83 94 L 08/26/24 06:57 84 18 94 L 08/26/24 04:00 98.2 F 109 H 24 174/80 100 08/25/24 23:43 97.8 F 107 H 27 H 127/67 97 08/25/24 20:00 97.3 F 117 H 25 H 121/66 100 08/25/24 19:35 96 H 24 94 L 08/25/24 16:00 98.5 F 103 H 16 143/66 94 L 08/25/24 11:54 97.6 F 101 H 16 141/63 98 Pain Assessment - Last Documented Pain Intensity 0 Pain Scale Used [facility] Intake and Output: Intake & Output 08/23/24 08/24/24 08/25/24 08/26/24 11:59 11:59 11:59 11:59 Intake Total 460 520 480 360 Output Total 600 200 350 Balance -140 320 130 360 Weight 69.4 kg 70 kg 70.2 kg 69.8 kg Lab Results: Lab Results-Last 24 Hours 08/26/24 08/26/24 08/26/24 Range/Units 04:30 04:30 05:20 WBC 19.8 H (3.98-10.04) x10^3/uL RBC 4.08 (3.93-5.22) x10^6/uL Hgb 11.7 (11.2-15.7) g/dL Hct 38.5 (34.1-44.9) % MCV 94.4 (79.4-94.8) fL MCH 28.7 (25.6-32.2) pg MCHC 30.4 L (32.2-35.5) g/dL RDW 14.5 H (11.7-14.4) % Plt Count 353 (182-369) x10^3/uL MPV 10.6 (9.4-12.3) fL Gran % 85.6 H (34.0-71.1) % Immature Gran % (Auto) 2.5 H (0.001-0.429) % Nucleat RBC Rel Count 0.0 (0.00-0.2) % Eos # (Auto) 0.02 L (0.04-0.36) x10^3/uL Immature Gran # (Auto) 0.49 H (0.001-0.031) x10^3u/L Absolute Lymphs (auto) 0.87 L (1.18-3.74) x10^3/uL Absolute Monos (auto) 1.38 H (0.24-0.86) x10^3/uL Absolute Nucleated RBC 0.00 (0.00-0.012) x10^3u/L Lymphocytes % 4.4 L (19.3-51.7) % Monocytes % 7.0 (4.7-12.5) % Eosinophils % 0.1 L (0.7-5.8) % Basophils % 0.4 (0.1-1.2) % Absolute Granulocytes 16.99 H (1.56-6.13) x10^3/uL Basophils # 0.07 (0.01-0.08) x10^3/uL Sodium 144 (135-145) mmol/L Potassium 4.3 (3.5-5.1) mmol/L Chloride 106 (98-107) mmol/L Carbon Dioxide 29 (22-30) mmol/L Anion Gap 13.6 (5-15) MEQ/L BUN 42 H (7-17) mg/dL Creatinine 1.27 H (0.52-1.04) mg/dL Estimated GFR 43.0 ML/MIN Glucose 104 (74-106) mg/dL Calcium 10.0 (8.4-10.2) mg/dL Total Bilirubin 0.30 (0.2-1.3) mg/dL AST 34 (14-36) U/L ALT 35 (0-35) U/L Alkaline Phosphatase 58 (38-126) U/L Serum Total Protein 6.7 (6.3-8.2) g/dL Albumin 3.9 (3.5-5.0) g/dL Procalcitonin 0.106 H (0.030-0.080) ng/mL Radiology Exams: Radiology Procedures Category Date Time Status CHEST 1 VIEW (PORTABLE) Stat Exams 08/24/24 20:50 Completed CHEST 2 VIEWS (PA AND LAT) Routine Exams 08/25/24 12:49 Completed PULMONARY PERF PARTICULATE [NUCMED] Routine Exams 08/25/24 08:00 Completed Multi-Disciplinary Progress Notes: Multi-Disciplinary Progress Notes 08/26/24 09:28 Case Management Note by Melody Kitchen Addendum entered by Melody Kitchen 08/26/24 09:29: PATIENT ALREADY HAS HOME OXYGEN WITH PORTABILITY WELL Original Note: S/W PATIENT AND - SHE CONTINUES TO PLAN TO DC HOME AT TIME OF DC. SHE AND HER REPORT THEY HAVE SEVERAL CHILDREN READILY AVAILABLE TO HELP NEEDED. THEY DECLINE C SERVICES AT THIS TIME WELL Initialized on 08/26/24 09:28 - END OF NOTE 08/25/24 13:39 Case Management Note by Melody Kitchen NO CHANGE IN DC PLANS AT THIS TIME Initialized on 08/25/24 13:39 - END OF NOTE Assessment/Plan (1) COPD exacerbation Current Visit: Yes Status: Acute Assessment & Plan: -Rocephin initiated -will continue add azithromycin -Nebs/inh -RT eval and follow -Supplemental oxygen with spo2 goal 89-92% -sputum culture pending -cxr with no acute findings -steroids - solumedrol -ABG if significant lethary/hypoxia -consider CT if no improvement 08/24: -DDImer at 0.55 -sputum culture pending -continue abx/steroids -Advair -On 5L -CT chest w/o contrast with no acute findings infiltrates, effusions or mass 08/25: -VQ scan today -oxygen down to 3L- baseline -solumedrol decreased to daily -Ativan prn -NEBs prn -continue abx - Will switch to levaquin on discharge -CMP/CBC reviewed 08/26/24: -aeration improved- at baseline oxygen 3L -Reviewed CT and VQ scan- no acute findings of PE or infectious process -Continue ceftriaxone for UTI/ azithromycin, switch to oral prednisone from solumedrol -CBC reviewed with increase WBC - most likely secondary to steroids - will trend -Sputum culture reviewed and pending Code(s): J44.1 - CHRONIC OBSTRUCTIVE PULMONARY DISEASE W (ACUTE) EXACERBATION (2) Shortness of breath Current Visit: Yes Status: Acute Assessment & Plan: -secondary to COPD exac - see plan above Code(s): R06.02 - SHORTNESS OF BREATH (3) Hypertensive chronic kidney disease with stage 1 through stage 4 chronic kidney disease, or unspecified chronic kidney disease Current Visit: Yes Status: Acute Assessment & Plan: -Stable, continue home meds - monitor Code(s): I12.9 - HYPERTENSIVE CHRONIC KIDNEY DISEASE W STG 1-4/UNSP CHR KDNY (4) UTI (urinary tract infection) Current Visit: Yes Status: Acute Assessment & Plan: -urine suspicious for UTI, on ceftriaxone, -Ucult reviewed showing ecoli -diaz sensitive - continue ceftriaxone VTE: lovenox PPI: Protonix Dispo: 1-2 days Code(s): N39.0 - URINARY TRACT INFECTION, SITE NOT SPECIFIED (5) Acute renal failure Current Visit: No Status: Acute Assessment & Plan: -baseline reviewed based on previous lab work around 1.2-1.4 -Reviewed CMP - creat at 1.61 today - most likely secondary to lasix given yesterday - will d/c -Monitor renal/lytes -avoid nephrotoxic meds 08/25: -CMP reviewed, creat now at baseline of 1.42 GERD -protonix/pepcid -Add carafate/mylanta (6) Elevated brain natriuretic peptide (BNP) level Current Visit: Yes Status: Acute Assessment & Plan: -no h/o CHF -BNP reviewed and elevated at 2570 -Obtain echo 08/24: -TRANSTHORACIC ECHOCARDIOGRAM 08/23/2024: Reviewed 1. Normal chamber sizes. 2. Mild concentric left ventricular hypertrophy. 3. Normal left ventricular systolic function without focal wall motion abnormalities. Estimated EF 60%. 4. Mild diastolic dysfunction. 5. Normal right ventricular systolic function. 6. Mild aortic sclerosis without stenosis. 7. Doppler: No significant valvular regurgitation. 8. Mildly calcified aortic root. 9. Normal PA pressure. 10. Normal right atrial pressure. 11. No pericardial effusion. Code(s): R79.89 - OTHER SPECIFIED ABNORMAL FINDINGS OF BLOOD CHEMISTRY Code(s): J44.1 - CHRONIC OBSTRUCTIVE PULMONARY DISEASE W (ACUTE) EXACERBATION (2) Shortness of breath Current Visit: Yes Status: Acute Code(s): R06.02 - SHORTNESS OF BREATH (3) Hypertensive chronic kidney disease with stage 1 through stage 4 chronic kidney disease, or unspecified chronic kidney disease Current Visit: Yes Status: Acute Code(s): I12.9 - HYPERTENSIVE CHRONIC KIDNEY DISEASE W STG 1-4/UNSP CHR KDNY (4) UTI (urinary tract infection) Current Visit: Yes Status: Acute Code(s): N39.0 - URINARY TRACT INFECTION, SITE NOT SPECIFIED (5) Acute renal failure Current Visit: No Status: Acute (6) Elevated brain natriuretic peptide (BNP) level Current Visit: Yes Status: Acute Code(s): R79.89 - OTHER SPECIFIED ABNORMAL FINDINGS OF BLOOD CHEMISTRY (7) GERD (gastroesophageal reflux disease) Current Visit: Yes Status: Acute Code(s): K21.9 - GASTRO-ESOPHAGEAL REFLUX DISEASE WITHOUT ESOPHAGITIS
[2024-08-26] MEDS: DELTASONE 20 MG PO SCH (21:31)
[2024-08-27 06:33] LABS: Absolute Neutrophil Ct (ANC) 14.05 x10^3/uL (1.56-6.13); BASOPHIL % 0.3 % (0.1-1.2); Basophil (Absolute #) 0.05 x10^3/uL (0.01-0.08); Eosinophil % 0.4 % (0.7-5.8); Eosinophil (Absolute #) 0.07 x10^3/uL (0.04-0.36); Hematocrit 38.9 % (34.1-44.9); Hemoglobin 11.7 g/dL (11.2-15.7); IMMATURE GRAN # 0.53 x10^3u/L (0.001-0.031); IMMATURE GRAN % 3.3 % (0.001-0.429); Lymphocyte (Absolute #) 0.69 x10^3/uL (1.18-3.74); Lymphocytes % 4.3 % (19.3-51.7); Mean Cell Volume 94.9 fL (79.4-94.8); Mean Corpuscular Hemoglobin 28.5 pg (25.6-32.2); Mean Corpuscular Hgb Concent. 30.1 g/dL (32.2-35.5); Mean Platelet Volume 10.3 fL (9.4-12.3); Monocyte (Absolute #) 0.84 x10^3/uL (0.24-0.86); Monocytes % 5.2 % (4.7-12.5); Neutrophil % 86.5 % (34.0-71.1); Platelet Count 264 x10^3/uL (182-369); Red Cell Distribution Width 13.8 % (11.7-14.4); White Blood Count 16.2 x10^3/uL (3.98-10.04)
[2024-08-27 06:52] LABS: ALBUMIN 3.7 g/dL (3.5-5.0); ANION GAP 8.4 MEQ/L (5-15); BILIRUBIN,TOTAL 0.4 mg/dL (0.2-1.3); Calcium 9.7 mg/dL (8.4-10.2); Creatinine 1 1.04 mg/dL (0.52-1.04); EST GLOMERULAR FILTRATION RATE 54.7 ML/MIN; Potassium 4.7 mmol/L (3.5-5.1); Total Protein 6.3 g/dL (6.3-8.2)
[2024-08-27 06:58] VITALS: BP 165/95; TEMP 97.1; O2SAT 94
[2024-08-27 07:15] VITALS: PULSE 89; RESP 16
[2024-08-27] MEDS ORDERED: CINACALCET HCL 30 MG PO SCH (09:00)
--- NOTE | 2024-08-27 09:08 | PCM.DS ---
Discharge Summary Date of Admission: 08/23/24 15:30 Date of Discharge: 08/27/24 Admitting Physician: KATIE MARS MD Primary Care Provider: MIKE ALY Allergies Allergies No Known Drug Allergies Allergy (Verified 08/22/24 20:58) Hospital Summary - Hospital Course Hospital Course: Ms. RAMSEY is a 79 year old female with a past medical history significant for carotid stenosis, hypertension, hyperlipidemia, hypothyroidism and COPD admitted 08/22/24 with shortness of breath and COPD exacerbation after presenting to ED with complaints of progressive dyspnea and hemoptysis. Initial abs remarkable for leukocytosis, BNP elevated at 2570, creat mildly elevated at 1.22 (baseline around 1.2-1.4) and UA suspicious for infection. CXR, VQ scan and CT with no acute findings. No PE. Ucult with Ecoli. IP treament with steroids, ceftriaxone/azithromycin. Patient requiring 5L of oxygen during her hospital course. Now at 3L which is her baseline. No further hemoptysis. Dyspnea and cough improved. No wheezing on auscultation. Patient is stable for discharge home. She will discharge home on cefuroxime and prednisone. Patient does have a nebulizer. Will send out dounebs. Will send out Robutussin AC to help with cough. Advised follow up with PCP/pulmonology next week. Discharge Note New Diagnosis: COPD exacerbation/UTI New Medications: cefuroxime and prednisone. Patient does have a nebulizer. Will send out dounebs. Will send out Robutussin AC to help with cough. Follow Up: pulm/pcp Results pending: sputum culture Outpatient testing to order: Repeat UA Latest Assessment & Plan (1) COPD exacerbation Current Visit: Yes Status: Acute Assessment & Plan: -Rocephin initiated -will continue add azithromycin -Nebs/inh -RT eval and follow -Supplemental oxygen with spo2 goal 89-92% -sputum culture pending -cxr with no acute findings -steroids - solumedrol -ABG if significant lethary/hypoxia -consider CT if no improvement 08/24: -DDImer at 0.55 -sputum culture pending -continue abx/steroids -Advair -On 5L -CT chest w/o contrast with no acute findings infiltrates, effusions or mass 08/25: -VQ scan today -oxygen down to 3L- baseline -solumedrol decreased to daily -Ativan prn -NEBs prn -continue abx - Will switch to levaquin on discharge -CMP/CBC reviewed 08/26/24: -aeration improved- at baseline oxygen 3L -Reviewed CT and VQ scan- no acute findings of PE or infectious process -Continue ceftriaxone for UTI/ azithromycin, switch to oral prednisone from solumedrol -CBC reviewed with increase WBC - most likely secondary to steroids - will trend -Sputum culture reviewed and pending 08/27: -Stable for discharge - will send home on cefuroxime (UTI), prednisone, duonebs (has nebulizer at home),and Robitussin AC -Sputum culture pending - will monitor and call if abx need changed -At 3L oxygen- baseline Code(s): J44.1 - CHRONIC OBSTRUCTIVE PULMONARY DISEASE W (ACUTE) EXACERBATION (2) Shortness of breath Current Visit: Yes Status: Acute Assessment & Plan: -secondary to COPD exac - see plan above Code(s): R06.02 - SHORTNESS OF BREATH (3) Hypertensive chronic kidney disease with stage 1 through stage 4 chronic kidney disease, or unspecified chronic kidney disease Current Visit: Yes Status: Acute Assessment & Plan: -Stable, continue home meds - monitor Code(s): I12.9 - HYPERTENSIVE CHRONIC KIDNEY DISEASE W STG 1-4/UNSP CHR KDNY (4) UTI (urinary tract infection) Current Visit: Yes Status: Acute Assessment & Plan: -urine suspicious for UTI, on ceftriaxone, -Ucult reviewed showing ecoli -diaz sensitive - continue ceftriaxone 08/27: -send home with cefuroxime -advised follow up with pcp for treatment response/ resolution VTE: lovenox PPI: Protonix Dispo: 1-2 days Code(s): N39.0 - URINARY TRACT INFECTION, SITE NOT SPECIFIED (5) Acute renal failure Current Visit: No Status: Acute Assessment & Plan: -baseline reviewed based on previous lab work around 1.2-1.4 -Reviewed CMP - creat at 1.61 today - most likely secondary to lasix given yesterday - will d/c -Monitor renal/lytes -avoid nephrotoxic meds 08/25: -CMP reviewed, creat now at baseline of 1.42 08/27: -CMP reviewed with creat better than baseline at 1.04 GERD -protonix/pepcid -Add carafate/mylanta (6) Elevated brain natriuretic peptide (BNP) level Current Visit: Yes Status: Acute Assessment & Plan: -no h/o CHF -BNP reviewed and elevated at 2570 -Obtain echo 08/24: -TRANSTHORACIC ECHOCARDIOGRAM 08/23/2024: Reviewed 1. Normal chamber sizes. 2. Mild concentric left ventricular hypertrophy. 3. Normal left ventricular systolic function without focal wall motion abnormalities. Estimated EF 60%. 4. Mild diastolic dysfunction. 5. Normal right ventricular systolic function. 6. Mild aortic sclerosis without stenosis. 7. Doppler: No significant valvular regurgitation. 8. Mildly calcified aortic root. 9. Normal PA pressure. 10. Normal right atrial pressure. 11. No pericardial effusion. Code(s): R79.89 - OTHER SPECIFIED ABNORMAL FINDINGS OF BLOOD CHEMISTRY Code(s): J44.1 - CHRONIC OBSTRUCTIVE PULMONARY DISEASE W (ACUTE) EXACERBATION (2) Shortness of breath I spent 40 minutes [id number] with the patient on the day of discharge performing discharge exam, discussing hospital stay and discharge instructions with patient and caregivers, preparation of discharge records, prescriptions & referral forms and addressing any questions/concerns the patient had as documented above. - Vitals & Intake/Output Vital Signs: Vital Signs Temperature 97.1 F 08/27/24 06:56 Pulse Rate 89 08/27/24 07:13 Respiratory Rate 16 08/27/24 07:13 Blood Pressure 165/95 08/27/24 06:56 O2 Sat by Pulse Oximetry 94 L 08/27/24 07:14 Intake & Output: Intake & Output 08/24/24 08/25/24 08/26/24 08/27/24 11:59 11:59 11:59 11:59 Intake Total 520 720 414 9215 Output Total 200 350 Balance 320 583 204 3262 Weight 70 kg 70.2 kg 69.8 kg 73.9 kg - Lab Result Diagrams: 08/27/24 06:15 08/27/24 06:15 Lab Results-Last 24 Hrs: Lab Results-Last 24 Hours 08/27/24 08/27/24 Range/Units 06:15 06:15 WBC 16.2 H (3.98-10.04) x10^3/uL RBC 4.10 (3.93-5.22) x10^6/uL Hgb 11.7 (11.2-15.7) g/dL Hct 38.9 (34.1-44.9) % MCV 94.9 H (79.4-94.8) fL MCH 28.5 (25.6-32.2) pg MCHC 30.1 L (32.2-35.5) g/dL RDW 13.8 (11.7-14.4) % Plt Count 264 (182-369) x10^3/uL MPV 10.3 (9.4-12.3) fL Gran % 86.5 H (34.0-71.1) % Immature Gran % (Auto) 3.3 H (0.001-0.429) % Nucleat RBC Rel Count 0.0 (0.00-0.2) % Eos # (Auto) 0.07 (0.04-0.36) x10^3/uL Immature Gran # (Auto) 0.53 H (0.001-0.031) x10^3u/L Absolute Lymphs (auto) 0.69 L (1.18-3.74) x10^3/uL Absolute Monos (auto) 0.84 (0.24-0.86) x10^3/uL Absolute Nucleated RBC 0.00 (0.00-0.012) x10^3u/L Lymphocytes % 4.3 L (19.3-51.7) % Monocytes % 5.2 (4.7-12.5) % Eosinophils % 0.4 L (0.7-5.8) % Basophils % 0.3 (0.1-1.2) % Absolute Granulocytes 14.05 H (1.56-6.13) x10^3/uL Basophils # 0.05 (0.01-0.08) x10^3/uL Sodium 142 (135-145) mmol/L Potassium 4.7 (3.5-5.1) mmol/L Chloride 105 (98-107) mmol/L Carbon Dioxide 33 H (22-30) mmol/L Anion Gap 8.4 (5-15) MEQ/L BUN 34 H (7-17) mg/dL Creatinine 1.04 (0.52-1.04) mg/dL Estimated GFR 54.7 ML/MIN Glucose 114 H (74-106) mg/dL Calcium 9.7 (8.4-10.2) mg/dL Total Bilirubin 0.40 (0.2-1.3) mg/dL AST 40 H (14-36) U/L ALT 55 H (0-35) U/L Alkaline Phosphatase 58 (38-126) U/L Serum Total Protein 6.3 (6.3-8.2) g/dL Albumin 3.7 (3.5-5.0) g/dL Micro Results-Entire Visit: Microbiology 08/22/24 19:41 Urine Culture - Final Urine, Void Escherichia Coli - Radiology Exams Ordered Rad Exams-Entire Visit: Radiology Procedures Category Date Time Status CHEST 2 VIEWS (PA AND LAT) Routine Exams 08/25/24 12:49 Completed PULMONARY PERF PARTICULATE [NUCMED] Routine Exams 08/25/24 08:00 Completed - Procedures and Test Procedures and Tests throughout Hospitalization: Therapy Orders & Screens 08/22/24 17:33 Respiratory Therapy Assessment DAILY Comment: 08/22/24 19:42 Oxygen Nasal Cannula 2 lpm Comment: Respiratory Therapy Consult ONCE Comment: Reason For Exam: 08/22/24 20:36 RT Screen per Nursing Assess ONCE Comment: Protocol Order Physician Instructions: Greater than 3 points order RT Admission Screen Reason For Exam: Triggered on Admission Diagnosis: shortness of breath Diagnosis: shortness of breath Pneumonia: No Home O2: Yes Asthma: No CHF: Yes Home CPAP/BIPAP: No Home Nebs/MDI: Yes Total Points: 13 08/23/24 12:55 Respiratory MDI BID Comment: Diagnosis: shortness of breath 08/24/24 21:22 EKG STAT Comment: Diagnosis: EXAC COPD, SOB Discharge Exam General Appearance: no apparent distress Neurologic Exam: alert, oriented x 3, cooperative Eye Exam: PERRL Ears, Nose, Throat Exam: normal ENT inspection Neck Exam: normal inspection Respiratory Exam: crackles/rales Cardiovascular Exam: regular rate/rhythm, normal heart sounds Gastrointestinal/Abdomen Exam: soft, normal bowel sounds Pelvic Exam: deferred Rectal Exam: deferred Back Exam: normal inspection Extremity Exam: normal inspection, limited range of motion Final Diagnosis/Problem List - Final Discharge Diagnosis/Problem (1) COPD exacerbation Current Visit: Yes Status: Acute Code(s): J44.1 - CHRONIC OBSTRUCTIVE PULMONARY DISEASE W (ACUTE) EXACERBATION (2) Shortness of breath Current Visit: Yes Status: Acute Code(s): R06.02 - SHORTNESS OF BREATH (3) Hypertensive chronic kidney disease with stage 1 through stage 4 chronic kidney disease, or unspecified chronic kidney disease Current Visit: Yes Status: Chronic Code(s): I12.9 - HYPERTENSIVE CHRONIC KIDNEY DISEASE W STG 1-4/UNSP CHR KDNY (4) UTI (urinary tract infection) Current Visit: Yes Status: Acute Code(s): N39.0 - URINARY TRACT INFECTION, SITE NOT SPECIFIED (5) Acute renal failure Current Visit: No Status: Chronic (6) Elevated brain natriuretic peptide (BNP) level Current Visit: Yes Status: Acute Code(s): R79.89 - OTHER SPECIFIED ABNORMAL FINDINGS OF BLOOD CHEMISTRY (7) GERD (gastroesophageal reflux disease) Current Visit: Yes Status: Chronic Code(s): K21.9 - GASTRO-ESOPHAGEAL REFLUX DISEASE WITHOUT ESOPHAGITIS - Discharge Disposition: Home, Self-Care Condition: Stable Prescriptions: New Sucralfate 1 gm [Carafate 1 GM] 1 tab PO ACHS 14 Days #14 tablet Cefuroxime Axetil [Cefuroxime] 500 mg PO BID 7 Days #14 tablet Prednisone 20 mg [Deltasone 20 mg] 20 mg PO BID 5 Days #10 tablet Albuterol/Ipratropium 3ml Neb* [DUONEB 0.5-3 MG/3 ml Neb] 3 ml IH Q6HPRN PRN 30 Days #120 amp PRN Reason: Shortness Of Breath/Wheezing Aspirin EC 81 mg [Ecotrin 81 mg] 81 mg PO DAILY tablet Guaifenesin/Codeine 5 ml [Robitussin AC Syrup Unit Dose Cup] 5 ml PO Q4H PRN PRN #210 ml MDD 30 ml PRN Reason: Cough Continue Fluticasone/Umeclidin/Vilanter [Trelegy Ellipta 100-62.5-25] 1 inh IH DAILY Albuterol Sulfate [Proair Respiclick] 90 mcg IH Q6H Potassium Chloride 20 meq PO TID Levothyroxine Sodium 88 Mcg [Synthroid 88 Mcg] 88 mcg PO DAILY Lisinopril 5 mg [Zestril 5 MG] 2.5 mg PO DAILY Famotidine 20 mg [Pepcid 20 MG] 20 mg PO DAILY Cinacalcet HCl 30 mg PO UD Metoprolol Succinate 25 mg PO DAILY Amlodipine Besylate 5 mg [Norvasc 5 mg] 5 mg PO DAILY Bumetanide 1 mg [Bumex 1 mg] 2 mg PO BID Acetaminophen 500 mg [Tylenol Extra Strength 500 mg] 500 mg PO HS Cholecalciferol (Vitamin D3) [Vitamin D3] 25 mcg PO DAILY Discontinued Prednisone 5 mg [Deltasone 5 mg] 5 mg PO DAILY Follow up with: MIKE ALY [Primary Care Provider] - SINGH YOUSSEF [ACTIVE STAFF] -
[2024-08-27] MEDS ORDERED: MEDICATION INTERVENTION MC SCH (09:45)
[2024-08-27] MEDS ORDERED: NON-FORMULARY ITEM (Fluticasone/Umeclidin/Vilanter [Trelegy Ellipta 100-62.5-25] 1 EACH Bl IH SCH (10:00)
[2024-08-27] MEDS: Toprol-Xl 25MG Tablets PO SCH (10:20)
[2024-08-27] MEDS: Pepcid 20 MG PO SCH (10:20)
[2024-08-27] MEDS: VITAMIN D PO SCH (10:20)
[2024-08-27] MEDS: BUMEX 1 MG PO SCH (10:20)
[2024-08-27] MEDS: Klor Con PO SCH (10:20)
[2024-08-27] MEDS: Zestril 5 MG PO SCH (10:21)
[2024-08-27] MEDS: NORVASC 5 MG PO SCH (10:22)
[2024-08-27] MEDS: SYNTHROID 88 MCG PO SCH (10:22)
[2024-08-27] MEDS ORDERED: VENTOLIN COMMON CANISTER IH SCH (13:00)
[2024-08-27] MEDS ORDERED: TYLENOL EXTRA STRENGTH 500 MG PO SCH (22:00)
== END 2024-08-27 11:26 | disposition home or self-care (01) | DRG 191 ==
LOC: ED 17:00 → MED SURG 19:23 → OBSVTOIN 08-23 15:30
PROVIDERS: ADMIT Internal Medicine Nephrology; ATTEND Internal Medicine Nephrology
DX: J44.1 Chronic obstructive pulmonary disease with (acute) exacerbation (principal); N17.9 Acute kidney failure, unspecified; N39.0 Urinary tract infection, site not specified; E78.5 Hyperlipidemia, unspecified; E03.9 Hypothyroidism, unspecified; D72.829 Elevated white blood cell count, unspecified; B96.20 Unspecified Escherichia coli [E. coli] as the cause of diseases classified elsewhere; R06.02 Shortness of breath; I12.9 Hypertensive chronic kidney disease with stage 1 through stage 4 chronic kidney disease, or unspecified chronic kidney disease; N18.9 Chronic kidney disease, unspecified; K21.9 Gastro-esophageal reflux disease without esophagitis; R79.89 Other specified abnormal findings of blood chemistry; Z79.899 Other long term (current) drug therapy
CPT/HCPCS: 0241U; 36000; 36415; 36600; 71045; 71046; 71250; 78580; 80053; 81001; 82375; 82803; 83605; 83735; 83880; 84145; 84484; 85025; 85027; 85379; 87077; 87086; 87186; 93005; 93268; 93306; 94640; 94762; 96365; 96367; 96374; 99285; A9540; A9567; J0456; J0696; J1650; J1940; J2060; J2919; Q3014; A9270-GY; G0378